=== PATIENT | female | born 1980 | race Caucasian/White ===

== ENCOUNTER 2018-01-12 05:18 | Emergency (ER) | payer MEDICARE, MEDICAID, SELFPAY ==
[2018-01-12 05:20] VITALS: BP 118/83; PULSE 81; RESP 20; TEMP 36.7; O2SAT 98; BMI 35.4
[2018-01-12] MEDS: Ondansetron 4 MG/2 ML Vial IV (05:55)
[2018-01-12] MEDS: 0.9% Normal Saline 1,000 ML 999 ML IV (05:55)
[2018-01-12] MEDS: Morphine 4 MG/ML Syringe IV (05:56)
[2018-01-12 06:09] LABS: Bacteria 0 SEEN /hpf (None Seen); Mucous, Urine 0 SEEN /hpf (<or=2+); Red Blood Cells-Urine 0 SEEN /hpf (0-5)
[2018-01-12 06:11] LABS: Absolute Lymphocyte Count 1.68 X10^3/ul (0.83-4.51); Basophil# 0.03 X10^3/uL; Basophil% 0.6 % (0-1); Eosinophils% 1.9 % (0-5); Hematocrit 38.2 % (37-47); Hemoglobin 12.7 g/dl (12.0-15.0); Lymphocyte # 1.68 X10^3/ul (4.0); Lymphocyte % 32.7 % (19-41); Mean Corp Hgb Conc 33.2 g/gl (32-36); Mean Corpuscular Hgb 29.9 pg (27.0-32.0); Mean Corpuscular Volume 89.9 fL (81-99); Mean Platelet Vol. 9.6 fl (6.2-12.0); Monocyte# 0.32 X10^3/uL; Monocyte% 6.2 % (0-10); Neutrophil # 2.98 X10^3/uL (2.7-7.7); Neutrophil % 58.2 % (47-70); Platelet Count 263 K/mm3 (150-450); RBC Distribution Width CV 13.3 % (11.6-14.6); RBC Distribution Width SD 43.2 fl (35.1-43.9); Red Blood Count 4.25 M/mm3 (4.2-5.4); White Blood Count 5.1 K/mm3 (4.4-11.0)
[2018-01-12 06:14] LABS: POSITIVE COUNT NO; POSITIVE DIFFERENTIAL NO; POSITIVE MORPHOLOGY NO
[2018-01-12 06:18] LABS: Anion Gap 6 (5-15); BUN 13 mg/dL (7-18); BUN/Creat Ratio 22.1 RATIO (10-20); Calcium,Total 7.6 mg/dL (8.5-10.1); Chloride 107 mmol/L (98-107); Creatinine, Serum 0.59 mg/dL (0.55-1.02); EST Glomerular Filtration Rate 122 mL/min (>60); Est Glom Filt Rate - Afr Amer 147 mL/min (>60); Estimated Creatinine Clearance 111.64 ml/min; Glucose 291 mg/dL (74-106); Potassium 3.7 mmol/L (3.5-5.1); Sodium Level 138 mmol/L (136-145)
[2018-01-12 06:20] LABS: Color, Urine Yellow (Yellow); Glucose, Dipstick 1000 mg/dl (Normal); Ketone-Dipstick Negative (Negative); Leukocyte Esterase-Dipstick 500 /ul (Negative); Nitrite-Dipstick Positive (Negative); Occult Blood-Urine 25 /ul (Negative); Protein-Dipstick 15 mg/dl (Negative); Urine Bilirubin Dipstick Negative (Negative); Urine Clarity Sl. Cloudy (Clear); Urine Urobilinogen Normal (Normal)
[2018-01-12 06:23] LABS: Internal QC Validated? YES +Cl - CLEAR BKGD; Pregnancy, Urine Negative Negative
--- NOTE | 2018-01-12 06:33 | ED.VISSUMM ---
- ER Visit Summary Date of Service: 01/12/18 Chief Complaint: Left flank pain History of Present Illness: The patient is a 37 F presenting with left flank pain. This started 2 days ago. She has tried ibuprofen at home with no relief. She went to [facility] yesterday. She had blood work and CT which were unremarkable per the patient. She was told that she did not have a kidney stone. She states this feels like her previous kidney infections. She denies fever or other complaints. Physical Examination: Vitals are stable. Patient is afebrile. Alert no acute distress. HEENT exam is unremarkable. Neck is supple. Lungs are clear and equal bilaterally. Heart is regular rate and rhythm. Abdomen is soft nontender nondistended. No guarding or rebound Back: left CVA tenderness Extremities are unremarkable. Skin is warm and dry. Remainder of exam is unremarkable. Emergency Department Course and Treatment: Patient is given morphine, Zofran IV. CBC unremarkable. Chemistries show glucose 291. HCG negative. UA is contaminated, also shows 25-50 white blood cells, positive leukocyte, positive nitrite. She states this feels very similar to previous kidney infections. Patient is given Bactrim. She is advised to follow-up with Dr. Russo diet consultant for no doc. Advised return to ED if worsening complaints. Disposition: Discharge home Impression: Pyelonephritis This note was generated with [employer] dictation software. It may contain incorrect words, spelling, and punctuation that were not noted in review of the chart prior to signing ED Disposition - Plan for ED Patient: Chief Complaint: Flank Pain Instructions: ED Kidney Infec Female Prescriptions: Smz/Tmp Ds [Bactrim Ds] 1 tablet PO BID #14 tablet Referrals: Pedro Russo MD [STAFF PHYSICIAN] - Care Physician,No Primary [Primary Care Provider] -
[2018-01-12 06:34] LABS: Squamous Epithelial Cells - UA 25-50 SEEN /hpf (5-10); White Blood Cells 25-50 SEEN /hpf (0-5)
--- NOTE | 2018-01-12 06:39 | ED.DEP ---
ED Disposition - Plan for ED Patient: Chief Complaint: Flank Pain Instructions: ED Kidney Infec Female Prescriptions: Smz/Tmp Ds [Bactrim Ds] 1 tablet PO BID #14 tablet Referrals: Care Physician,No Primary [Primary Care Provider] - Pedro Russo MD [STAFF PHYSICIAN] -
[2018-01-12] MEDS: Smz/Tmp Ds Tablet 1 TABLET PO (07:01)
[2018-01-12 07:03] VITALS: BP 123/58; PULSE 69; O2SAT 96
== END 2018-01-12 07:04 | disposition home or self-care (01) ==
LOC: ED 05:49
PROVIDERS: Emergency Provider Emergency Medicine
DX: N12 Tubulo-interstitial nephritis, not specified as acute or chronic (principal); Z72.0 Tobacco use; Z85.41 Personal history of malignant neoplasm of cervix uteri
CPT/HCPCS: 80048; 81001; 81025; 85025; 96361; 96374; 96375; 99283; J7030; A4216; J2405

== ENCOUNTER 2018-05-28 08:07 | Emergency (ER) | payer SELFPAY ==
[2018-05-28 08:09] VITALS: BP 132/77; PULSE 85; RESP 16; TEMP 36; O2SAT 99; BMI 31.6
--- NOTE | 2018-05-28 08:39 | ED.VISSUMM ---
- ER Visit Summary Date of Service: 05/28/18 Chief Complaint: Abdominal pain History of Present Illness: The patient is a 37 F with no primary care physician. She reports that she has a history of cervical cancer that required radiation. This was complicated by a bowel rupture which resulted in a colostomy which was converted to an ileostomy and then reversed in 2013 2014. She was left with hernias from this. She reports that she has had abdominal pain for approximately a month. The pain is intermittent and it began again this morning. Is a cramping pain is 5 out of 10 severity currently an 8 out of 10 severity at worst. Is worsened by laying on her left side. Is relieved by a hot bath. She had nausea without vomiting. She reports that she had 3 episodes of diarrhea today and 2 yesterday. No blood in her stools or black tarry stools. She is passing flatus. She has frequent urination with large volumes. She denies any dysuria. On review of systems patient reports she has a sore throat is 3 out of 10 severity and a mild cough. She denies any fever or chills. No chest pain or shortness of breath. Physical Examination: Vitals: Stable. Afebrile. General: Well-nourished and well-developed. Head: Normocephalic atraumatic. HEENT: Pharyngeal erythema. No tonsillar exudate or enlargement. No cervical lymphadenopathy. Neck: Supple, no lymphadenopathy. No JVD. Nontender. Cardiovascular: Regular rate and rhythm. No murmurs. Respiratory: No respiratory distress. Clear to auscultation bilaterally. Abdominal: Soft, large ventral hernia in the epigastric region that is easily reducible. Moderate sized ventral hernia in the left lower quadrant that is also easily reducible. Both of these areas are mildly tender to palpation. Nondistended, normal bowel sounds. No guarding, rebound, or peritoneal signs. Back: Nontender. Extremities: Nontender, no edema. Skin: Normal color, no rash. Neurologic: Alert and oriented ?3. Cranial nerves II through XII are intact. Normal strength and sensation. Psych: Normal affect. Emergency Department Course and Treatment: I had a prolonged discussion with the patient about the etiology of hernias and when they need to be addressed. She readily admits that she is just so paranoid about the possibility of bowel rupture from her prior colostomy that she was concerned about this. We also discussed her frequent urination. She does report that she has a history of type 2 diabetes mellitus and does not have insurance. She has not been taking any medications for approximately 6 months. She was on metformin and glimepiride. I offered to do screening labs and hemoglobin A1c on the patient. However, she has financial concerns that she is not insured. An Accu-Chek was obtained and her blood sugar is 314. Treatment Plan: I had a prolonged discussion with the patient about the need to treat her diabetes mellitus. She reports that she was supposed to have her ventral hernias repaired, but that they could not because her sugar had been out of control. She will be discharged on metformin 500 mg twice daily which she is on [employer] $4 list. She is also instructed to follow-up the [facility] within 1 week to get her sugar checked again. I discussed with the fact that they would have resources available to help with blood sugar monitoring equipment and once her sugar is better controlled she can then have her hernia repaired. We discussed the symptoms of a strangulated or incarcerated hernia and she is instructed to return for the emergency department for these things. Return to the emergency department for any worsening symptoms. Disposition: To home in improved and stable condition. Impression: 1. Ventral hernias. 2. Type 2 diabetes mellitus. This note was generated with [employer] dictation software. It may contain incorrect words, spelling, and punctuation that were not noted in review of the chart prior to signing ED Disposition - Plan for ED Patient: Instructions: What Is Type 2 Diabetes?, What Is a Hernia? Prescriptions: Metformin HCl 500 mg PO BID #60 tablet Referrals: [facility] [NON-STAFF] - 1 Week
[2018-05-28 08:45] LABS: Bedside Glucose 314 mg/dL (70-110)
--- NOTE | 2018-05-28 08:49 | ED.DCSUM_ITS ---
- ER Visit Summary Date of Service: 05/28/18 Chief Complaint: Abdominal pain History of Present Illness: The patient is a 37 F with no primary care physician. She reports that she has a history of cervical cancer that required radiation. This was complicated by a bowel rupture which resulted in a colostom y which was converted to an ileostomy and then reversed in 2013 2014. She was left with hernias from this. She reports that she has had abdominal pain for approximately a month. The pain is intermittent and it began again this morning. Is a cramping pain is 5 out of 10 severity currently an 8 out of 10 severity at worst. Is worsened by laying on her left side. Is relieved by a hot bath. She had nausea without vomiting. She reports that she had 3 episodes of diarrhea today and 2 yesterday. No blood in her stools or black tarry stools. She is passing flatus. She has frequent urination with large volumes. She denies any dysuria. On review of systems patient reports she has a sore throat is 3 out of 10 severity and a mild cough. She denies any fever or chills. No chest pain or s hortness of breath. Physical Examination: Vitals: Stable. Afebrile. General: Well-nourished and well-developed. Head: Normocephalic atraumatic. HEENT: Pharyngeal erythema. No tonsillar exudate or enlargement. No cervical lymphadenopathy. Neck: Supple, no lymphadenopathy. No JVD. Nontender. Cardiovascular: Regular rate and rhythm. No murmurs. Respiratory: No respiratory distress. Clear to auscultation bilaterally. Abdominal: Soft, large ventral hernia in the epigastric region that is easily reducible. Moderate sized ventral hernia in the left lower quadrant that is also easily reducible. Both of these areas are mildly tender to palpation. Nondistended, normal bowel sounds. No guarding, rebound, or peritoneal signs. Back: Nontender. Extremities: Nontender, no edema. Skin: Normal color, no rash. Neurologic: Alert and oriented ?3. Cranial nerves II through XII are intact. Normal strength and sensation. Psych: Normal affect. Emergency Department Course and Treatment: I had a prolonged discussion with the patient about the etiology of hernias and when they need to be addressed. She readily admits that she is just so paranoid about the possibility of bowel rupture from her prior colostomy that she was concerned about this. We also discussed her frequent urination. She does report that she has a history of type 2 diabetes mellitus and does not have insurance. She has not been taking any medications for approximately 6 months. She was on metformin and glimepiride. I offered to do screening labs and hemoglobin A1c on the patient. However, she has financial concerns that she is not insured. An Accu-Chek was obtained and her blood sugar is 314. Treatment Plan: I had a prolonged discussion with the patient about the need to treat her diabetes mellitus. She reports that she was supposed to have her ventral hernias repaired, but that they could not because her sugar had been out of control. She will be discharged on metformin 500 mg twice daily which she is on [employer] $4 list. She is also instructed to follow-up the [facility] within 1 week to get her sugar checked again. I discussed with the fact that they would have resources available to help with blood sugar monitoring equipment and once her sugar is better controlled she can then have her hernia repaired. We discussed the symptoms of a strangulated or incarcerated hernia and she is instructed to return for the emergency department for these things. Return to the emergency department for any worsening symptoms. Disposition: To home in improved and stable condition. Impression: 1. Ventral hernias. 2. Type 2 diabetes mellitus. This note was generated with [employer] dictation software. It may contain incorrect words, spelling, and punctuation that were not noted in review of the chart prior to signing ED Disposition - Plan for ED Patient: Instructions: What Is Type 2 Diabetes?, What Is a Hernia? Prescriptions: Metformin HCl 500 mg PO BID #60 tablet Referrals: [facility] [NON-STAFF] - 1 Week
[2018-05-28 09:16] VITALS: PULSE 88; RESP 16; O2SAT 99
== END 2018-05-28 09:19 | disposition home or self-care (01) ==
PROVIDERS: Emergency Provider Emergency Medicine
DX: K43.9 Ventral hernia without obstruction or gangrene (principal); E11.9 Type 2 diabetes mellitus without complications; F17.210 Nicotine dependence, cigarettes, uncomplicated; J02.9 Acute pharyngitis, unspecified; Z93.2 Ileostomy status; Z85.41 Personal history of malignant neoplasm of cervix uteri
CPT/HCPCS: 82962; 99282

== ENCOUNTER 2018-07-27 13:51 | Emergency (ER) | payer SELFPAY ==
[2018-07-27 13:52] VITALS: BP 130/77; PULSE 89; RESP 16; TEMP 36.6; O2SAT 100; BMI 28.3
--- NOTE | 2018-07-27 14:28 | CT_ITS ---
STUDY: CT ABDOMEN AND PELVIS WITHOUT CONTRAST REASON FOR EXAM: Female, 37 years old. Abdominal pain and nausea beginning today. History of multiple hernias, ileostomy and colostomy. History of cervical cancer with radiation. RADIATION DOSAGE (If Supplied By Facility): CTDIvol = ( 11.62 ) mGy, DLP = ( 587.37 ) mGycm TECHNIQUE: Transaxial images were obtained from the dome of the diaphragm to the symphysis pubis without oral contrast, and without intravenous contrast. Sagittal and coronal images were reconstructed. Individualized dose optimization techniques were used for this CT. COMPARISON: None. FINDINGS: The visualized lung bases are unremarkable. The visualized portions of the heart are within normal limits. The liver is mildly enlarged but uniform in density without obvious mass. Normal gallbladder and extrahepatic biliary system. Borderline splenomegaly. Normal pancreas. Normal bilateral adrenal glands. Normal right kidney. Normal left kidney. Normal visualized stomach. There are surgical changes in the small bowel in the left lower quadrant. Small bowel appears otherwise unremarkable. Findings suggestive of partial left colectomy surgical clips along the descending and sigmoid colon. The cecum lies bladder dome. There is non-visualization of the appendix. Normal abdominal aorta. There is an IVC filter in place. Normal retroperitoneum. Normal urinary bladder. The uterus is of normal size. There is no adnexal mass. No pelvic lymphadenopathy. There is a large phlebolith in the right pelvis. There is no free fluid in both supra vesical spaces extending upward along the paracolic gutters most marked on the left. There is no evidence of free air. There is a supraumbilical hernia containing a portion of the transverse colon without obstruction. Slightly lower to the left is a hernia through the mid rectus muscle containing multiple nonobstructed small bowel loops as well as minimal ascites. There are surgical clips in the overlying skin. This is thought to be a site of a prior ileostomy or colostomy. There is a cyst midline surgical scar. Normal osseous structures. CT/Abdomen/Pelvis without Cont IMPRESSION: 1. Multiple abdominal hernias containing both colon and small bowel. There is no obvious obstruction. 2. Mild ascites most marked in the left paracolic gutter. 3. Mild hepatosplenomegaly. 4. IVC filter. 5. A surgical changes of the small bowel as well as what appears to be a partial left colectomy. Electronically Signed: Tea Lee DO at 16:30 EDT Tel [phone], Service support ,
--- NOTE | 2018-07-27 14:30 | ED.VISSUMM ---
- ER Visit Summary Date of Service: 07/27/18 Chief Complaint: [] Left lower abdominal pain directly over prior ileostomy site History of Present Illness: The patient is a 37 F [] indicates that she has had extensive abdominal surgery related to the fact that she had cervical cancer in 2011 after radiation therapy she indicates her bowel rupture, and she had colostomy was then ileostomies on the same area of the left lower abdomen, all those conditions improved and her ileostomies were reversed she reports for many many months she has been having intermittent pain to left lower abdomen ileostomy site region she knows she has a hernia to this area, she indicates she is waiting for her insurance to kick in the last few weeks the pain seems to intensify and intensified while she was at work for unspecified reasons and she came to the emergency department, She is been able to eat and drink without difficulty bowel bladder habits have been unremarkable, she denies as she reports her ovaries removed away from the radiation site, she denies any other past history Physical Examination: [] Vital signs are within normal range General, no distress resting comfortably HEENT is generally unremarkable The neck is supple no adenopathy Cardiovascular, regular rate and rhythm Lungs, clear bilateral Abdomen, soft nontender, she does have an area to the left lower abdomen that basically is demarcated by her prior either ileostomy or colostomy she states they were both in the same spot there is a slight defect in the skin and subcu tissue here about 1 or 2 cm this area however is soft there is no rebound guarding organomegaly or signs of obvious hernia or incarceration at this time but this is the area that is been troubling her for many months, there is no warmth redness or signs of infection or mass Extremities, no clubbing cyanosis or edema Neurologic, awake alert answering questions appropriately moving all 4 extremities Test Results: [] Emergency Department Course and Treatment: [] This is a long-standing issue for many months given all the above screening labs and CT are obtained Treatment Plan: [] The patient's screening labs are unremarkable except there are signs of UTI versus contamination on the UA urine culture sent she was started on Cipro, the abdominal CT shows again multiple abdominal hernias there are some loops of bowel and some of them there is no signs of obstruction Dilation the patient is resting company in the bed the abdomen remains soft and nontender her only complaint is left lower quadrant prior ileostomy site and there is an obvious hernia here there is no signs of obstruction had a long conversation with her she is comfortable discharge home she will be treated with Cipro for the UTI she will be referred to the starts been clinic as primary care management I also suggested she follow-up with her [facility] surgeons for further evaluation of all these abdominal wall hernias, we did discuss the concept of incarceration obstruction etc. she understands and again she is been having the symptoms long-standing she will follow-up and return for change in symptoms, she also knows that the urine culture was sent and her follow-up physician should review that Disposition: [] Home with stable Impression: [] Acute recurrent abdominal pain, history of abdominal wall hernias repaired related to multiple abdominal surgeries, UTI This note was generated with [employer] dictation software. It may contain incorrect words, spelling, and punctuation that were not noted in review of the chart prior to signing ED Disposition - Plan for ED Patient: Referrals: Care Physician,No Primary [Primary Care Provider] -
[2018-07-27] MEDS: 0.9% Normal Saline 1,000 ML 1000 ML IV (15:08)
[2018-07-27] MEDS: Morphine 4 MG/ML Syringe IV (15:09)
[2018-07-27] MEDS: Ondansetron 4 MG/2 ML Vial IV (15:10)
[2018-07-27 15:12] VITALS: BP 130/77; PULSE 89; RESP 16; TEMP 36.6; O2SAT 100
[2018-07-27 15:28] LABS: Absolute Lymphocyte Count 1.32 X10^3/ul (0.83-4.51); Absolute Neutrophil Count 3.8 X10^3/uL (2.0-7.7); Basophil# 0.01 X10^3/uL; Basophil% 0.2 % (0-1); Eosinophil# 0.03 X10^3/uL; Eosinophils% 0.5 % (0-5); Hematocrit 39.6 % (37-47); Lymphocyte # 1.32 X10^3/ul (4.0); Mean Corp Hgb Conc 32.8 g/gl (32-36); Mean Corpuscular Volume 88.4 fL (81-99); Mean Platelet Vol. 9.2 fl (6.2-12.0); Monocyte% 5.4 % (0-10); Neutrophil # 3.83 X10^3/uL (2.7-7.7); Neutrophil % 69.5 % (47-70); Platelet Count 263 K/mm3 (150-450); RBC Distribution Width CV 12.9 % (11.6-14.6); Red Blood Count 4.48 M/mm3 (4.2-5.4); White Blood Count 5.5 K/mm3 (4.4-11.0)
[2018-07-27 15:29] LABS: Color, Urine Yellow (Yellow); Glucose, Dipstick 50 mg/dl (Normal); Ketone-Dipstick 5 mg/dl (Negative); Leukocyte Esterase-Dipstick 100 /ul (Negative); Nitrite-Dipstick Negative (Negative); Occult Blood-Urine 250 /ul (Negative); Protein-Dipstick 100 mg/dl (Negative); Specific Gravity, Urine 1.025 (1.002-1.030); Urine Bilirubin Dipstick Negative (Negative); Urine Clarity Cloudy (Clear); Urine Urobilinogen Normal (Normal)
[2018-07-27 15:36] LABS: POSITIVE COUNT NO; POSITIVE DIFFERENTIAL NO; POSITIVE MORPHOLOGY NO
[2018-07-27 15:41] LABS: Bacteria 2+ /hpf (None Seen); Mucous, Urine 4+ /hpf (<or=2+); Red Blood Cells-Urine 50-100 SEEN /hpf (0-5); Squamous Epithelial Cells - UA 0-5 SEEN /hpf (5-10); White Blood Cells 10-25 SEEN /hpf (0-5)
[2018-07-27 15:48] LABS: AST(SGOT) 7 U/L (15-37); Alanine Aminotransfer ALT/SGPT 12 U/L (13-56); Albumin, Serum 3.3 g/dL (3.2-5.0); Alkaline Phosphatase 53 U/L (45-117); Anion Gap 6 (5-15); BUN 9 mg/dL (7-18); BUN/Creat Ratio 14.4 RATIO (10-20); Bilirubin, Direct 0.11 mg/dL (0.00-0.30); Calcium,Total 8.7 mg/dL (8.5-10.1); Chloride 102 mmol/L (98-107); Creatinine, Serum 0.62 mg/dL (0.55-1.02); EST Glomerular Filtration Rate 113 mL/min (>60); Est Glom Filt Rate - Afr Amer 137 mL/min (>60); Estimated Creatinine Clearance 101.77 ml/min; Globulin 3.9 g/dL (2.2-4.2); Glucose 167 mg/dL (74-106); Lipase 62 U/L (73-393); Potassium 3.5 mmol/L (3.5-5.1); Protein, Total 7.2 g/dL (6.4-8.2); Sodium Level 138 mmol/L (136-145)
[2018-07-27 15:54] LABS: Internal QC Validated? YES +Cl - CLEAR BKGD; Pregnancy, Serum, hCG Quali. NEGATIVE Negative
--- NOTE | 2018-07-27 16:47 | ED.DEP ---
ED Disposition - Plan for ED Patient: Instructions: ED Abdominal Pain Unkn Cause, ED UTI Cystitis Female Prescriptions: Ciprofloxacin [Cipro] 500 mg PO BID #14 tab Referrals: Care Physician,No Primary [Primary Care Provider] - [facility] [NON-STAFF] - Additional Instructions: Please follow-up with your surgeons at [facility] for the abdominal wall hernias return for change in symptoms, have your outpatient providers check the results of your urine culture
--- NOTE | 2018-07-27 16:50 | DCINST.ED_ITS ---
ED Disposition - Plan for ED Patient: Instructions: ED Abdominal Pain Unkn Cause, ED UTI Cystitis Female Prescriptions: Ciprofloxacin [Cipro] 500 mg PO BID #14 tab Referrals: Care Physician,No Primary [Primary Care Provider] - [facility] [NON-STAFF] - Additional Instructions: Please follow-up with your surgeons at [facility] for the abdominal wall hernias return for change in symptoms, have your outpatient providers check the results of your urine culture
--- NOTE | 2018-07-27 16:51 | DCINST.ED_ITS ---
ED Disposition - Plan for ED Patient: Instructions: ED Abdominal Pain Unkn Cause, ED UTI Cystitis Female Prescriptions: Ciprofloxacin [Cipro] 500 mg PO BID #14 tab Referrals: [facility] [NON-STAFF] - Care Physician,No Primary [Primary Care Provider] - Additional Instructions: Please follow-up with your surgeons at [facility] for the abdominal wall hernias return for change in symptoms, have your outpatient providers check the results of your urine culture
[2018-07-27 17:05] VITALS: BP 97/65; RESP 18
== END 2018-07-27 17:07 | disposition home or self-care (01) ==
LOC: ED 14:43
PROVIDERS: Emergency Provider Emergency Medicine
DX: K46.9 Unspecified abdominal hernia without obstruction or gangrene (principal); N39.0 Urinary tract infection, site not specified; Z93.2 Ileostomy status; Z85.41 Personal history of malignant neoplasm of cervix uteri; Z93.3 Colostomy status
CPT/HCPCS: 74176; 80048; 80076; 81001; 83690; 84703; 85025; 87086; 87088; 87186; 96361; 96374; 96375; 99285; J7030; J2405

== ENCOUNTER 2018-09-21 14:40 | Emergency (ER) | payer SELFPAY ==
[2018-09-21 14:41] VITALS: BP 134/68; PULSE 89; RESP 18; TEMP 36.3; O2SAT 98; BMI 30.6
[2018-09-21 14:55] LABS: Bedside Glucose 231 mg/dL (70-110)
[2018-09-21] MEDS: 0.9% Normal Saline 1,000 ML 1000 ML IV (15:22)
--- NOTE | 2018-09-21 15:23 | ED.DCSUM_ITS ---
- ER Visit Summary Date of Service: 09/21/18 Chief Complaint: [Concern for hyperglycemia] History of Present Illness: The patient is a 37 F [to the emergency department concerned that she might have elevated blood sugars. Patient states that she has been without her oral diabetic medications for about 2 months when she ran out because she does not have insurance. While at work today patient states that she started feeling very fatigued and started having numbness and tingling in her right hand mostly the fingertips as well as the right foot/toes. Patient states the symptoms started about 3 hours ago. Patient has had similar episodes multiple times in the last year when her blood sugars been elevated. Patient states that she does not have a working glucometer. She denies any weakness in extremities. She denies any headache. Patient felt well prior to arriving to work. Patient has history of diabetes that she was diagnosed with about 5 years ago after she was treated for cervical cancer. Patient also with some history of anxiety. She currently only has some mild residual numbness and tingling in the fingertips of the right hand however the foot has resolved.] Physical Examination: HEENT-PERRLA, EOMI. Cranial nerves II through XII grossly intact. TMs clear. Mucous membranes moist. No adenopathy. Cardiovascular-regular rate and rhythm without murmur or ectopy Lungs-clear to auscultation, chest wall stable without crepitus or subcu emphysema Abdomen-normoactive bowel sounds, soft, nontender, no rebound or rigidity, no peritoneal signs. Neuro tjog-klpija-[id number]-nose and heel harris testing within normal limits, negative Romberg, negative , Fundi benign. NIH stroke scale was a 1 given for some paresthesias to the fingertips. Extremities-intact ?4, normal range of motion, normal pulses, atraumatic [] Test Results: CBC with differential 15 was normal. Chemistries unremarkable. BUN was centigram 0.77. Glucose was 220. [] Emergency Department Course and Treatment: [Same fluid bolus. Case was discussed with Dr. De La Rosa who is on-call for no doc. I was asked to start patient on metformin 500 mg ER once a day as well as Amaryl 4 mg daily. It would be happy to follow her up in the office.] Treatment Plan: [Follow-up with primary care physician in 3 to 5 days.] Disposition: [Discharged home in stable condition] Impression: Paresthesias Hyperglycemia] This note was generated with [employer] dictation software. It may contain incorrect words, spelling, and punctuation that were not noted in review of the chart prior to signing ED Disposition - Plan for ED Patient: Referrals: Care Physician,No Primary [Primary Care Provider] -
[2018-09-21 15:36] LABS: Anion Gap 5 (5-15); BUN 10 mg/dL (7-18); BUN/Creat Ratio 13.1 RATIO (10-20); Calcium,Total 8.6 mg/dL (8.5-10.1); Chloride 105 mmol/L (98-107); Creatinine, Serum 0.77 mg/dL (0.55-1.02); EST Glomerular Filtration Rate 89 mL/min (>60); Est Glom Filt Rate - Afr Amer 108 mL/min (>60); Estimated Creatinine Clearance 85.54 ml/min; Glucose 220 mg/dL (74-106); Potassium 3.4 mmol/L (3.5-5.1); Sodium Level 139 mmol/L (136-145)
[2018-09-21 15:37] LABS: Absolute Lymphocyte Count 1.38 X10^3/ul (0.83-4.51); Absolute Neutrophil Count 3.4 X10^3/uL (2.0-7.7); Eosinophil# 0.06 X10^3/uL; Eosinophils% 1.2 % (0-5); Hematocrit 36.8 % (37-47); Hemoglobin 12.2 g/dl (12.0-15.0); Lymphocyte # 1.38 X10^3/ul (4.0); Mean Corp Hgb Conc 33.2 g/gl (32-36); Mean Corpuscular Hgb 29.6 pg (27.0-32.0); Mean Corpuscular Volume 89.3 fL (81-99); Mean Platelet Vol. 9.5 fl (6.2-12.0); Monocyte# 0.31 X10^3/uL; Monocyte% 6.1 % (0-10); Neutrophil # 3.36 X10^3/uL (2.7-7.7); Neutrophil % 65.5 % (47-70); Platelet Count 254 K/mm3 (150-450); RBC Distribution Width CV 13.3 % (11.6-14.6); RBC Distribution Width SD 42.4 fl (35.1-43.9); Red Blood Count 4.12 M/mm3 (4.2-5.4); White Blood Count 5.1 K/mm3 (4.4-11.0)
[2018-09-21 15:38] LABS: POSITIVE COUNT NO; POSITIVE DIFFERENTIAL NO; POSITIVE MORPHOLOGY NO
[2018-09-21 16:30] LABS: Bedside Glucose 165 mg/dL (70-110)
--- NOTE | 2018-09-21 16:44 | ED.DEP ---
ED Disposition - Plan for ED Patient: Instructions: Diabetic Hyperglycemia, Paraesthesias Prescriptions: Glimepiride [Amaryl] 4 mg PO DAILY #30 tab Prescription Printed Metformin HCl [Metformin HCl ER] 500 mg PO DAILY #30 tab.er.24h Prescription Printed Referrals: Care Physician,No Primary [Primary Care Provider] - Leatha De La Rosa MD [STAFF PHYSICIAN] - 3-5 Days
[2018-09-21 16:55] VITALS: RESP 18; O2SAT 94
== END 2018-09-21 16:56 | disposition home or self-care (01) ==
PROVIDERS: Emergency Provider Emergency Medicine
DX: R20.2 Paresthesia of skin (principal); E11.65 Type 2 diabetes mellitus with hyperglycemia; F17.210 Nicotine dependence, cigarettes, uncomplicated; Z85.41 Personal history of malignant neoplasm of cervix uteri; F41.9 Anxiety disorder, unspecified
CPT/HCPCS: 80048; 82962; 85025; 99283; J7030; A4216

== ENCOUNTER 2018-11-09 16:20 | Emergency (ER) | payer SELFPAY ==
[2018-11-09 16:21] VITALS: BP 120/75; PULSE 84; RESP 16; TEMP 36.1; O2SAT 99; BMI 32.1
[2018-11-09 16:52] VITALS: BP 117/72; PULSE 84; RESP 14; O2SAT 100
[2018-11-09 17:02] VITALS: O2SAT 99
--- NOTE | 2018-11-09 17:02 | RAD_ITS ---
STUDY: X-RAY CHEST REASON FOR EXAM: Female, 38 years old. Chest pain TECHNIQUE: Single AP portable view of the chest. COMPARISON: CT scan from 07/27/2018 FINDINGS: Stable blunting of the left lateral costophrenic angle due to chronic pleural-parenchymal change. The rest of bilateral lungs are clear and expanded. There is no demonstrated pleural abnormality on the right. Normal size heart. Normal mediastinum and luis enrique. Normal visualized pulmonary arteries. Normal visualized aortic arch and descending thoracic aorta. Unremarkable visualized thoracic spine. Normal visualized ribs, clavicles, and shoulders. There is no demonstrated abnormality of the visualized soft tissue structures of the upper abdomen. 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 No evidence of acute intrathoracic process, pneumonia, or CHF. Electronically Signed: Calin Gil MD at 17:25 EDT Tel [phone], Service support ,
--- NOTE | 2018-11-09 17:02 | EKG12_ITS ---
Test Reason : CP Blood Pressure : / mmHG Vent. Rate : 077 BPM Atrial Rate : 077 BPM P-R Int : 142 ms QRS Dur : 076 ms QT Int : 382 ms P-R-T Axes : 041 013 019 degrees QTc Int : 432 ms Normal sinus rhythm Normal ECG Confirmed by AZAM ARIZA, GARCIA ([id number]), medical transcription editor AKUA ANDRES ([id number]) on 11/12/2018 1:03:08 PM Referred By: PC Confirmed By:GARCIA NASCIMENTO MD
[2018-11-09] MEDS: Aspirin 81 MG TAB.CHEW 324 MG PO (17:09)
[2018-11-09 17:13] LABS: Absolute Lymphocyte Count 1.57 X10^3/uL (0.83-4.51); Absolute Neutrophil Count 4.5 X10^3/uL (2.0-7.7); Basophil# 0.01 X10^3/uL; Basophil% 0.2 % (0-1); Eosinophil# 0.03 X10^3/uL; Eosinophils% 0.5 % (0-5); Hematocrit 40.3 % (37-47); Hemoglobin 13.5 g/dL (12.0-15.0); Lymphocyte # 1.57 X10^3/ul (4.0); Lymphocyte % 24.2 % (19-41); Mean Corp Hgb Conc 33.5 g/dL (32-36); Mean Corpuscular Hgb 30.8 pg (27.0-32.0); Mean Corpuscular Volume 91.8 fL (81-99); Mean Platelet Vol. 8.9 fl (6.2-12.0); Monocyte# 0.38 X10^3/uL; Monocyte% 5.8 % (0-10); NRBC Flagged by Analyzer 0 % (0-5); Neutrophil # 4.49 X10^3/uL (2.7-7.7); Platelet Count 261 K/mm3 (150-450); RBC Distribution Width CV 12.7 % (11.6-14.6); RBC Distribution Width SD 42.5 fl (35.1-43.9); Red Blood Count 4.39 M/mm3 (4.2-5.4); White Blood Count 6.5 K/mm3 (4.4-11.0)
--- NOTE | 2018-11-09 17:27 | ED.RN ---
NO OLD EKG
[2018-11-09 17:29] LABS: Anion Gap 3 (5-15); BUN 14 mg/dL (7-18); BUN/Creat Ratio 19.2 RATIO (10-20); Chloride 104 mmol/L (98-107); Creatinine, Serum 0.73 mg/dL (0.55-1.02); EST Glomerular Filtration Rate 95 mL/min (>60); Est Glom Filt Rate - Afr Amer 114 mL/min (>60); Estimated Creatinine Clearance 85.59 ml/min; Glucose 132 mg/dL (74-106); Potassium 3.9 mmol/L (3.5-5.1); Sodium Level 139 mmol/L (136-145)
[2018-11-09 17:46] LABS: D-Dimer Quantitative (DVT/PE) < 0.27 FEU/ug/m (0.27-0.49)
--- NOTE | 2018-11-09 18:15 | ED.VIS.GEN ---
History of Present Illness Chief Complaint: Chest Pain Informant: Patient Onset: Today Timing: Continuous Current Severity: Moderate Maximum Severity: Moderate Narrative: Patient presents with chest pain that started while at work. She has had it for about 4 hours it is significantly improving. She felt flushed, a little hot, she tells me she has sharp chest pain without any cough congestion fever or chills. She has no shortness of breath. She has no back pain or tearing sensation. She has no pleuritic component, however she does tell me she has an IVC filter from prior DVT due to cervical cancers. She tells me that cervical cancer is in remission. Past Medical History - Allergies and Home Meds Allergies/Adverse Reactions: Allergies Penicillins Adverse Reaction (Verified 07/27/18 13:53) Nausea/Vom/Diarrhea Primary Care Physician: Care Physician,No Primary [Primary Care Provider] - Past Medical History: - - Cervical cancer, prior DVT Surgical History: - - Colostomy and ileostomy cancer removal Smoking Status: Current every day smoker Review of Systems All systems negative except as indicated General: Denies: Chills, Fever Eyes: Denies: Visual changes - left Cardiovascular: Denies: Chest pain, Palpitations Respiratory: Denies: Dyspnea, Cough Gastrointestinal: Denies: Abdominal pain Musculoskeletal: Denies: Back pain Skin: Denies: Rash Neurological: Denies: Headache Hematologic: Denies: Easy bruising Allergy: Denies: Uticaria, Swelling of the mouth Physical Exam Vital Signs/Narrative: Vital Signs Temp Pulse Resp BP Pulse Ox 11/09/18 17:02 99 11/09/18 16:52 84 14 117/72 100 11/09/18 16:21 97 F L 84 16 120/75 99 General: Well nourished, Well developed Eyes: Perrl, EOMI ENT: Moist mucous membranes Cardiovascular: Regular rate, Regular rhythm, No murmurs Respiratory: No distress, CTA bilaterally Abdomen: Soft, Nontender Back: Nontender, Normal Inspection Extremities: Nontender, No edema, Tenderness Skin: Normal color Neurological: Alert, Oriented x3, Normal Sensation Diagnostic/Tx/Re-eval Chest X-Ray - ED: 1 View, Normal, Heart, Lungs - Rhythm Strip Rhythm Strip: Sinus Rhythm Rate: 77 Ectopy: None - EKG Initial EKG Interpretation: Sinus Rhythm, No Acute Injury Pattern, - - Normal DE, normal QTC. Normal ST segments without any signs of ischemia. Interpreted by emergency doctor - Medical Decision Making Patient has a normal cardiac work-up. She has normal x-ray EKG and a negative d-dimer. Her heart score is a 2. I feel confident discharging. She is to follow-up. I did tell her that if anything changes she needs to return. Position discharge stable condition ED Disposition - Plan for ED Patient: Disposition: Home or Assisted Living Diagnosis: Chest pain Instructions: CHEST PAIN, Uncertain Cause Referrals: Rusty Craft MD [STAFF PHYSICIAN] - 3-5 Days
[2018-11-09 18:39] VITALS: BP 91/66; PULSE 74; RESP 16; O2SAT 99
== END 2018-11-09 18:39 | disposition home or self-care (01) ==
PROVIDERS: Emergency Provider Emergency Medicine
DX: R07.9 Chest pain, unspecified (principal); Z88.0 Allergy status to penicillin; Z86.718 Personal history of other venous thrombosis and embolism; Z85.41 Personal history of malignant neoplasm of cervix uteri
CPT/HCPCS: 71045; 80048; 84484; 85025; 85379; 93005; 99285

== ENCOUNTER 2019-03-04 10:29 | Emergency (ER) | payer SELFPAY ==
[2019-03-04 10:30] VITALS: BP 133/85; PULSE 83; RESP 18; TEMP 36.6; O2SAT 99; BMI 34.5
--- NOTE | 2019-03-04 10:54 | EKG12_ITS ---
Test Reason : VOMITING Blood Pressure : / mmHG Vent. Rate : 060 BPM Atrial Rate : 060 BPM P-R Int : 132 ms QRS Dur : 084 ms QT Int : 410 ms P-R-T Axes : 032 020 019 degrees QTc Int : 410 ms Normal sinus rhythm with sinus arrhythmia Normal ECG Confirmed by AZAM ARIZA, GARCIA ([id number]), primer expeditor and drier CARLITO JOE ([id number]) on 03/08/2019 11:34:42 AM Referred By: CARLY Confirmed By:GARCIA NASCIMENTO MD
--- NOTE | 2019-03-04 10:57 | ED.VIS.GEN ---
History of Present Illness Chief Complaint: Nausea/Vomiting/Diarrhea Informant: Patient Onset: Days Context: Gradual Onset Narrative: Patient is a 38-year-old female with history of diabetes mellitus as well as cervical cancer s/p surgical resection with complication involving bowel perforation and subsequent colostomy and ileostomy (both of those have been reversed since) presenting with concern of flulike symptoms. Patient states everyone at work has had similar symptoms. Started on Friday, 3 days ago she developed body aches and diarrhea. On Friday and Friday she continued to have chills and then cough productive of thick green sputum. Patient been taking Mucinex for her symptoms. Last night into today she has had 2 episodes of vomiting. She states her vomit has been green. She is not had further diarrhea but is continued to pass gas. She has abdominal pain only when coughing. Today she also developed an area of pain in her right chest wall whenever she coughs. She states the pain resolves when she is not coughing. She is a hard time describing the pain. She denies any associated fever. She does have some increased urinary frequency but that has been ongoing for the past few weeks. Patient recently had a CT scan of her abdomen and pelvis at [facility] about 2 weeks ago which showed fluid in her abdomen. She is currently under evaluation for return of her cancer. She denies any history of small bowel obstruction. She denies any other complaints at this time. Past Medical History - Allergies and Home Meds Allergies/Adverse Reactions: Allergies Penicillins Adverse Reaction (Verified 03/04/19 10:32) Nausea/Vom/Diarrhea Primary Care Physician: Care Physician,No Primary [Primary Care Provider] - Past Medical History: - - Diabetes mellitus, history of cervical cancer, history of postoperative PE, history of bowel rupture Surgical History: - - Colostomy and ileostomy, cancer removal, hysterectomy and oophorectomy, Jackson filter placement Smoking Status: Current every day smoker Review of Systems General: Reports: Chills, Malaise. Denies: Fever, Sweats Eyes: Denies: Visual changes - bilaterally, Diplopia ENT: Reports: Bilateral ear pain. Denies: Rhinorrhea, Sore throat Cardiovascular: Reports: Chest pain. Denies: Palpitations Respiratory: Reports: Cough, Sputum. Denies: Dyspnea, Dyspnea on exertion Gastrointestinal: Reports: Abdominal pain - Diffuse, with coughing, Nausea, Vomiting, Diarrhea. Denies: Melena, Hematochezia Genitourinary: Reports: Frequency. Denies: Dysuria, Hematuria Musculoskeletal: Denies: Back pain, Extremity Pain Skin: Denies: Rash, Wounds Neurological: Denies: Headache, Weakness, Numbness Physical Exam Vital Signs/Narrative: Vital Signs Temp Pulse Resp BP Pulse Ox 03/04/19 10:30 97.9 F 83 18 133/85 H 99 Inital Vital Signs reviewed: Yes General: Well nourished, Well developed, No Acute Distress Head: Normocephalic, Atraumatic Eyes: Perrl, EOMI ENT: Moist mucous membranes, No rhinorrhea, TM's clear - Increased pressure, more pronounced in the right TM, Nasal congestion, - - Normal oropharynx Neck: Supple, Nontender Cardiovascular: Regular rate, Regular rhythm, No murmurs Respiratory: No distress, CTA bilaterally, Chest nontender Abdomen: Soft, Nontender, Nondistended, Normal bowel sounds. Negative for: Guarding, Rebound tenderness Back: Nontender, Normal Inspection Extremities: Nontender, No edema Skin: Normal color, No rash Neurological: Alert, Oriented x3, Cranial nerves II-XII grossly intact, Normal Strength, Normal Sensation Psychological: Normal affect, Normal Mood Diagnostic/Tx/Re-eval Chest X-Ray - ED: 2 View, Read by ED Physician, Read by Radiologist, Left Infiltrate Clinical Impression(s) from Imaging Studies Chest X-Ray 03/04/19 12:07 IMPRESSION: Left costophrenic angle density most likely represents atelectasis and effusion. Underlying pneumonia should be excluded clinically. Electronically Signed: Sergey Zimmerman, at 13:19 EST Tel , Service support , Laboratory Data 03/04/19 03/04/19 03/04/19 11:35 11:35 12:20 WBC 5.0 RBC 4.38 Hgb 13.2 Hct 39.8 MCV 90.9 MCH 30.1 MCHC 33.2 RDW Std Deviation 40.4 RDW Coeff of Jennifer 12.1 Plt Count 259 MPV 9.0 Immature Gran % (Auto) 0.400 Neut % (Auto) 62.9 Lymph % (Auto) 28.9 [place] % (Auto) 6.4 Eos % (Auto) 1.0 Baso % (Auto) 0.4 Absolute Neuts (auto) 3.1 Absolute Lymphs (auto) 1.44 Nucleated RBC % 0 Sodium 142 Potassium 3.8 Chloride 107 Carbon Dioxide 30.0 Anion Gap 5 BUN 11 Creatinine 0.68 Estim Creat Clear Calc 91.88 Est GFR (MDRD) Af Amer 124 Est GFR (MDRD) Non-Af 102 BUN/Creatinine Ratio 16.2 Glucose 129 H Calcium 8.7 Total Bilirubin 0.20 AST 8 L ALT 15 Alkaline Phosphatase 56 Troponin I < 0.015 Total Protein 7.2 Albumin 3.5 Globulin 3.7 Albumin/Globulin Ratio 0.9 Lipase 74 Urine Color Yellow Urine Clarity Clear Urine pH 6.0 Ur Specific [place] 1.020 Urine Protein Negative Urine Glucose (UA) Normal Urine Ketones Negative Urine Occult Blood Negative Urine Nitrite Positive H Urine Bilirubin Negative Urine Urobilinogen Normal Ur Leukocyte Esterase 100 H Urine RBC 0 SEEN Urine WBC 5-10 SEEN Ur Squamous Epith Cells 0 SEEN Urine Bacteria 2+ Urine Mucus 0 SEEN - Rhythm Strip Rhythm Strip: Sinus Rhythm Rate: 60 Ectopy: None - EKG Initial EKG Interpretation: Sinus Rhythm, - - Sinus rhythm at a rate of [address] segments Normal axis No change from the prior EKG on 11/09/2017 - Medical Decision Making Patient was evaluated for cough, fever and nausea and vomiting. She is hemodynamically stable. She was treated with IV fluids and Zofran. On reevaluation she is improved. CBC and CMP lipase are unremarkable. Chest x-ray shows a possible left lower lobe infiltrate. This clinically matches patient's presentation so should be treated with azithromycin for her symptoms. Patient is not have any urinary symptoms but she did have nitrates in her urine. Urine culture sent but she is not treated for the UTI at this time. Patient's abdomen is soft. She is been passing gas and I do not suspect a small bowel obstruction. I do not think repeat imaging of her abdomen is indicated at this time. She had a CT of her abdomen and pelvis 2 weeks ago at [facility] per the patient. Patient is counseled on signs and symptoms requiring return to the emergency room. Patient verbalizes agreement and understand this plan. Patient discharged home in stable and improved condition. ED Disposition - Plan for ED Patient: Disposition: Home or Assisted Living Diagnosis: Pneumonia, Nausea and vomiting Instructions: DIET, Vomiting or Diarrhea [6yr-Adult], PNEUMONIA (Adult) Prescriptions: Azithromycin [Zithromax Z-Kevin] 250 mg PO UD #1 box Prescription Printed Ondansetron [Zofran Odt] 4 mg PO Q8H PRN PRN #10 tab PRN Reason: Nausea Prescription Printed Referrals: Care Physician,No Primary [Primary Care Provider] - Additional Instructions: Take antibiotics as prescribed. You have been given a coupon for discounted rate at [facility]. Return the emergency room with any worsening symptoms. Drink plenty of fluids to prevent dehydration. Make sure you follow-up with your primary care doctor.
[2019-03-04 11:44] LABS: Absolute Lymphocyte Count 1.44 X10^3/uL (0.83-4.51); Absolute Neutrophil Count 3.1 X10^3/uL (2.0-7.7); Basophil# 0.02 X10^3/uL; Basophil% 0.4 % (0-1); Eosinophil# 0.05 X10^3/uL; Hematocrit 39.8 % (37-47); Hemoglobin 13.2 g/dL (12.0-15.0); Lymphocyte # 1.44 X10^3/ul (4.0); Lymphocyte % 28.9 % (19-41); Mean Corp Hgb Conc 33.2 g/dL (32-36); Mean Corpuscular Hgb 30.1 pg (27.0-32.0); Mean Corpuscular Volume 90.9 fL (81-99); Monocyte# 0.32 X10^3/uL; Monocyte% 6.4 % (0-10); NRBC Flagged by Analyzer 0 % (0-5); Neutrophil # 3.13 X10^3/uL (2.7-7.7); Neutrophil % 62.9 % (47-70); Platelet Count 259 K/mm3 (150-450); RBC Distribution Width CV 12.1 % (11.6-14.6); RBC Distribution Width SD 40.4 fl (35.1-43.9); Red Blood Count 4.38 M/mm3 (4.2-5.4)
[2019-03-04] MEDS: 0.9% Normal Saline 1,000 ML 1000 ML IV (11:49)
[2019-03-04] MEDS: Ondansetron 4 MG/2 ML Vial IV (11:49)
--- NOTE | 2019-03-04 12:07 | RAD_ITS ---
STUDY: X-RAY CHEST REASON FOR EXAM: Female, 38 years old. Cough TECHNIQUE: Cough COMPARISON: None. FINDINGS: Cardiac silhouette unremarkable. Pulmonary vascularity unremarkable. Aorta unremarkable. No focal airspace opacities. Left costophrenic angle density most likely represents atelectasis and effusion. Upper abdomen unremarkable. Osseous structures intact. No pneumothorax. RAD/Chest PA and Lateral IMPRESSION: Left costophrenic angle density most likely represents atelectasis and effusion. Underlying pneumonia should be excluded clinically. Electronically Signed: Sergey Zimmerman, at 13:19 EST Tel , Service support ,
[2019-03-04 12:14] LABS: ALB/GLOB Ratio 0.9 RATIO (0.9-2.4); AST(SGOT) 8 U/L (15-37); Alanine Aminotransfer ALT/SGPT 15 U/L (13-56); Albumin, Serum 3.5 g/dL (3.2-5.0); Alkaline Phosphatase 56 U/L (45-117); Anion Gap 5 (5-15); BUN 11 mg/dL (7-18); BUN/Creat Ratio 16.2 RATIO (10-20); Calcium,Total 8.7 mg/dL (8.5-10.1); Chloride 107 mmol/L (98-107); Creatinine, Serum 0.68 mg/dL (0.55-1.02); EST Glomerular Filtration Rate 102 mL/min (>60); Est Glom Filt Rate - Afr Amer 124 mL/min (>60); Estimated Creatinine Clearance 91.88 ml/min; Globulin 3.7 g/dL (2.2-4.2); Glucose 129 mg/dL (74-106); Lipase 74 U/L (73-393); Potassium 3.8 mmol/L (3.5-5.1); Protein, Total 7.2 g/dL (6.4-8.2); Sodium Level 142 mmol/L (136-145)
[2019-03-04 12:26] LABS: Mucous, Urine 0 SEEN /hpf (<or=2+); Red Blood Cells-Urine 0 SEEN /hpf (0-5); Squamous Epithelial Cells - UA 0 SEEN /hpf (5-10)
[2019-03-04 12:29] VITALS: BP 98/52; PULSE 51; RESP 16; TEMP 36.6; O2SAT 100
[2019-03-04 12:43] LABS: Color, Urine Yellow (Yellow); Glucose, Dipstick Normal (Normal); Ketone-Dipstick Negative (Negative); Leukocyte Esterase-Dipstick 100 /ul (Negative); Nitrite-Dipstick Positive (Negative); Occult Blood-Urine Negative /ul (Negative); Protein-Dipstick Negative (Negative); Urine Bilirubin Dipstick Negative (Negative); Urine Clarity Clear (Clear); Urine Urobilinogen Normal (Normal)
[2019-03-04 12:51] LABS: Bacteria 2+ /hpf (None Seen); White Blood Cells 5-10 SEEN /hpf (0-5)
[2019-03-04 13:57] VITALS: BP 101/74; PULSE 57; RESP 16; O2SAT 99
== END 2019-03-04 13:58 | disposition home or self-care (01) ==
PROVIDERS: Emergency Provider Emergency Medicine
DX: J18.9 Pneumonia, unspecified organism (principal); R11.2 Nausea with vomiting, unspecified; E11.9 Type 2 diabetes mellitus without complications; F17.200 Nicotine dependence, unspecified, uncomplicated; Z88.0 Allergy status to penicillin; Z90.710 Acquired absence of both cervix and uterus; Z93.3 Colostomy status
CPT/HCPCS: 71046; 80053; 81001; 83690; 84484; 85025; 87086; 87088; 87186; 93005; 96361; 96374; 99285; J7030; A4216; J2405

== ENCOUNTER 2019-04-23 20:05 | Emergency (ER) | payer SELFPAY ==
[2019-04-23 20:07] VITALS: BP 145/92; PULSE 78; RESP 16; TEMP 36.9; O2SAT 98; BMI 36.3
--- NOTE | 2019-04-23 20:12 | ED.DCSUM_ITS ---
History of Present Illness Chief Complaint: Dental Informant: Patient Onset: Weeks Context: Sudden Onset Timing: Continuous Quality: Lower right teeth Location: Right lower bicuspid then molar Current Severity: Mild Maximum Severity: Severe Worsened by: Cold, air Relieved by: NSAIDs - Initially relief with ibuprofen, Topicals - Initially relief with Orajel Associated Symptoms: Hot, Cold Narrative: Patient is a 38-year-old woman who presents with dental pain that started 2 weeks ago. The pain has been continuous. She initially reported relief with ibuprofen and Orajel. She states now the pain is not even diminished. She reports intolerance to cold and air. She denies inability to open or close her mouth completely. She denies change in voice or drooling. She denies a traumatic fever, murmur, SBE or IV drug use. She denies facial swelling or redness. She denies auditory symptoms. Prior similar symptoms: No Recent Illness/Hospitalization: No - Past Medical History (1) No significant past medical history Status: Acute Past Medical History - Allergies and Home Meds Allergies/Adverse Reactions: Allergies Penicillins Adverse Reaction (Verified 04/23/19 20:06) Nausea/Vom/Diarrhea Primary Care Physician: NOT,DEFINED [NON-STAFF] - Prior records reviewed: Yes Past Medical History: None Surgical History: noncontributory, - - Colostomy and ileostomy, cancer removal, hysterectomy and oophorectomy, Jackson filter placement Lives: Alone Smoking Status: Current every day smoker Alcohol: None Drugs: None Review of Systems General: Denies: Chills, Fever, Malaise, Subjective, Sweats, Weight loss Eyes: Denies: Visual changes - bilaterally, Blurred Vision - bilaterally ENT: Reports: - - No trismus. No change in voice.. Denies: Bilateral ear pain, Rhinorrhea, Sore throat Cardiovascular: Denies: Chest pain, Palpitations Respiratory: Denies: Dyspnea, Cough, Sputum, Dyspnea on exertion Skin: Denies: Rash Hematologic: Denies: Easy bruising, Easy bleeding Physical Exam Vital Signs/Narrative: Vital Signs Temp Pulse Resp BP Pulse Ox 04/23/19 20:07 98.4 F 78 16 145/92 H 98 Inital Vital Signs reviewed: Yes General: Well nourished, Well developed, Obese Head: Normocephalic, Atraumatic. Negative for: Trauma, Tenderness ENT: Moist mucous membranes, No nasal trauma, No rhinorrhea, TM's clear. Negative for: Nasal congestion, Sinus tenderness Mouth/Throat: Normal inspection lips/gums, Normal oral mucosa, Normal posterior oropharynx, No sublingual edema, Normal Stensen's duct, Dental abscess, Tenderness on tooth percussion, Widespread dental decay. Negative for: Apthous ulcer, Dental trauma, Trismus Neck: Supple, No lymphadenopathy, Nontender, No JVD. Negative for: Anterior submandibular lymphadenopathy, Posterior submandibular lymphadenopathy, Anterior submental lymphadenopathy, Posterior submental lymphadenopathy, Soft tissue swelling, Submandibular soft tissue swelling, Submental soft tissue swelling, Parotid tenderness Cardiovascular: Regular rate, Regular rhythm, No murmurs, Normal S1, Normal S2 Respiratory: No distress, CTA bilaterally, Chest nontender Abdomen: Soft, Nontender, Nondistended, Normal bowel sounds Back: Nontender, Normal Inspection Extremities: Nontender, No edema Skin: Normal color, No rash. Negative for: Cyanosis, Diaphoresis Neurological: Alert, Oriented x3, Cranial nerves II-XII grossly intact, Normal Strength, Normal Sensation Psychological: Normal affect Diagnostic/Tx/Re-eval - Medical Decision Making Dental caries with exposure of pulp numerous teeth. There is evidence of. Periapical abscess. She has significant reaction to penicillin. She was treated with clindamycin and opiate analgesia. ED Disposition - Plan for ED Patient: Disposition: Home or Assisted Living Diagnosis: Periapical abscess, Dental caries extending into pulp Instructions: Dental Abscess Prescriptions: Clindamycin HCl [Cleocin] 300 mg PO Q6H #28 cap Transmission Status: Pending to [facility] Hydrocodone Bitart/Apap 5-325 [Amelia 5MG-325MG] 1 tablet PO Q6H PRN PRN 3 Days #10 tablet PRN Reason: Pain Transmission Status: Sent to [facility] Referrals: NOT,DEFINED [NON-STAFF] - Dentist,Your [STAFF PHYSICIAN] - 5-7 Days
[2019-04-23] MEDS: Clindamycin HCl 150 MG Capsule 300 MG PO (20:22)
[2019-04-23] MEDS: HYDROcodone Bitartrate/Apap 5/325 Tablet PO (20:22)
[2019-04-23] MEDS: Naproxen 250 MG Tablet 500 MG PO (20:23)
[2019-04-23 20:24] VITALS: PULSE 88; RESP 16; O2SAT 100
== END 2019-04-23 20:26 | disposition home or self-care (01) ==
PROVIDERS: Emergency Provider Emergency Medicine
DX: K04.7 Periapical abscess without sinus (principal); K02.9 Dental caries, unspecified; F17.200 Nicotine dependence, unspecified, uncomplicated; Z88.0 Allergy status to penicillin; Z90.710 Acquired absence of both cervix and uterus
CPT/HCPCS: 99283

== ENCOUNTER 2019-07-22 16:23 | Emergency (ER) | payer SELFPAY ==
[2019-07-22 16:23] VITALS: BP 129/74; PULSE 76; RESP 15; TEMP 36.6; O2SAT 99; BMI 36.3
--- NOTE | 2019-07-22 16:46 | ED.VISSUMM ---
- ER Visit Summary Date of Service: 07/22/19 Chief Complaint: Dental pain History of Present Illness: The patient is a 38 F who has an appointment at the [facility] in 5 days. She reports that she has pain in her right mandibular first premolar that began yesterday. Is a sharp pain is 10 on 10 severity. Is worsened by eating. It is relieved by a hot washcloth. She does complain of hot and cold sensitivity. She denies any other complaints. Physical Examination: Vitals: Stable. Afebrile. Mouth: No trismus. No edema of the floor of the mouth. Pain with percussion of right mandibular first premolar. There are obvious caries here. There is no focal abscess. General: A&O x 3. NAD. Cardiovascular exam: Regular rate and rhythm, no murmur, rub or gallop. Respiratory exam: Clear to auscultation bilaterally. No wheezes or stridor. Abdominal exam: Soft, nontender, nondistended, normal bowel sounds. No peritoneal signs. Extremity: No clubbing, cyanosis, or edema. Emergency Department Course and Treatment: An [facility] report was obtained which shows she only had one prescription for opiates in the past year. She is given a dose of clindamycin, naproxen, [place] here. Treatment Plan: Patient will be discharged with clindamycin and [place]. Instructed to follow-up with her dentist as previously scheduled. Return to the emergency department for any worsening symptoms. Disposition: To home in improved and stable condition. Impression: 1. Dental pain. This note was generated with S[employer] dictation software. It may contain incorrect words, spelling, and punctuation that were not noted in review of the chart prior to signing ED Disposition - Plan for ED Patient: Disposition: Home or Assisted Living Instructions: ED Tooth Pain Prescriptions: Clindamycin HCl [Cleocin] 300 mg PO Q6H #40 cap Hydrocodone Bitart/Apap 5-325 [[place] 5MG-325MG] 1 tab PO Q4H PRN PRN 2 Days #10 tab PRN Reason: Pain Prescription Printed Referrals: Layla Gramajo [NON-STAFF] - Keep Abdirashid appointment
[2019-07-22] MEDS: Clindamycin HCl 150 MG Capsule 300 MG PO (16:52)
[2019-07-22] MEDS: HYDROcodone Bitartrate/Apap 5/325 Tablet PO (16:52)
[2019-07-22] MEDS: Naproxen 250 MG Tablet 500 MG PO (16:52)
== END 2019-07-22 17:10 | disposition home or self-care (01) ==
LOC: ED 17:02
PROVIDERS: Emergency Provider Emergency Medicine
DX: K08.89 Other specified disorders of teeth and supporting structures (principal)
CPT/HCPCS: 99283

== ENCOUNTER 2019-11-03 18:55 | Emergency (ER) | payer SELFPAY ==
[2019-11-03 18:57] VITALS: BP 140/80; PULSE 103; RESP 17; TEMP 36.7; O2SAT 97; BMI 36.6
--- NOTE | 2019-11-03 19:38 | RAD_ITS ---
STUDY: X-RAY CHEST REASON FOR EXAM: Female, 39 years old. BODY ACHES, NAUSEA, DIARRHEA, SORE THROAT, LOSS OF SMELL, COUGH TECHNIQUE: 1 view COMPARISON: Prior chest radiograph of 03/04/2019 FINDINGS: Stable scarring at the left lung base in the costophrenic angle and stable pleural pericardial scarring on the left unchanged from prior exam. Otherwise, the lung lance are expanded and clear with no new infiltrates. Normal size heart. Normal mediastinum and luis enrique. Normal visualized pulmonary arteries. Normal visualized aortic arch and descending thoracic aorta. Normal visualized thoracic spine. Normal visualized ribs, clavicles, and shoulders. There is no demonstrated abnormality of the visualized soft tissue structures of the upper abdomen. RAD/Chest 1 View (Portable) IMPRESSION: Stable scarring at the left lung base and along the left heart border with no acute cardiopulmonary findings or changes. Negative for new consolidation, focal atelectasis, cardiomegaly or pleural effusion. Electronically Signed: Francisca Mauricio MD at 19:53 EDT , Service support ,
--- NOTE | 2019-11-03 19:50 | ED.DCSUM_ITS ---
- ER Visit Summary Date of Service: 11/03/19 Chief Complaint: Cough, body aches History of Present Illness: The patient is a 39 F who presents with cough and body aches that began yesterday. Patient states these have gradually gotten worse today. Patient states she feels aching from her head down to her toes. Patient states this is worse at night. Patient states she is coughing up some green sputum. Patient admits to some intermittent chest pain. Patient denies any fevers or chills. Patient also admits to some nausea, vomiting, and diarrhea. Patient also admits to an occipital headache. Patient also states she lost her sense of smell. Patient denies any loss of taste. Physical Examination: Vital signs are stable. Patient is afebrile. Patient is in no acute distress. Tympanic membranes are clear bilaterally. Oral mucosa is pink and moist. Oropharynx is clear. Neck is supple. Trachea is midline. There is some mild anterior cervical adenopathy on the left. There is no JVD noted. Heart was regular rate and rhythm. Lungs are clear and equal bilaterally. Abdomen is soft. Bowel sounds are normal. There is no tenderness. There is no rebound or guarding noted. Skin is warm dry. Cranial nerves II through XII are intact. There are no focal motor or sensory deficits noted. Extremities are intact. There is no calf tenderness or edema. Test Results: CBC and basic metabolic profile were obtained and were essentially within normal limits. Glucose was elevated at 297. COVID swab was ordered and is pending. Rapid strep was negative. Portable chest x-ray was obtained and showed chronic changes. There is no acute cardiopulmonary process. This was interpreted by the radiologist and reviewed by myself. Emergency Department Course and Treatment: Patient was feeling better on re evaluation. Patient states that someone who tested positive for COVID recently came to where she works and several of her coworkers have developed some illness. Patient is unsure if they were formally diagnosed with COVID or not. Patient was instructed to quarantine herself until her COVID swab comes back. Patient was instructed to take Tylenol or ibuprofen as needed for any pain or fevers. Patient was instructed to follow-up with the primary care physician in 5 to 7 days. Patient understood and was agreeable with the plan. All questions were answered. Disposition: Discharge home Impression: Viral upper respiratory infection This note was generated with [employer] dictation software. It may contain incorrect words, spelling, and punctuation that were not noted in review of the chart prior to signing ED Disposition - Plan for ED Patient: Disposition: Home or Assisted Living Diagnosis: Viral upper respiratory infection Instructions: ED URI Viral Referrals: Davis Banuelos DO [NON CLINICAL AFFILIATE] - 3-5 Days
[2019-11-03 19:55] VITALS: RESP 18
[2019-11-03 20:08] LABS: Absolute Neutrophil Count 3.8 X10^3/uL (2.0-7.7); Basophil# 0.03 X10^3/uL; Basophil% 0.5 % (0-1); Eosinophil# 0.09 X10^3/uL; Eosinophils% 1.6 % (0-5); Hematocrit 39.5 % (37-47); Hemoglobin 13.2 g/dL (12.0-15.0); Lymphocyte % 24.5 % (19-41); Mean Corp Hgb Conc 33.4 g/dL (32-36); Mean Corpuscular Hgb 30.1 pg (27.0-32.0); Mean Platelet Vol. 9.5 fl (6.2-12.0); Monocyte# 0.37 X10^3/uL; Monocyte% 6.5 % (0-10); NRBC Flagged by Analyzer 0 % (0-5); Neutrophil % 66.5 % (47-70); Platelet Count 252 K/mm3 (150-450); RBC Distribution Width CV 12.2 % (11.6-14.6); RBC Distribution Width SD 39.9 fl (35.1-43.9); Red Blood Count 4.39 M/mm3 (4.2-5.4); White Blood Count 5.7 K/mm3 (4.4-11.0)
[2019-11-03 20:24] LABS: ALB/GLOB Ratio 0.9 RATIO (0.9-2.4); AST(SGOT) 12 U/L (15-37); Alanine Aminotransfer ALT/SGPT 20 U/L (13-56); Albumin, Serum 3.2 g/dL (3.2-5.0); Alkaline Phosphatase 63 U/L (45-117); Anion Gap 5 (5-15); BUN 8 mg/dL (7-18); BUN/Creat Ratio 10.5 RATIO (10-20); Calcium,Total 8.5 mg/dL (8.5-10.1); Chloride 104 mmol/L (98-107); Creatinine, Serum 0.76 mg/dL (0.55-1.02); EST Glomerular Filtration Rate 89 mL/min (>60); Est Glom Filt Rate - Afr Amer 108 mL/min (>60); Globulin 3.7 g/dL (2.2-4.2); Glucose 297 mg/dL (74-106); Potassium 3.8 mmol/L (3.5-5.1); Protein, Total 6.9 g/dL (6.4-8.2); Sodium Level 139 mmol/L (136-145)
[2019-11-03 21:06] VITALS: RESP 18
[2019-11-03 22:48] VITALS: BP 106/69; PULSE 133; RESP 20; O2SAT 95
== END 2019-11-03 22:49 | disposition home or self-care (01) ==
PROVIDERS: Emergency Provider Emergency Medicine
DX: J06.9 Acute upper respiratory infection, unspecified (principal)
CPT/HCPCS: 71045; 80053; 85025; 87077; 87635; 87880; 94799; 99283; A4216; U0003

== ENCOUNTER 2020-03-25 09:45 | Emergency (ER) | payer OTHER, SELFPAY ==
[2020-03-25 09:46] VITALS: BP 133/78; PULSE 89; RESP 17; TEMP 36.6; O2SAT 100; BMI 35.6
[2020-03-25 10:06] LABS: Bedside Glucose 352 mg/dL (70-110)
--- NOTE | 2020-03-25 10:15 | ED.DCSUM_ITS ---
History of Present Illness Chief Complaint: Numb/Ting Informant: Patient Onset: Yesterday Current Severity: Mild Maximum Severity: Mild Narrative: Patient complains of numbness and tingling sensation in her right hand that she noted during the night last night. She states she will get similar symptoms with high blood sugars. She is a diabetic but states she stopped taking her Metformin because it made her urinate too much. She has noted increased thirst and urination recently. She does not check her blood sugars. - Past Medical History (1) DVT (deep venous thrombosis) Status: Chronic (2) Diabetes Status: Chronic (3) Cervical cancer Status: Chronic Past Medical History - Allergies and Home Meds Allergies/Adverse Reactions: Allergies Penicillins Adverse Reaction (Verified 03/25/20 09:46) Nausea/Vom/Diarrhea Primary Care Physician: Care Physician,No Primary [Primary Care Provider] - Surgical History: noncontributory, - - Colostomy and ileostomy, cancer removal, hysterectomy and oophorectomy, Jackson filter placement Smoking Status: Current every day smoker Review of Systems General: Denies: Chills, Fever Eyes: Denies: Visual changes - bilaterally ENT: Denies: Bilateral ear pain Cardiovascular: Denies: Chest pain Respiratory: Denies: Dyspnea, Cough Gastrointestinal: Denies: Abdominal pain, Vomiting, Diarrhea Musculoskeletal: Reports: Extremity Pain - Dry, cracked feet. Sore. Skin: Reports: Wounds Neurological: Denies: Headache Endocrine: Reports: Polyuria, Polydipsia Physical Exam Vital Signs/Narrative: Vital Signs Temp Pulse Resp BP Pulse Ox 03/25/20 09:46 97.9 F 89 17 133/78 H 100 Inital Vital Signs reviewed: Yes General: Well nourished, Well developed Head: Normocephalic ENT: Moist mucous membranes Neck: Supple Cardiovascular: Regular rate, Regular rhythm Respiratory: No distress, CTA bilaterally Abdomen: Soft, Nontender Extremities: Nontender, - - Heels bilaterally have dry cracked skin. No sign of secondary infection. Skin: Normal color Neurological: Alert, Oriented x3, Normal Strength, - - Patient reports decrease sensation to light touch in the fingers of the right hand. Normal strength. Normal cap refill. Patient does get increased tingling with hyperextension of her right wrist. Psychological: Normal affect Diagnostic/Tx/Re-eval Laboratory Results 03/25/20 03/25/20 03/25/20 09:58 10:38 10:38 WBC 5.6 RBC 4.87 Hgb 14.6 Hct 44.3 MCV 91.0 MCH 30.0 MCHC 33.0 RDW Std Deviation 41.8 RDW Coeff of Jennifer 12.7 Plt Count 255 MPV 9.1 Immature Gran % (Auto) 0.700 Neut % (Auto) 70.1 H Lymph % (Auto) 21.0 Walker % (Auto) 6.2 Eos % (Auto) 1.6 Baso % (Auto) 0.4 Absolute Neuts (auto) 4.0 Absolute Lymphs (auto) 1.18 Nucleated RBC % 0 Sodium 136 Potassium 3.5 Chloride 102 Carbon Dioxide 30.0 Anion Gap 4 L BUN 8 Creatinine 0.68 Estim Creat Clear Calc 90.97 Est GFR (MDRD) Af Amer 122 Est GFR (MDRD) Non-Af 101 BUN/Creatinine Ratio 11.7 Glucose 304 H Calcium 8.2 L Urine Color Urine Clarity Urine pH Ur Specific [place] Urine Protein Urine Glucose (UA) Urine Ketones Urine Occult Blood Urine Nitrite Urine Bilirubin Urine Urobilinogen Ur Leukocyte Esterase Urine RBC Urine WBC Ur Squamous Epith Cells Urine Bacteria Urine Mucus Acetone Level POC Glucose 352 H 03/25/20 03/25/20 10:38 10:38 WBC RBC Hgb Hct MCV MCH MCHC RDW Std Deviation RDW Coeff of Jennifer Plt Count MPV Immature Gran % (Auto) Neut % (Auto) Lymph % (Auto) Walker % (Auto) Eos % (Auto) Baso % (Auto) Absolute Neuts (auto) Absolute Lymphs (auto) Nucleated RBC % Sodium Potassium Chloride Carbon Dioxide Anion Gap BUN Creatinine Estim Creat Clear Calc Est GFR (MDRD) Af Amer Est GFR (MDRD) Non-Af BUN/Creatinine Ratio Glucose Calcium Urine Color Yellow Urine Clarity Clear Urine pH 6.0 Ur Specific [place] 1.020 Urine Protein 15 H Urine Glucose (UA) 1000 H Urine Ketones Negative Urine Occult Blood 10 H Urine Nitrite Negative Urine Bilirubin Negative Urine Urobilinogen Normal Ur Leukocyte Esterase 100 H Urine RBC 0 SEEN Urine WBC 25-50 SEEN Ur Squamous Epith Cells 0-5 SEEN Urine Bacteria 1+ Urine Mucus 0 SEEN Acetone Level NEGATIVE POC Glucose - Medical Decision Making Patient was given a liter IV fluid. Blood sugar is in the low 300 range. She states that when her blood sugar is at this level she will tend to get paresthesias in her right hand as she does currently. I do have concern that she may have some degree of carpal tunnel as well as she has been doing some repetitive cleaning motion. She will be given a Velcro wrist splint. Patient's blood work and urine are reviewed. She does have evidence of UTI will be treated with 3 days of Bactrim. She will be referred to local PCP to establish care as well as to orthopedics if her hand continues to give her difficulties. She agrees with the plan. ED Disposition - Plan for ED Patient: Disposition: Home or Assisted Living Diagnosis: UTI (urinary tract infection), Hyperglycemia, Paresthesias in right hand Instructions: ED Neuropathy, Peripheral, ED Paraesthesias, ED Carpal Tunnel Syndrome, ED Diabetic Hyperglycemia Prescriptions: Smz/Tmp Ds [Bactrim Ds] 1 tab PO BID #6 tab Transmission Status: Pending to [id number] Referrals: Yosi Altman MD [NON-STAFF] - Lam Frazier MD [STAFF PHYSICIAN] -
[2020-03-25 10:48] LABS: Mucous, Urine 0 SEEN /hpf (<or=2+); Red Blood Cells-Urine 0 SEEN /hpf (0-5)
[2020-03-25 10:52] LABS: Color, Urine Yellow (Yellow); Glucose, Dipstick 1000 mg/dl (Normal); Ketone-Dipstick Negative (Negative); Leukocyte Esterase-Dipstick 100 /ul (Negative); Nitrite-Dipstick Negative (Negative); Occult Blood-Urine 10 /ul (Negative); Protein-Dipstick 15 mg/dl (Negative); Urine Bilirubin Dipstick Negative (Negative); Urine Clarity Clear (Clear); Urine Urobilinogen Normal (Normal)
[2020-03-25 10:54] LABS: Absolute Lymphocyte Count 1.18 X10^3/uL (0.83-4.51); Basophil# 0.02 X10^3/uL; Basophil% 0.4 % (0-1); Eosinophil# 0.09 X10^3/uL; Eosinophils% 1.6 % (0-5); Hematocrit 44.3 % (37-47); Hemoglobin 14.6 g/dL (12.0-15.0); Lymphocyte # 1.18 X10^3/ul (4.0); Mean Platelet Vol. 9.1 fl (6.2-12.0); Monocyte# 0.35 X10^3/uL; Monocyte% 6.2 % (0-10); NRBC Flagged by Analyzer 0 % (0-5); Neutrophil # 3.95 X10^3/uL (2.7-7.7); Neutrophil % 70.1 % (47-70); Platelet Count 255 K/mm3 (150-450); RBC Distribution Width CV 12.7 % (11.6-14.6); RBC Distribution Width SD 41.8 fl (35.1-43.9); Red Blood Count 4.87 M/mm3 (4.2-5.4); White Blood Count 5.6 K/mm3 (4.4-11.0)
[2020-03-25 11:03] LABS: Anion Gap 4 (5-15); BUN 8 mg/dL (7-18); BUN/Creat Ratio 11.7 RATIO (10-20); Calcium,Total 8.2 mg/dL (8.5-10.1); Chloride 102 mmol/L (98-107); Creatinine, Serum 0.68 mg/dL (0.55-1.02); EST Glomerular Filtration Rate 101 mL/min (>60); Est Glom Filt Rate - Afr Amer 122 mL/min (>60); Estimated Creatinine Clearance 90.97 ml/min; Glucose 304 mg/dL (74-106); Potassium 3.5 mmol/L (3.5-5.1); Sodium Level 136 mmol/L (136-145)
[2020-03-25 11:08] LABS: Bacteria 1+ /hpf (None Seen); Squamous Epithelial Cells - UA 0-5 SEEN /hpf (5-10); White Blood Cells 25-50 SEEN /hpf (0-5)
[2020-03-25] MEDS: 0.9% Normal Saline 1,000 ML 1000 ML IV (11:12)
[2020-03-25] MEDS: Smz/Tmp Ds Tablet 1 TABLET PO (11:33)
[2020-03-25 12:13] VITALS: BP 124/80; PULSE 64; RESP 14; O2SAT 99
== END 2020-03-25 12:24 | disposition home or self-care (01) ==
PROVIDERS: Emergency Provider Emergency Medicine
DX: N39.0 Urinary tract infection, site not specified (principal); E11.65 Type 2 diabetes mellitus with hyperglycemia; R20.2 Paresthesia of skin; F17.200 Nicotine dependence, unspecified, uncomplicated; Z93.3 Colostomy status; Z88.0 Allergy status to penicillin; Z85.41 Personal history of malignant neoplasm of cervix uteri; Z86.718 Personal history of other venous thrombosis and embolism; Z90.710 Acquired absence of both cervix and uterus; Z90.721 Acquired absence of ovaries, unilateral
CPT/HCPCS: 80048; 81001; 82009; 82962; 85025; 96360; 99284; J7030; A4216

== ENCOUNTER 2020-06-26 16:17 | Emergency (ER) | payer OTHER, SELFPAY ==
[2020-06-26 16:18] VITALS: BP 117/80; PULSE 98; RESP 16; TEMP 36.7; O2SAT 95; BMI 34.2
--- NOTE | 2020-06-26 16:32 | EKG12_ITS ---
Test Reason : ABDOMINAL PAIN Blood Pressure : / mmHG Vent. Rate : 082 BPM Atrial Rate : 082 BPM P-R Int : 140 ms QRS Dur : 074 ms QT Int : 374 ms P-R-T Axes : 056 024 027 degrees QTc Int : 436 ms Normal sinus rhythm Normal ECG Confirmed by AZAM ARIZA, GARCIA ([id number]), scientific publications editor CARLITO JOE ([id number]) on 06/30/2020 2:28:45 PM Referred By: Confirmed By:GARCIA NASCIMENTO MD
--- NOTE | 2020-06-26 16:33 | ED.DCSUM_ITS ---
History of Present Illness Chief Complaint: Abd Pain Informant: Patient Narrative: 39-year-old female presenting for evaluation. She states that last evening at about 9 PM she developed chills and body aches. She states that she typically does not have a fever when she gets sick. She denies fever last night. She denies change in taste or smell. Overnight she developed some crampy abdominal pain and nausea, vomiting, diarrhea. She states she has been vomiting all day and having diarrhea all day. She states that after vomiting early this morning she had a little bit of tightness in her throat and upper chest but denies shortness of breath, cough, diaphoresis. She has no cardiac history. She states she does have diabetes. Patient does have a history of DVT but is not on anticoagulation now. Patient states she works at [employer] and is tested every 2 weeks for COVID-19. - Past Medical History (1) DVT (deep venous thrombosis) Status: Chronic (2) Diabetes Status: Chronic Past Medical History - Allergies and Home Meds Allergies/Adverse Reactions: Allergies Penicillins Adverse Reaction (Verified 06/26/20 16:22) Nausea/Vom/Diarrhea Primary Care Physician: Care Physician,No Primary [Primary Care Provider] - Prior records reviewed: Yes Surgical History: noncontributory, - - Colostomy and ileostomy, cancer removal, hysterectomy and oophorectomy, [place] filter placement Lives: Spouse/ Significant Other Smoking Status: Current every day smoker Alcohol: None Drugs: None Review of Systems General: Reports: Chills, Malaise. Denies: Fever Eyes: Denies: Visual changes - bilaterally, Diplopia ENT: Denies: Rhinorrhea, Sore throat Cardiovascular: Reports: Chest pain Respiratory: Denies: Dyspnea, Cough, Sputum Gastrointestinal: Reports: Abdominal pain, Nausea, Vomiting, Diarrhea Musculoskeletal: Denies: Myalgias, Arthralgias, Neck pain Skin: Denies: Rash, Abscess Neurological: Denies: Headache, Weakness Psych: Denies: Depression, Anxiety Physical Exam Vital Signs/Narrative: Vital Signs Temp Pulse Resp BP Pulse Ox 06/26/20 16:18 98.1 F 98 16 117/80 95 Inital Vital Signs reviewed: Yes General: Well nourished, No Acute Distress Head: Normocephalic, Atraumatic Eyes: Perrl, EOMI ENT: Moist mucous membranes, No rhinorrhea Cardiovascular: Regular rate, Regular rhythm Respiratory: No distress, CTA bilaterally, Chest nontender Abdomen: Soft, Nondistended, - - Generalized mild tenderness. Abdomen nonperitoneal. Negative Boston sign. Negative McBurney point tenderness. Extremities: Nontender, No edema Skin: Normal color, No rash. Negative for: Cyanosis, Diaphoresis Neurological: Alert, Oriented x3, Cranial nerves II-XII grossly intact Psychological: Normal affect, Normal Mood Diagnostic/Tx/Re-eval Chest X-Ray - ED: Left Infiltrate Clinical Impression(s) from Imaging Studies Chest X-Ray 06/26/20 16:48 IMPRESSION: No acute radiographic abnormalities. Electronically Signed: Lew Piedra MD at 17:07 EDT Tel , Service support , Laboratory Data 06/26/20 06/26/20 06/26/20 16:35 16:35 16:35 WBC 5.0 RBC 4.95 Hgb 14.8 Hct 45.5 MCV 91.9 MCH 29.9 MCHC 32.5 RDW Std Deviation 44.2 H RDW Coeff of Jennifer 13.2 Plt Count 238 MPV 8.8 Immature Gran % (Auto) 0.400 Neut % (Auto) 80.6 H Lymph % (Auto) 13.0 L [place] % (Auto) 4.8 Eos % (Auto) 1.0 Baso % (Auto) 0.2 Absolute Neuts (auto) 4.0 Absolute Lymphs (auto) 0.65 L Nucleated RBC % 0 D-Dimer Quant (PE/DVT) 0.38 Sodium 136 Potassium 3.6 Chloride 103 Carbon Dioxide 28.0 Anion Gap 5 BUN 14 Creatinine 0.68 Estim Creat Clear Calc 90.97 Est GFR (MDRD) Af Amer 123 Est GFR (MDRD) Non-Af 102 BUN/Creatinine Ratio 20.7 H Glucose 200 H Calcium 8.6 Total Bilirubin 0.80 AST 5 L ALT 18 Alkaline Phosphatase 73 Troponin I < 0.015 Total Protein 7.5 Albumin 3.3 Globulin 4.2 Albumin/Globulin Ratio 0.8 L Lipase 55 L Procalcitonin 06/26/20 16:35 WBC RBC Hgb Hct MCV MCH MCHC RDW Std Deviation RDW Coeff of Jennifer Plt Count MPV Immature Gran % (Auto) Neut % (Auto) Lymph % (Auto) [place] % (Auto) Eos % (Auto) Baso % (Auto) Absolute Neuts (auto) Absolute Lymphs (auto) Nucleated RBC % D-Dimer Quant (PE/DVT) Sodium Potassium Chloride Carbon Dioxide Anion Gap BUN Creatinine Estim Creat Clear Calc Est GFR (MDRD) Af Amer Est GFR (MDRD) Non-Af BUN/Creatinine Ratio Glucose Calcium Total Bilirubin AST ALT Alkaline Phosphatase Troponin I Total Protein Albumin Globulin Albumin/Globulin Ratio Lipase Procalcitonin 0.10 H - Medical Decision Making 39-year-old female presenting with nausea, vomiting, diarrhea, chills, myalgias. She tested negative with rapid antigen for COVID-19. Chest x-ray is interpreted by myself shows no acute cardiopulmonary process. The patient had some upper chest/throat pain after vomiting I did perform an EKG which was sinus rhythm at 82 bpm. She has not had a return of that pain since last night. It does not sound cardiac in nature and I do not believe she needs a delta EKG or delta troponin. D-dimer is negative. Lab work is more consistent with viral syndrome. Patient was given Zofran in the ED and feels improved. She will be discharged home with a prescription for Zofran. Patient will be given a rapid PCR and will quarantine at home until she gets the results of this. Patient counseled best testing time is the fourth and fifth day. She states she will call her doctor if she still has symptoms. She is given return precautions. Patient stable discharge at this time. ED Disposition - Plan for ED Patient: Disposition: Home or Assisted Living Instructions: ED Viral Syndrome (Adult) Referrals: Care Physician,No Primary [Primary Care Provider] -
[2020-06-26] MEDS: Ondansetron 4 MG/2 ML Vial IV (16:37)
--- NOTE | 2020-06-26 16:48 | RAD_ITS ---
INDICATION: cough EXAMINATION/TECHNIQUE: X-RAY - XR Chest 1 View COMPARISON: 11/03/2019. FINDINGS: Persistent left basilar scarring. The lungs are otherwise clear. The cardiomediastinal silhouette is unremarkable. No pleural effusion or pneumothorax. No acute osseous abnormalities. RAD/Chest 1 View (Portable) IMPRESSION: No acute radiographic abnormalities. Electronically Signed: Lew Piedra MD at 17:07 EDT Tel , Service support ,
[2020-06-26 16:57] LABS: Absolute Lymphocyte Count 0.65 X10^3/uL (0.83-4.51); Basophil# 0.01 X10^3/uL; Basophil% 0.2 % (0-1); Eosinophil# 0.05 X10^3/uL; Hematocrit 45.5 % (37-47); Hemoglobin 14.8 g/dL (12.0-15.0); Lymphocyte # 0.65 X10^3/ul (4.0); Mean Corp Hgb Conc 32.5 g/dL (32-36); Mean Corpuscular Hgb 29.9 pg (27.0-32.0); Mean Corpuscular Volume 91.9 fL (81-99); Mean Platelet Vol. 8.8 fl (6.2-12.0); Monocyte# 0.24 X10^3/uL; Monocyte% 4.8 % (0-10); NRBC Flagged by Analyzer 0 % (0-5); Neutrophil # 4.03 X10^3/uL (2.7-7.7); Neutrophil % 80.6 % (47-70); Platelet Count 238 K/mm3 (150-450); RBC Distribution Width CV 13.2 % (11.6-14.6); RBC Distribution Width SD 44.2 fl (35.1-43.9); Red Blood Count 4.95 M/mm3 (4.2-5.4)
--- NOTE | 2020-06-26 17:06 | ED.RN ---
states ok with 1 blood culture at this time.
[2020-06-26 17:14] LABS: ALB/GLOB Ratio 0.8 RATIO (0.9-2.4); AST(SGOT) 5 U/L (15-37); Alanine Aminotransfer ALT/SGPT 18 U/L (13-56); Albumin, Serum 3.3 g/dL (3.2-5.0); Alkaline Phosphatase 73 U/L (45-117); Anion Gap 5 (5-15); BUN 14 mg/dL (7-18); BUN/Creat Ratio 20.7 RATIO (10-20); Calcium,Total 8.6 mg/dL (8.5-10.1); Chloride 103 mmol/L (98-107); Creatinine, Serum 0.68 mg/dL (0.55-1.02); EST Glomerular Filtration Rate 102 mL/min (>60); Est Glom Filt Rate - Afr Amer 123 mL/min (>60); Estimated Creatinine Clearance 90.97 ml/min; Globulin 4.2 g/dL (2.2-4.2); Glucose 200 mg/dL (74-106); Lipase 55 U/L (73-393); Potassium 3.6 mmol/L (3.5-5.1); Protein, Total 7.5 g/dL (6.4-8.2); Sodium Level 136 mmol/L (136-145)
[2020-06-26 17:17] LABS: D-Dimer Quantitative (DVT/PE) 0.38 FEU/ug/m (0.27-0.49)
[2020-06-26 18:08] VITALS: PULSE 81; RESP 18; O2SAT 94
== END 2020-06-26 18:17 | disposition home or self-care (01) ==
PROVIDERS: Emergency Provider Student in an Organized Health Care Education/Training Program
DX: B34.9 Viral infection, unspecified (principal); R11.2 Nausea with vomiting, unspecified; R19.7 Diarrhea, unspecified; M79.10 Myalgia, unspecified site; R68.83 Chills (without fever); E11.9 Type 2 diabetes mellitus without complications; F17.200 Nicotine dependence, unspecified, uncomplicated; Z86.718 Personal history of other venous thrombosis and embolism; Z88.0 Allergy status to penicillin; Z90.710 Acquired absence of both cervix and uterus; Z90.721 Acquired absence of ovaries, unilateral
CPT/HCPCS: 71045; 80053; 83690; 84145; 84484; 85025; 85379; 87040; 87426; 93005; 96374; 99284; A4216; J2405

== ENCOUNTER 2020-07-18 01:25 | Emergency (ER) | payer OTHER, SELFPAY ==
--- NOTE | 2020-07-18 03:00 | CT_ITS ---
STUDY: CT ABDOMEN AND PELVIS WITH CONTRAST REASON FOR EXAM: Female, 39 years old. Mid abdominal pain with emesis. RADIATION DOSAGE (If Supplied By Facility): CTDIvol = ( 15.27 ) mGy, DLP = ( 1081.71 ) mGycm TECHNIQUE: Transaxial images were obtained from the dome of the diaphragm to the symphysis pubis without oral contrast. IV 100mL Isovue-370 was administered. Sagittal and coronal images were reconstructed. Individualized dose optimization techniques were used for this CT. COMPARISON: July 27, 2018. FINDINGS: The visualized lung bases are unremarkable. The visualized portions of the heart are within normal limits. Normal liver. Surgical clips distal to the inferior margin of the liver. Normal gallbladder and extrahepatic biliary system. Normal spleen. Normal pancreas. Normal bilateral adrenal glands. Normal right kidney. Normal left kidney. Normal visualized stomach. Normal small intestine. Normal colon. There is non-visualization of the appendix. Suture line right mid abdomen. Midline upper abdominal ventral hernia containing portions of the transverse colon without evidence of strangulation. Suture line rectosigmoid junction. In the pelvis ventral hernia slightly left parasagittal containing fluid-filled dilated loop of small bowel measuring 3.3 cm in transverse dimension. Fluid-filled mildly dilated loops of small bowel proximal and distal to the hernia coronal images 18-52, axial images 64 through 97 and sagittal images 111. Normal abdominal aorta. There is an IVC filter in place. Normal retroperitoneum. No intra-abdominal free air. Normal urinary bladder. The uterus is grossly normal. No adnexal mass is seen. Small amount of ascites right posterior pelvis. Normal abdominal wall. Normal osseous structures. CT/Abdomen/Pelvis WITH Contrast IMPRESSION: Ventral hernia in the pelvis left parasagittal containing a fluid-filled dilated loop of small bowel. Developing distal small bowel obstruction. Consider surgical consult. Small amount of ascites right posterior pelvis. No intra-abdominal free air. Upper abdominal ventral hernia containing colon without evidence of strangulation. Electronically Signed: Joel Gerber MD at 5:38 EDT , Service support ,
--- NOTE | 2020-07-18 06:15 | RAD_ITS ---
STUDY: X-RAY - ABDOMEN/PELVIS REASON FOR EXAM: Female, 39 years old. Nasogastric tube placement. TECHNIQUE: AP portable upright abdomen. COMPARISON: [facility] view CT abdomen and pelvis July 13, 2020. FINDINGS: Normal visualized lung bases. Nasogastric tube tip slightly to the right of midline in the lower abdomen, in the region of the gastric antrum. Mildly dilated loops of small bowel in the mid abdomen and left lower quadrant noted previously. There is no demonstrated free abdominal air. Caval filter. The visualized liver, spleen and kidneys are grossly normal in size and morphology. Normal soft tissue structures. Normal visualized osseous structures. RAD/Abdomen Single View (Portable) IMPRESSION: Nasogastric tube tip in its expected location. Mildly dilated loops of proximal and mid small bowel. Electronically Signed: Joel Gerber MD at 6:44 EDT , Service support ,
[2020-07-18 08:33] LABS: ALB/GLOB Ratio 0.9 RATIO (0.9-2.4); AST(SGOT) 7 U/L (15-37); Alanine Aminotransfer ALT/SGPT 17 U/L (13-56); Albumin, Serum 3.5 g/dL (3.2-5.0); Alkaline Phosphatase 62 U/L (45-117); BUN 11 mg/dL (7-18); BUN/Creat Ratio 14.1 RATIO (10-20); Calcium,Total 9.1 mg/dL (8.5-10.1); Creatinine, Serum 0.78 mg/dL (0.55-1.02); EST Glomerular Filtration Rate 87 mL/min (>60); Est Glom Filt Rate - Afr Amer 105 mL/min (>60); Globulin 3.8 g/dL (2.2-4.2); Glucose 266 mg/dL (74-106); Lipase 60 U/L (73-393); Protein, Total 7.3 g/dL (6.4-8.2); Sodium Level 137 mmol/L (136-145)
[2020-07-18 08:34] LABS: Anion Gap 7 (5-15); Chloride 101 mmol/L (98-107); Potassium 4.1 mmol/L (3.5-5.1)
[2020-07-18 10:21] LABS: Hematocrit 42.1 % (37-47); Hemoglobin 13.9 g/dL (12.0-15.0); Mean Corpuscular Volume 90.9 fL (81-99); Platelet Count 318 K/mm3 (150-450); RBC Distribution Width CV 12.4 % (11.6-14.6); RBC Distribution Width SD 41.1 fl (35.1-43.9); Red Blood Count 4.63 M/mm3 (4.2-5.4)
[2020-07-18 10:22] LABS: Absolute Lymphocyte Count 1.74 X10^3/uL (0.83-4.51); Absolute Neutrophil Count 6.6 X10^3/uL (2.0-7.7); Eosinophils% 0.2 % (0-5); Lymphocyte # 1.74 X10^3/ul (0.83-4.51); Lymphocyte % 19.3 % (19-41); Mean Platelet Vol. 9.4 fl (6.2-12.0); Monocyte% 5.9 % (0-10); Neutrophil # 6.63 X10^3/uL (2.7-7.7); Neutrophil % 73.4 % (47-70)
--- NOTE | 2020-07-18 22:47 | EDS_ITS ---
PFSH PFSH Home Medications NK 07/24/20 [History Last Taken Unknown] Allergy/AdvReac Type Severity Reaction Status Date / Time Penicillins AdvReac Nausea/Vom/ Verified 07/24/20 15:44 Diarrhea Social History Smoking Status: Current every day smoker [facility] Treatment and Re-Evaluation Comments:: This dictation was created on August 02. The patient was seen on July 18 during computer downtime and installation of the new software. Please refer to the template that was created at that time. Patient presents for abdominal pain. This started earlier today and was sudden. It was located in the epigastric region and sharp. Worse after eating fernandez. Associated with nausea and vomiting. History of cervical cancer and subsequent ileostomy and colostomy after her bowel wall broke. Treated by surgeon in [place]. Vital signs reviewed. Patient alert and oriented. Appears uncomfortable, tearful. Abdomen is tender with no guarding or rebound. Heart regular. Lungs clear. Small bowel obstruction and ventral hernia Patient was treated with fluids, pain medicine, nausea medicine. Lab work was all fairly unremarkable. CT showed a ventral hernia with a dilated small bowel loop. Patient was discussed with her surgeon Dr. Palencia and will be transferred [place] [facility] [place] care at the patient's request. NG tube was placed by nursing. Patient transferred in stable condition Discharge Plan Triage ED Provider: Rafat Edgar/Rx/DC Orders Prescriptions: No Action NK RF: 0 Primary Care Provider: Care Physician,No Primary Disposition Disposition: Transfer to another type HCF Discharge Date/Time: 07/18/20 07:50
[2020-07-19 13:41] LABS: Internal QC Validated? YES +Cl - CLEAR BKGD; Pregnancy, Urine Negative Negative; Record Kit Lot#,Urine Preg 42100
[2020-07-19 14:48] LABS: Bacteria 0 SEEN /hpf (None Seen); Mucous, Urine 0 SEEN /hpf (<or=2+); Red Blood Cells-Urine 0 SEEN /hpf (0-5); Squamous Epithelial Cells - UA 0 SEEN /hpf (5-10)
[2020-07-19 14:50] LABS: Color, Urine Yellow (Yellow); Glucose, Dipstick 1000 mg/dl (Normal); Ketone-Dipstick 5 mg/dl (Negative); Leukocyte Esterase-Dipstick 25 /ul (Negative); Nitrite-Dipstick Negative (Negative); Occult Blood-Urine Negative /ul (Negative); Protein-Dipstick 15 mg/dl (Negative); Urine Bilirubin Dipstick Negative (Negative); Urine Clarity Cloudy (Clear); Urine Urobilinogen Normal (Normal)
[2020-07-19 14:55] LABS: Amorphous Sediment 3+; White Blood Cells 0-5 SEEN /hpf (0-5)
== END 2020-07-18 07:50 | disposition other institution (70) ==
LOC: ED 06:54
PROVIDERS: Emergency Provider Emergency Medicine
DX: K56.609 Unspecified intestinal obstruction, unspecified as to partial versus complete obstruction (principal); K43.9 Ventral hernia without obstruction or gangrene; E11.9 Type 2 diabetes mellitus without complications; Z85.41 Personal history of malignant neoplasm of cervix uteri; F17.200 Nicotine dependence, unspecified, uncomplicated
CPT/HCPCS: 74018; 74177; 80053; 81001; 81025; 83690; 85025; 87426; 96361; 96374; 96375; 99284; J7030; Q9967; A4216; J2405

== ENCOUNTER 2020-07-24 15:39 | Emergency (ER) | payer OTHER, SELFPAY ==
[2020-07-24 15:40] VITALS: BP 149/80; PULSE 95; RESP 17; TEMP 36.4; O2SAT 95; BMI 34.7
--- NOTE | 2020-07-24 17:27 | ED.RN ---
Tis RN called for pt multiple times in waiting room ad outside. Pt not in department
== END 2020-07-24 18:13 ==
LOC: ED 18:13
DX: R10.9 Unspecified abdominal pain (principal)

== ENCOUNTER 2020-10-13 15:13 | Emergency (ER) | payer OTHER, SELFPAY ==
[2020-10-13 15:14] VITALS: BP 136/93; PULSE 113; RESP 16; TEMP 36.7; O2SAT 97; BMI 33.9
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
[2020-10-13] MEDS: Clindamycin HCl 150 MG Capsule 300 MG PO (16:37)
[2020-10-13 16:39] VITALS: PULSE 90; RESP 16
== END 2020-10-13 16:39 | disposition home or self-care (01) ==
LOC: ED 15:56
PROVIDERS: Emergency Provider Emergency Medicine
DX: S01.512A Laceration without foreign body of oral cavity, initial encounter (principal); Y04.2XXA Assault by strike against or bumped into by another person, initial encounter; Y92.9 Unspecified place or not applicable; Y99.9 Unspecified external cause status; E11.9 Type 2 diabetes mellitus without complications; F17.210 Nicotine dependence, cigarettes, uncomplicated; Z79.84 Long term (current) use of oral hypoglycemic drugs; Z85.038 Personal history of other malignant neoplasm of large intestine
CPT/HCPCS: 99283

== ENCOUNTER 2020-12-26 09:48 | Emergency (ER) | payer MEDICARE, SELFPAY ==
[2020-12-26 09:52] VITALS: BP 126/87; PULSE 96; RESP 14; TEMP 36.8; O2SAT 98; BMI 32.8
--- NOTE | 2020-12-26 09:57 | EKG12_ITS ---
Test Reason : CP Blood Pressure : / mmHG Vent. Rate : 088 BPM Atrial Rate : 088 BPM P-R Int : 134 ms QRS Dur : 070 ms QT Int : 362 ms P-R-T Axes : 054 034 035 degrees QTc Int : 438 ms Normal sinus rhythm Normal ECG Confirmed by TRIXIE ARIZA, CATRACHITO ([id number]), social media editor AKUA ANDRES ([id number]) on 01/01/2021 9:29:30 A M Referred By: BETH Confirmed By:NEVAEH MARCUM MD
[2020-12-26 10:19] LABS: Absolute Lymphocyte Count 0.51 X10^3/uL (0.83-4.51); Basophil# 0.02 X10^3/uL; Basophil% 0.5 % (0-1); Eosinophil# 0.04 X10^3/uL; Hematocrit 41.8 % (37-47); Hemoglobin 13.8 g/dL (12.0-15.0); Lymphocyte # 0.51 X10^3/ul (0.83-4.51); Lymphocyte % 13.3 % (19-41); Mean Corpuscular Volume 90.9 fL (81-99); Mean Platelet Vol. 9.4 fl (6.2-12.0); Monocyte# 0.29 X10^3/uL; Monocyte% 7.6 % (0-10); NRBC Flagged by Analyzer 0 % (0-5); Neutrophil # 2.95 X10^3/uL (2.7-7.7); Neutrophil % 77.1 % (47-70); POSITIVE DIFFERENTIAL YES; Platelet Count 226 K/mm3 (150-450); RBC Distribution Width CV 12.4 % (11.6-14.6); White Blood Count 3.8 K/mm3 (4.4-11.0)
[2020-12-26 10:20] LABS: Differential Indicated SCAN CRITERIA MET
--- NOTE | 2020-12-26 10:24 | RAD_ITS ---
STUDY: X-RAY CHEST REASON FOR EXAM: Female, 40 years old. Chest pain TECHNIQUE: Single AP portable view of the chest. COMPARISON: 06/26/2020 FINDINGS: The lungs are clear and expanded. Stable blunting of the left costophrenic angle, this may represent pleural scarring and/or small left pleural effusion. The right costophrenic angle is clear. Normal size heart. Normal mediastinum and luis enrique. Normal visualized pulmonary arteries. Normal visualized aortic arch and descending thoracic aorta. Normal visualized thoracic spine. Normal visualized ribs, clavicles, and shoulders. There is no demonstrated abnormality of the visualized soft tissue structures of the upper abdomen. RAD/Chest 1 View (Portable) IMPRESSION: The lungs are clear and expanded. Stable blunting of the left costophrenic angle, this may represent pleural scarring and/or small left pleural effusion. Electronically Signed: Stephanie Pinto MD at 11:00 EDT Tel , Service support ,
--- NOTE | 2020-12-26 10:27 | CT_ITS ---
STUDY: CTA CHEST REASON FOR EXAM: Female, 40 years old. Chest pain RADIATION DOSAGE (If Supplied By Facility): CTDIvol = ( 10.30 ) mGy, DLP = ( 373.80 ) mGycm TECHNIQUE: The examination was performed with the intravenous administration of IV 100mL Isovue-370. Post-processing of the angiographic images was performed, with multiplanar reformation and 3D reconstruction. Individualized dose optimization techniques were used for this CT. COMPARISON: None. FINDINGS: Normal enhancement of the main pulmonary artery and right and left pulmonary arteries. Normal enhancement of the bilateral peripheral pulmonary arteries. There is no demonstrated pulmonary embolism. Normal pleura. Mild atelectasis at the left costophrenic angle. Normal thoracic aorta and visualized great vessels. There is no demonstrated aortic dissection. Normal heart and pericardium. No mediastinal, axillary or bulky hilar adenopathy. Normal visualized trachea and bronchi. Normal chest wall structures. Normal osseous structures. Normal visualized upper abdomen. CT/CTA Chest W/WO Contrast IMPRESSION: No pulmonary embolism or arterial dissection. The lungs are clear. Electronically Signed: Stephanie Pinto MD at 12:37 EDT Tel , Service support ,
--- NOTE | 2020-12-26 10:28 | EDS_ITS ---
HPI History of Present Illness Chief Complaint: Chest Pain Narrative Narrative: 40-year-old female presenting with cough, chills. She is also complaining of retrosternal chest pain which is sharp. Patient states that her boyfriend currently has COVID-19 and she thinks she has developed this. Patient states that she had 1 dose of the Pfizer shot a couple of months ago but never followed up for the second dose. 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 She states she is unclear what provoked this although she does have a history of cervical cancer. She states that she beat this. [facility] Medical History Diabetes Hx of cervical cancer Home Medications NK 12/26/20 [History Last Taken Unknown] Allergy/AdvReac Type Severity Reaction Status Date / Time Penicillins AdvReac Nausea/Vom/ Verified 12/26/20 09:52 Diarrhea Surgical History Hx of colostomy Hx of ileostomy Social History Smoking Status: Current every day smoker tobacco type: cigarettes ROS ROS ED Constitutional Constitutional ED: Reports chills; Denies fever(s) Eyes Eyes: Denies blurry vision or change in vision ENT ENT ED: Reports sore throat; Denies rhinorrhea Cardiovascular Cardiovascular: Reports chest pain Respiratory/Chest Respiratory/Chest: Reports cough and dyspnea Gastrointestinal Gastrointestinal: Reports nausea and vomiting; Denies abdominal pain Genitourinary Genitourinary ED: Denies dysuria or hematuria Musculoskeletal Musculoskeletal: Reports myalgias; Denies arthralgias or neck pain Integumentary Denies Abrasions or rash Neurologic Neurologic: Reports headache(s); Denies paresthesias EXAM Physical Exam Const Vital Signs: 12/26/20 09:51 12/26/20 09:52 12/26/20 10:36 Temperature 98.3 F 98.3 F Temperature Source Temporal Temporal Pulse Rate 96 82 Respiratory Rate 14 11 L Respiratory Effort Normal Non-Labored Blood Pressure 126/87 H 106/70 Blood Pressure Mean 100 82 Pulse Ox 98 Oxygen Delivery Method Room Air 12/26/20 13:30 Temperature Temperature Source Pulse Rate 86 Respiratory Rate 20 H Respiratory Effort Blood Pressure 110/72 Blood Pressure Mean 84 Pulse Ox Oxygen Delivery Method Positive well nourished General Appearance ED: NAD; Negative for pallor HEENT Reports moist mucous membranes normocephalic and atraumatic Eyes PERRL and EOMs intact bilaterally Resp normal respiratory effort Effort and Inspection: respiratory distress Cardio regular rate and regular rhythm Neuro oriented x3 Sensorium / Orientation: awake and alert Psych mental status grossly normal Skin no rashes or lesions noted General Skin Exam: Negative for jaundice or pallor Heart Score History: Slightly/Non-Suspicious ECG: Normal Age: </= 45 years Risk Factors: No Risk Factors Troponin: </= Normal Limit Score: 0 MDM MDM MDM Narrative Medical decision making narrative: Patient presenting with Covid symptoms and her boyfriend currently has COVID-19. Her symptoms are fairly mild although she is having some chest discomfort. She describes as sharp. She does have history of DVT and PE which may be due to her history of cervical cancer. She is unc lear. She did test positive for COVID-19 today. Her lab work shows that she is leukopenic and lymphopenic. Her renal function electrolytes are normal. Initial troponin is 4 and second 1 is 5. Therefore from a cardiac standpoint I feel she is cleared. Her chest x-ray shows no acute cardiopulmonary process on my interpretation. The radiologist states that there may be some left pleural scarring. Due to her history of DVT and PE I did obtain a CTA which is ultimately negative for pneumonia, PE, dissection. Patient's vital signs are stable and she is afebrile. She is not requiring home oxygen. Return precautions were discussed at length with her. She will monitor her pulse ox at home. Does not believe she needs steroids currently. Patient discharged home in stable condition. Impression: 1. Chest pain noncardiac 2. COVID-19 pneumonitis Lab Data Labs: Laboratory Results - last 24 hr 12/26/20 12/26/20 12/26/20 10:10 10:10 12:15 WBC 3.8 L RBC 4.60 Hgb 13.8 Hct 41.8 MCV 90.9 MCH 30.0 MCHC 33.0 RDW Std Deviation 41.0 RDW Coeff of Jennifer 12.4 Plt Count 226 MPV 9.4 Immature Gran % (Auto) 0.500 Neut % (Auto) 77.1 H Lymph % (Auto) 13.3 L [place] % (Auto) 7.6 Eos % (Auto) 1.0 Baso % (Auto) 0.5 Absolute Neuts (auto) 3.0 Absolute Lymphs (auto) 0.51 L Nucleated RBC % 0 Diff Path Review May foll Sodium 134 L Potassium 3.9 Chloride 100 Carbon Dioxide 26.0 Anion Gap 8 BUN 6 L Creatinine 0.90 Estim Creat Clear Calc 68.05 Est GFR (MDRD) Af Amer 88 Est GFR (MDRD) Non-Af 73 BUN/Creatinine Ratio 6.7 L Glucose 442 H Calcium 8.8 Troponin I High Sens 4 5 Radiography Diagnostic Testing: Radiology Impression Chest X-Ray 12/26/20 10:24 IMPRESSION: The lungs are clear and expanded. Stable blunting of the left costophrenic angle, this may represent pleural scarring and/or small left pleural effusion. Electronically Signed: Stephanie Pinto MD at 11:00 EDT Tel , Service support , Chest CTA 12/26/20 10:27 IMPRESSION: No pulmonary embolism or arterial dissection. The lungs are clear. Electronically Signed: Stephanie Pinto MD at 12:37 EDT Tel , Service support , Discharge Plan Triage Chief Complaint: Chest Pain ED Provider: Sergio Mckeon Dx/Rx/DC Orders Instructions: Coronavirus Disease 2019 (COVID-19): Caring for Yourself or Others, ED Chest Pain, Noncardiac Prescriptions: No Action NK RF: 0 Primary Care Provider: Care Physician,No Primary Referrals: Care Physician,No Primary [Primary Care Provider] - Disposition Disposition: Home, Self Care Discharge Date/Time: 12/26/20 13:33
[2020-12-26 10:36] VITALS: BP 106/70; PULSE 82; RESP 11; TEMP 36.8
[2020-12-26 10:37] LABS: Anion Gap 8 (5-15); BUN 6 mg/dL (7-18); BUN/Creat Ratio 6.7 RATIO (10-20); Calcium,Total 8.8 mg/dL (8.5-10.1); Chloride 100 mmol/L (98-107); EST Glomerular Filtration Rate 73 mL/min (>60); Est Glom Filt Rate - Afr Amer 88 mL/min (>60); Estimated Creatinine Clearance 68.05 ml/min; Glucose 442 mg/dL (74-106); Potassium 3.9 mmol/L (3.5-5.1); Sodium Level 134 mmol/L (136-145); Troponin-I HS 4 pg/mL (3.0-54.0)
[2020-12-26 12:54] LABS: Troponin-I HS 5 pg/mL (3.0-54.0)
[2020-12-26 13:30] VITALS: BP 110/72; PULSE 86; PULSE 91; RESP 18; RESP 20
[2020-12-27 12:30] LABS: Pathologist Review Reviewed
== END 2020-12-26 13:33 | disposition home or self-care (01) ==
PROVIDERS: Emergency Provider Student in an Organized Health Care Education/Training Program
DX: U07.1 COVID-19 (principal); J12.82 Pneumonia due to coronavirus disease 2019; E11.9 Type 2 diabetes mellitus without complications; F17.210 Nicotine dependence, cigarettes, uncomplicated; Z85.41 Personal history of malignant neoplasm of cervix uteri; Z86.718 Personal history of other venous thrombosis and embolism; Z93.2 Ileostomy status; Z93.3 Colostomy status
CPT/HCPCS: 71045; 71275; 80048; 84484; 85025; 87426; 93005; 99285; Q9967; A4216

== ENCOUNTER 2021-03-17 23:50 | Emergency (ER) | payer SELFPAY ==
[2021-03-17 23:51] VITALS: BP 117/80; PULSE 65; RESP 16; TEMP 36; O2SAT 97; BMI 33.3
[2021-03-17 23:53] VITALS: BP 117/80; PULSE 65; RESP 16; TEMP 36; O2SAT 97
--- NOTE | 2021-03-18 00:06 | EX.ED.UPPERE ---
HPI History of Present Illness HPI Narrative: Patient presents with a laceration to her left index finger near the MP joint that occurred tonight. Patient states she was using a knife to cut open a package when it slipped and cut her finger. Patient states she cleaned the wound and closed it with a Band-Aid. Patient states that while she was driving she flexed her left index finger and the wound opened again. Patient admits to some increased swelling. Patient is unsure of her last tetanus. Patient denies any paresthesias or weakness. Chief Complaint: Laceration Informant: patient Occured/Mechanism Comment: Cut with a knife Onset/Context/Timing Onset: Today and Hours (2-3) Context: Sudden Onset Timing: Continuous Quality of Pain: Aching Location: Left index finger Worsened by: Movement Relieved by: Rest Associated Symptoms Associated Symptoms: Negative for Parasthesia, Weakness and Loss of Funtion Narrative Tetanus Immunization: Unknown [facility] Medical History Diabetes Hx of cervical cancer Home Medications NK 12/26/20 [History Last Taken Unknown] Allergy/AdvReac Type Severity Reaction Status Date / Time Penicillins AdvReac Nausea/Vom/ Verified 12/26/20 09:52 Diarrhea Surgical History Hx of colostomy Hx of ileostomy Social History Smoking Status: Current every day smoker tobacco type: cigarettes ROS ROS ED Constitutional Constitutional ED: Denies chills or fever(s) Eyes Eyes: Denies blurry vision or change in vision ENT ENT ED: Denies rhinorrhea or sore throat Cardiovascular Cardiovascular: Denies chest pain or palpitations Respiratory/Chest Respiratory/Chest: Denies cough or dyspnea Gastrointestinal Gastrointestinal: Denies nausea or vomiting Genitourinary Genitourinary ED: Denies dysuria or hematuria Musculoskeletal Musculoskeletal: Denies back pain or neck pain Integumentary Denies abscess or rash Neurologic Neurologic: Denies headache(s) or weakness Allergic/Immunologic Allergic/Immunologic ED: Denies mouth swelling or urticaria EXAM Physical Exam Const Vital Signs: 03/17/21 23:51 03/17/21 23:53 Temperature 96.8 F L 96.8 F L Temperature Source Temporal Temporal Pulse Rate 65 65 Respiratory Rate 16 16 Blood Pressure 117/80 117/80 Blood Pressure Mean 92 92 Pulse Ox 97 97 Oxygen Delivery Method Room Air Room Air Positive well nourished and well developed General Appearance ED: well developed HEENT Reports moist mucous membranes Neck full ROM and supple Extremity Extremity Narrative: There is a 1 cm full-thickness linear laceration over the dorsal aspect of the left index finger at the base of the proximal phalanx near the MP joint. There is moderate gapping of the wound margins. There is a superficial laceration of the extensor tendon. It is not full-thickness. There are no foreign bodies noted. Strength is 5/5 in flexion and extension of the MP, PIP, and DIP joints of the left index finger. Sensation was intact to light touch in all digits. Capillary refill was less than 2 seconds in all digits. Neuro oriented x3, CN's II-XII intact bilaterally, moves all extremities, no focal motor deficits and no sensory deficits noted Sensorium / Orientation: alert Psych mental status grossly normal MDM MDM MDM Narrative Medical decision making narrative: The wound was cleaned and irrigated with copious amounts of normal saline. The wound was anesthetized with 1% plain lidocaine locally. The wound was closed with 2 simple interrupted #4-0 nylon sutures under sterile technique. Patient tolerated the procedure well. Bacitracin dressing was applied. Patient was placed on AlumaFoam splint. Patient was instructed to keep the wound clean and dry. Patient was instructed to follow-up with her primary care physician in 5 to 7 days. Patient was also given a referral for orthopedics for follow-up care in 5 to 7 days if needed. Patient understands and is agreeable with the plan. All questions were answered. Procedures Lacerations Left index finger: Length: 1 cm Depth: Sub Q Shape: Linear Prep: Sterile Conditions and Chlorhexadine Laceration repair: Irrigated, Lidocaine, Local, Skin sutures and Wound explored Irrigated (ml): 100 Number of Sutures/Maria C: 2 Suture Information: Ethilon, Simple and 4-0 Discharge Plan Triage Chief Complaint: Laceration ED Provider: Jay Jaquez Dx/Rx/DC Orders Clinical Impression: Laceration of left index finger Instructions: ED Laceration, Hand: All Closures Prescriptions: No Action NK RF: 0 Primary Care Provider: Care Physician,No Primary Referrals: Erasmo Andino MD [STAFF PHYSICIAN] - 5 Days for suture removal Ronaldo Guthrie DO [STAFF PHYSICIAN] - 10-14 Days if not better Care Physician,No Primary [Primary Care Provider] - Disposition Disposition: Home, Self Care
[2021-03-18] MEDS: Diphth,Pertuss(Acell),Tet Vac 0.5 ML Vial IM (00:16)
[2021-03-18] MEDS: Lidocaine 1% (20 ml mdv) 20 ML Vial INFILT (00:18)
[2021-03-18 01:33] VITALS: BP 117/80; PULSE 65; TEMP -8.3; TEMP 17; O2SAT 97
== END 2021-03-18 01:33 | disposition home or self-care (01) ==
PROVIDERS: Emergency Provider Emergency Medicine
DX: S61.211A Laceration without foreign body of left index finger without damage to nail, initial encounter (principal); W26.0XXA Contact with knife, initial encounter; F17.210 Nicotine dependence, cigarettes, uncomplicated; Z93.2 Ileostomy status; Z85.41 Personal history of malignant neoplasm of cervix uteri; E11.9 Type 2 diabetes mellitus without complications; Z23 Encounter for immunization
CPT/HCPCS: 12001; 90471; 90715; 99284

== ENCOUNTER 2021-05-20 18:57 | Emergency (ER) | payer BC, SELFPAY ==
[2021-05-20 19:04] VITALS: BP 121/87; PULSE 86; RESP 23; TEMP 36.4; O2SAT 98; BMI 32.5
--- NOTE | 2021-05-20 19:24 | EKG12_ITS ---
Test Reason : CP Blood Pressure : / mmHG Vent. Rate : 083 BPM Atrial Rate : 083 BPM P-R Int : 158 ms QRS Dur : 074 ms QT Int : 384 ms P-R-T Axes : 054 032 032 degrees QTc Int : 451 ms Normal sinus rhythm Normal ECG Confirmed by TYLER OWENS MD ([id number]), slot editor AKUA ANDRES ([id number]) on 05/22/2021 11:07:54 AM Referred By: CORBIN Confirmed By:TYLER OWENS MD
--- NOTE | 2021-05-20 19:33 | EDS_ITS ---
HPI History of Present Illness Chief Complaint: Chest Pain Informant: patient Onset/Context/Timing Onset: Days Activity at onset: gradual Location: Right Chest and Left Chest Current Severity: Mild Maximum Severity: Mild Worsened By: Nothing Relieved By: Nothing Associated Symptoms: Negative for Nausea, Vomiting, Diaphoresis, Dyspnea, Cough, Fever, Lightheadedness, Acid Reflux and Palpitations Narrative Narrative: 40-year-old female. History of diabetes currently on no medications. Prior cervical cancer for which she had radiation and needed colostomy that had a reverse. After one of her surgical procedures she developed a PE. States that she has not felt well last several days with some nausea vomiting diarrhea thought she had a virus. On Friday developed some chest discomfort across her chest. Nothing particular makes it better or worse. Is been constant. Is not associated with exertion. She denies any pleuritic pain. No hemoptysis. No leg pain or swelling. She does smoke about half a pack of cigarettes a day. There is family history of cardiac disease. Prior Similar Symptoms: No Recent Illness/Hospitalization: No CVD Risk Factors: Positive for Hypertension, Diabetes and Smoking; Negative for Hypercholesterolemia and Family History 1' </=55 PE Risk Factors: Positive for Prior DVT or PE; Negative for Recent Travel/Surgery, Recent Immobilization, Cancer and OCP + Smoking + >/=35 TAD Risk Factors: Negative for Marfan's Syndrome PFSH [facility] Medical History Diabetes Hx of cervical cancer Home Medications metformin 500 mg PO BID #60 tab 05/20/21 [Rx Last Taken Unknown] Allergy/AdvReac Type Severity Reaction Status Date / Time Penicillins AdvReac Nausea/Vom/ Verified 05/20/21 19:06 Diarrhea Surgical History Hx of colostomy Hx of ileostomy Social History Smoking Status: Current every day smoker tobacco type: cigarettes ROS ROS ED ROS Narrative Chest discomfort. Nausea, vomiting and diarrhea resolved. Review of Systems ROS Unobtainable: Denies due to encephalopathy Constitutional Constitutional ED: Denies fever(s) Eyes Eyes: Denies none ENT ENT ED: Denies ear pain Cardiovascular Cardiovascular: Reports as per HPI and chest pain; Denies palpitations or racing heartbeat Respiratory/Chest Respiratory/Chest: Denies cough, dyspnea or sputum Gastrointestinal Gastrointestinal: Reports diarrhea, nausea and vomiting; Denies abdominal pain, constipation or melena Genitourinary Genitourinary ED: Denies dysuria Musculoskeletal Musculoskeletal: Denies myalgias Integumentary Denies rash Neurologic Neurologic: Denies headache(s) Psychiatric Psychiatric: Denies depression Endocrine Endocrinology: Denies polyuria Hematologic/Lymphatic Hematologic/Lymphatic: Denies easy bruising Allergic/Immunologic Allergic/Immunologic ED: Denies urticaria EXAM Physical Exam Narrative Exam Narrative: Right femur no acute distress. Vital signs stable afebrile. Current blood pressure 121/87. Pulse ox 90% on room air no signs hypoxia. HEENT exam unremarkable. Moist with memories. Neck nontender no JVD. Lungs clear to auscultation. Heart regular rate and rhythm no murmur rate about 80. Chest were nontender. Abdomen soft nontender. Moving all 4 extremities. Calves are nontender without edema or cords. Neurologically she is awake alert with no focal motor deficits. Const Vital Signs: 05/20/21 19:04 05/20/21 19:48 Temperature 97.6 F L Temperature Source Oral Pulse Rate 86 Respiratory Rate 23 H Blood Pressure 121/87 H Blood Pressure Mean 98 Pulse Ox 98 98 Oxygen Delivery Method Room Air Room Air Positive well nourished and well developed; Negative for cachectic, contractures or unkempt General Appearance ED: well developed; Negative for unkempt, cachectic, contractures, NAD or pallor Nutritional Appearance: Negative for cachectic HEENT Reports moist mucous membranes normocephalic and atraumatic; Negative for trauma or tenderness Eyes PERRL and EOMs intact bilaterally Neck no lymphadenopathy, supple and no JVD General: Negative for tenderness Chest Wall inspection of chest normal and palpation of chest normal Chest: Negative for tenderness Resp normal respiratory effort and clear to auscultation bilaterally Effort and Inspection: respiratory distress Auscultation: Negative for rales, rhonchi or wheezes Cardio regular rate, regular rhythm, S1 normal heart sound, S2 normal heart sound and no murmurs Rate: Negative for tachycardic GI normal to inspection, nondistended, normoactive bowel sounds, soft to palpation, non-tender, non-distended and no masses; Negative for hepatosplenomegaly Auscultation: Negative for hyperactive bowel sounds Palpation: Negative for splenomegaly Back/Spine no CVA tenderness and no thoracic nor lumbar tenderness General Back: Negative for CVA tenderness Cervical Spine: Negative for cervical spine tenderness Extremity normal to inspection General Extremety ED: Negative for edema, pulses abnormal or tenderness General Extremity: Negative for edema or pulses abnormal Neuro oriented x3 and CN's II-XII intact bilaterally Sensorium / Orientation: awake, alert, oriented to person, oriented to place and oriented to time Motor Exam: strength 5/5 throughout Psych mental status grossly normal Appearance: Negative for unkempt Attitude: No agitated Mood & Affect: Negative for depressed, anxious or tearful Skin no rashes or lesions noted and no wounds General Skin Exam: Negative for jaundice or pallor Heart Score History: Slightly/Non-Suspicious ECG: Normal Age: </= 45 years Risk Factors: 1 or 2 Risk Factors Troponin: </= Normal Limit Score: 1 MDM MDM MDM Narrative Medical decision making narrative: 40-year-old female atypical nonreproducible chest pain. Exam benign. Cardiac work-up. Repeat exam patient is doing well at 8:57 PM. She will be discharged home. We went over her test results. She will be restarted on Metformin which she has been on before in the past. Instructed get a local primary care physician. She knows return if worse. The chest pain has been constant for multiple days at home. I do not think she needs a second troponin. Lab Data Attestation: I reviewed the patient's lab results. Lab results narrative: CBC shows a white count of 5. H&H of 13 and 39. Electrolytes show sodium 134. Gap of 4. Normal creatinine. Glucose elevated at 404 she is diabetic. Troponin normal at 4. Chest x-ray unremarkable. Labs: Laboratory Results - last 24 hr 05/20/21 05/20/21 19:45 19:45 WBC 5.1 RBC 4.46 Hgb 13.7 Hct 39.4 MCV 88.3 MCH 30.7 MCHC 34.8 RDW Std Deviation 39.9 RDW Coeff of Jennifer 12.4 Plt Count 245 MPV 9.0 Immature Gran % (Auto) 0.400 Neut % (Auto) 61.8 Lymph % (Auto) 30.0 [place] % (Auto) 6.0 Eos % (Auto) 1.4 Baso % (Auto) 0.4 Absolute Neuts (auto) 3.2 Absolute Lymphs (auto) 1.54 Nucleated RBC % 0 Sodium 134 L Potassium 4.9 Chloride 103 Carbon Dioxide 27.0 Anion Gap 4 L BUN 12 Creatinine 0.75 Estim Creat Clear Calc 81.66 Est GFR (MDRD) Af Amer 109 Est GFR (MDRD) Non-Af 90 BUN/Creatinine Ratio 15.9 Glucose 404 H Calcium 8.7 Troponin I High Sens 4 Radiography Chest X-Ray - ED: 1 View, Read by ED Physician, Heart, Lungs, Mediastinum, Bony Structures, No Acute Disease and Chronic Changes Diagnostic Testing: Unremarkable single view portable chest x-ray interpreted by myself. Rhythm Strip Rhythm Strip: Sinus Rhythm Rate: 83 Ectopy: None EKG Initial EKG: Attestation: I personally reviewed and interpreted this EKG as follows: Interpretation: Sinus Rhythm and No Acute Injury Pattern Comments: Normal sinus rhythm rate 83 no acute signs of ND nor ischemia. Prior EKG tracings: not available for review Discharge Plan Triage Chief Complaint: Chest Pain ED Provider: Jarvis Gilbert Dx/Rx/DC Orders Clinical Impression: Chest pain, Diabetes, Acute hyperglycemia Instructions: ED Chest Pain, Uncertain Cause, Type 2 Diabetes Prescriptions: New metformin 500 mg tablet 500 mg PO BID Qty: 60 RF: 0 Primary Care Provider: Care Physician,No Primary Referrals: Erasmo Andino MD [STAFF PHYSICIAN] - As soon as possible Layla Gramajo [NON-STAFF] - As soon as possible Jonathan Pereira MD [NON-STAFF] - As soon as possible Care Physician,No Primary [Primary Care Provider] - Activity Restrictions/Additional Instructions: Follow-up with a local primary care physician. Your labs today were normal except for your elevated blood sugar of 404. Start the Metformin he will take it twice a day. Watch your blood sugars closely. You should be taking them at least twice a day. Call the local primary care physicians I referred you to see who is taking new patients. Disposition Disposition: Home, Self Care
[2021-05-20 19:48] VITALS: O2SAT 98
[2021-05-20 19:51] LABS: Absolute Lymphocyte Count 1.54 X10^3/uL (0.83-4.51); Absolute Neutrophil Count 3.2 X10^3/uL (2.0-7.7); Basophil# 0.02 X10^3/uL; Basophil% 0.4 % (0-1); Eosinophil# 0.07 X10^3/uL; Eosinophils% 1.4 % (0-5); Hematocrit 39.4 % (37-47); Hemoglobin 13.7 g/dL (12.0-15.0); Lymphocyte # 1.54 X10^3/ul (0.83-4.51); Mean Corp Hgb Conc 34.8 g/dL (32-36); Mean Corpuscular Hgb 30.7 pg (27.0-32.0); Mean Corpuscular Volume 88.3 fL (81-99); Monocyte# 0.31 X10^3/uL; NRBC Flagged by Analyzer 0 % (0-5); Neutrophil # 3.18 X10^3/uL (2.7-7.7); Neutrophil % 61.8 % (47-70); Platelet Count 245 K/mm3 (150-450); RBC Distribution Width CV 12.4 % (11.6-14.6); RBC Distribution Width SD 39.9 fl (35.1-43.9); Red Blood Count 4.46 M/mm3 (4.2-5.4); White Blood Count 5.1 K/mm3 (4.4-11.0)
--- NOTE | 2021-05-20 20:10 | RAD_ITS ---
INDICATION: chest pain EXAMINATION/TECHNIQUE: X-RAY - XR Chest 1 View COMPARISON: 12/26/2020 chest x-ray FINDINGS: LINES/DEVICES: None. LUNGS: Symmetric normal lung volumes. No airspace opacity or abnormal interstitial pattern. No nodule or mass. No pleural effusion or pneumothorax. MEDIASTINUM AND CARDIOVASCULAR STRUCTURES: Normal size and contour of the cardiomediastinal silhouette. No evidence of pulmonary vascular congestion. BONES AND SOFT TISSUES: No abnormality within limits of the exam. RAD/Chest 1 View (Portable) IMPRESSION: 1. No radiographic evidence of acute cardiopulmonary disease. Electronically Signed: John Hansen DO at 21:09 EST ,
[2021-05-20 20:18] LABS: Anion Gap 4 (5-15); BUN 12 mg/dL (7-18); BUN/Creat Ratio 15.9 RATIO (10-20); Calcium,Total 8.7 mg/dL (8.5-10.1); Chloride 103 mmol/L (98-107); Creatinine, Serum 0.75 mg/dL (0.55-1.02); EST Glomerular Filtration Rate 90 mL/min (>60); Est Glom Filt Rate - Afr Amer 109 mL/min (>60); Estimated Creatinine Clearance 81.66 ml/min; Glucose 404 mg/dL (74-106); Potassium 4.9 mmol/L (3.5-5.1); Sodium Level 134 mmol/L (136-145); Troponin-I HS 4 pg/mL (3.0-54.0)
[2021-05-20 21:24] VITALS: BP 117/74; PULSE 71
[2021-05-20] MEDS: metFORMIN (XR) 500 MG Tablet PO (21:27)
== END 2021-05-20 21:30 | disposition home or self-care (01) ==
PROVIDERS: Emergency Provider Emergency Medicine; Visit Provider Emergency Medicine
DX: R07.9 Chest pain, unspecified (principal); E11.65 Type 2 diabetes mellitus with hyperglycemia; F17.210 Nicotine dependence, cigarettes, uncomplicated; Z79.84 Long term (current) use of oral hypoglycemic drugs
CPT/HCPCS: 71045; 80048; 84484; 85025; 93005; 99285; A4216

== ENCOUNTER 2021-08-13 22:02 | Emergency (ER) | payer BC, SELFPAY ==
[2021-08-13 22:03] VITALS: BP 143/95; PULSE 88; RESP 15; TEMP 36.8; O2SAT 97; BMI 31.3
[2021-08-13 22:04] VITALS: BP 143/95; PULSE 88; RESP 15; TEMP 36.8; O2SAT 97
--- NOTE | 2021-08-13 22:39 | CT_ITS ---
STUDY: CT ABDOMEN AND PELVIS WITH CONTRAST REASON FOR EXAM: Female, 40 years old. Suprapubic abdominal pain for 2 hours. History of cervical cancer with radiation. History of previous colostomy and ileostomy. RADIATION DOSAGE (If Supplied By Facility): CTDIvol = ( 14.07 ) mGy, DLP = ( 794.16 ) mGycm TECHNIQUE: Transaxial images were obtained from the dome of the diaphragm to the symphysis pubis without oral contrast. IV 100mL Isovue-300 was administered. Sagittal and coronal images were reconstructed. Individualized dose optimization techniques were used for this CT. COMPARISON: 07/27/2018. FINDINGS: The visualized lung bases are unremarkable. The visualized portions of the heart are within normal limits. The liver appears prominent but uniform in density without obvious mass. Normal gallbladder and extrahepatic biliary system. Normal spleen. Normal pancreas. Normal bilateral adrenal glands. Normal right kidney. Normal left kidney. Normal visualized stomach. Normal small intestine. There is herniation of small bowel loops through a defect in the abdominal wall left lower quadrant which most likely represented a former ostomy site. There is no obstruction of the small bowel loops. There is surgical anastomosis in the proximal sigmoid colon. The colon appears otherwise unremarkable. There is non-visualization of the appendix. Normal abdominal aorta. There is an IVC filter in place. Normal retroperitoneum. Normal urinary bladder. Uterus is normal in size. There is prominence of the cervical lower uterine canal which appears filled with fluid and extends into the vaginal vault. There is no adnexal mass or pelvic lymphadenopathy. No free air is seen within the peritoneal cavity. Free fluid is seen in the right pelvis and along the right paracolic gutter. As stated there is herniation of small bowel in the left lower quadrant. It is also diastases of the rectus muscles in the upper abdomen with slight protrusion of the transverse colon. Again no obstruction is seen. Normal osseous structures. CT/Abdomen/Pelvis W IV Cont ONLY IMPRESSION: 1. Fluid in the lower uterine and cervical canal region. 2. Free fluid in the right pelvis and right paracolic gutter. 3. Surgical changes of the colon. 4. Stable hernia of small bowel in the left lower quadrant. 5. Prominent liver without acute abnormality. Electronically Signed: Tae Lee DO at 23:50 EDT Reading Location ID and State: [address] [place] [address] Tel [phone], Service support ,
--- NOTE | 2021-08-13 22:40 | ED.VIS.GI ---
HPI HPI - GI History of Present Illness Chief Complaint: Abd Pain Informant: patient Abdominal Pain/Flank Pain Onset: Today and Hours Context: Gradual Onset Timing: Continuous Location: - (Suprapubic abdominal pain only.) Current Severity: Mild Maximum Severity: Moderate Worsened by: Nothing Relieved by: Nothing Nausea/Vomiting/Emesis GI Symptom: Positive for Nausea; Negative for Vomiting Onset: Today Quality: Negative for Nonbilious Severity: Mild Diarrhea/Melena/Hematochezia GI Symptom: Negative for Diarrhea, Melena and Hematochezia Associated Symptoms Associated Symptoms: Positive for Hematuria; Negative for Dysuria, Frequency and Urgency Narrative Narrative: 40-year-old female history of diabetes, cervical cancer, ileostomy and colostomy with reversal's. States about 3 hours ago she developed suprapubic abdominal pain with nausea. Denies any vomiting. Intermittently in the past she has had constipation and diarrhea but not currently. Denies any dysuria but has had some mild hematuria. States she has had multiple urinary tract infections in the past but they usually do not cause this type of pain. She denies any fever or chills. No melena. Prior similar symptoms: No Recent Illness/Hospitalization: No PFSH PFSH Medical History Diabetes FHx: chemotherapy [place] filter in place Hernia Hx of cervical cancer Pulmonary embolism Smoker Home Medications metformin 500 mg PO BID #60 tab 05/20/21 [Rx Last Taken Unknown] ondansetron 4 mg PO Q6H PRN #7 tab 08/14/21 [Rx Last Taken Unknown] Allergy/AdvReac Type Severity Reaction Status Date / Time Penicillins AdvReac Nausea/Vom/ Verified 08/13/21 22:04 Diarrhea Surgical History History of embolic filter insertion Hx of colostomy Hx of ileostomy Social History Smoking Status: Current every day smoker tobacco type: cigarettes ROS ROS ED ROS Narrative Suprapubic abdominal pain. Nausea. Review of Systems ROS Unobtainable: Denies due to encephalopathy Constitutional Constitutional ED: Denies fever(s) ENT ENT ED: Denies ear pain Cardiovascular Cardiovascular: Denies chest pain Respiratory/Chest Respiratory/Chest: Denies dyspnea Gastrointestinal Gastrointestinal: Reports abdominal pain and nausea; Denies constipation, diarrhea or vomiting Genitourinary Genitourinary ED: Denies dysuria Musculoskeletal Musculoskeletal: Denies myalgias Integumentary Denies rash Neurologic Neurologic: Denies headache(s) Psychiatric Psychiatric: Denies depression Endocrine Endocrinology: Denies polyuria Hematologic/Lymphatic Hematologic/Lymphatic: Denies easy bruising Allergic/Immunologic Allergic/Immunologic ED: Denies urticaria EXAM Physical Exam Narrative Exam Narrative: 40-year-old female no acute distress. Vital signs stable and afebrile. H EENT exam unremarkable. Neck nontender. No lymphadenopathy. Lungs clear to auscultation. Heart regular rhythm no murmur. Abdomen soft, nontender, nondistended normal bowel sounds. No obvious hernia or mass. She points to suprapubic abdominal pain below her umbilicus but is not reproducible. I do not feel any hernia. No mass. No signs of trauma. Otherwise her abdominal exam is completely benign. Const Vital Signs: 08/13/21 22:03 08/13/21 22:04 Temperature 98.2 F 98.2 F Temperature Source Temporal Temporal Pulse Rate 88 88 Respiratory Rate 15 15 Blood Pressure 143/95 H 143/95 H Blood Pressure Mean 111 111 Pulse Ox 97 97 Oxygen Delivery Method Room Air Room Air Positive well nourished, well developed and obese; Negative for cachectic, contractures or unkempt General Appearance ED: well developed and NAD; Negative for unkempt, cachectic, contractures or pallor Nutritional Appearance: obese; Negative for cachectic HEENT Reports moist mucous membranes normocephalic and atraumatic Eyes PERRL and EOMs intact bilaterally Neck no lymphadenopathy, supple and no JVD General: Negative for tenderness Resp normal respiratory effort and clear to auscultation bilaterally Auscultation: Negative for rales, rhonchi or wheezes Cardio regular rate, regular rhythm, S1 normal heart sound, S2 normal heart sound and no murmurs GI non-tender, non-distended and no masses Auscultation: normoactive bowel sounds Palpation: soft; Negative for tender, guarding or rigid Back/Spine no CVA tenderness General Back: Negative for CVA tenderness Extremity full ROM General Extremety ED: Negative for edema or tenderness General Extremity: Negative for edema Neuro moves all extremities Sensorium / Orientation: alert, oriented to person, oriented to place and oriented to time; Negative for orientation impaired, confused, lethargic or stuporous Motor Exam: strength 5/5 throughout Psych mental status grossly normal and thought process normal Appearance: Negative for unkempt Skin no wounds General Skin Exam: Negative for jaundice or pallor Lesions: no lesions Rashes: no rashes MDM MDM MDM Narrative Medical decision making narrative: 40-year-old female prior cervical CA years ago when she had radiation therapy. Due to complications of radiation needed a colostomy with reversal and ileostomy with reversal. Has known abdominal hernias. Tonight complaining of suprapubic pain. Abdomen is benign. CAT scan labs are pending. IV Zofran for nausea. She did not want anything for pain. Repeat exam at 11:59 PM. Patient doing well. She was treated with IV Toradol and Zofran for pain and nausea earlier. Currently her abdomen and pelvis are benign. We discussed her test results primarily the CT findings. She will follow-up with her [facility] at the [facility]. Lab Data Attestation: I reviewed the patient's lab results. Lab results narrative: CBC is unremarkable with a normal white count of 9. H&H is 13 and 40. Electrolytes unremarkable gap is 6. Normal BUN and creatinine. Glucose of 304 patient is a known diabetic. Serum test negative. Urinalysis shows blood on the macroscopic sample. However there is no white or red cells on the microscopic sample. No nitrites. Only rare bacteria. CAT scan is read by the radiologist shows uterine fluid and fluid in the paracolic gutter. Also a stable hernia. Labs: Laboratory Results - last 24 hr 08/13/21 08/13/21 08/13/21 22:20 22:20 22:20 WBC 9.3 RBC 4.49 Hgb 13.5 Hct 40.5 MCV 90.2 MCH 30.1 MCHC 33.3 RDW Std Deviation 40.7 RDW Coeff of Jennifer 12.3 Plt Count 280 MPV 9.3 Immature Gran % (Auto) 0.500 Neut % (Auto) 77.0 H Lymph % (Auto) 15.9 L [place] % (Auto) 5.3 Eos % (Auto) 1.0 Baso % (Auto) 0.3 Absolute Neuts (auto) 7.1 Absolute Lymphs (auto) 1.47 Nucleated RBC % 0 Sodium 137 Potassium 4.0 Chloride 104 Carbon Dioxide 27.0 Anion Gap 6 BUN 15 Creatinine 0.66 Estim Creat Clear Calc 92.79 Est GFR (MDRD) Af Amer 127 Est GFR (MDRD) Non-Af 105 BUN/Creatinine Ratio 22.9 H Glucose 304 H Calcium 8.9 Serum , Qual NEGATIVE Urine Color Urine Clarity Urine pH Ur Specific [place] Urine Protein Urine Glucose (UA) Urine Ketones Urine Occult Blood Urine Nitrite Urine Bilirubin Urine Urobilinogen Ur Leukocyte Esterase Urine RBC Urine WBC Ur Squamous Epith Cells Urine Bacteria Urine Mucus 08/13/21 22:20 WBC RBC Hgb Hct MCV MCH MCHC RDW Std Deviation RDW Coeff of Jennifer Plt Count MPV Immature Gran % (Auto) Neut % (Auto) Lymph % (Auto) [place] % (Auto) Eos % (Auto) Baso % (Auto) Absolute Neuts (auto) Absolute Lymphs (auto) Nucleated RBC % Sodium Potassium Chloride Carbon Dioxide Anion Gap BUN Creatinine Estim Creat Clear Calc Est GFR (MDRD) Af Amer Est GFR (MDRD) Non-Af BUN/Creatinine Ratio Glucose Calcium Serum , Qual Urine Color Yellow Urine Clarity Clear Urine pH 6.0 Ur Specific [place] 1.020 Urine Protein Negative Urine Glucose (UA) 1000 H Urine Ketones Negative Urine Occult Blood 250 H Urine Nitrite Negative Urine Bilirubin Negative Urine Urobilinogen Normal Ur Leukocyte Esterase 25 H Urine RBC 0-5 SEEN Urine WBC 0 SEEN Ur Squamous Epith Cells 0-5 SEEN Urine Bacteria RARE Urine Mucus 0 SEEN Radiography Diagnostic Testing: Clinical Impression(s) from Imaging Studies Abdomen/Pelvis CT 08/13/21 22:39 IMPRESSION: 1. Fluid in the lower uterine and cervical canal region. 2. Free fluid in the right pelvis and right paracolic gutter. 3. Surgical changes of the colon. 4. Stable hernia of small bowel in the left lower quadrant. 5. Prominent liver without acute abnormality. Electronically Signed: Tae Lee DO at 23:50 EDT Reading Location ID and State: [facility] / [place] Tel [phone], Service support , Discharge Plan Triage Chief Complaint: Abd Pain ED Provider: Jarvis Gilbert Dx/Rx/DC Orders Clinical Impression: Pelvic pain, Hx of cervical cancer Instructions: ED Pelvic Pain, Unknown Cause Prescriptions: New ondansetron 4 mg tablet,disintegrating 4 mg PO Q6H PRN (Reason: nausea and vomiting) Qty: 7 RF: 0 No Action metformin 500 mg tablet 500 mg PO BID Qty: 60 RF: 0 Primary Care Provider: Care Physician,No Primary Referrals: Care Physician,No Primary [Primary Care Provider] - Activity Restrictions/Additional Instructions: Motrin and Tylenol for pain. Zofran as needed for nausea. Follow-up with your [facility] for further evaluation. The pain may be from a ruptured ovarian cyst that may be why you had fluid in your pelvis. There is also fluid noted in your uterus and cervix. Which may be chronic from your prior history. Disposition Disposition: Home, Self Care
[2021-08-13] MEDS: Ondansetron 4 MG/2 ML Vial IV (22:48)
[2021-08-13 22:54] LABS: Mucous, Urine 0 SEEN /hpf (<or=2+); White Blood Cells 0 SEEN /hpf (0-5)
[2021-08-13 23:00] LABS: Absolute Lymphocyte Count 1.47 X10^3/uL (0.83-4.51); Absolute Neutrophil Count 7.1 X10^3/uL (2.0-7.7); Basophil# 0.03 X10^3/uL; Basophil% 0.3 % (0-1); Eosinophil# 0.09 X10^3/uL; Hematocrit 40.5 % (37-47); Hemoglobin 13.5 g/dL (12.0-15.0); Lymphocyte # 1.47 X10^3/ul (0.83-4.51); Lymphocyte % 15.9 % (19-41); Mean Corp Hgb Conc 33.3 g/dL (32-36); Mean Corpuscular Hgb 30.1 pg (27.0-32.0); Mean Corpuscular Volume 90.2 fL (81-99); Mean Platelet Vol. 9.3 fl (6.2-12.0); Monocyte# 0.49 X10^3/uL; Monocyte% 5.3 % (0-10); NRBC Flagged by Analyzer 0 % (0-5); Neutrophil # 7.12 X10^3/uL (2.7-7.7); Platelet Count 280 K/mm3 (150-450); RBC Distribution Width CV 12.3 % (11.6-14.6); RBC Distribution Width SD 40.7 fl (35.1-43.9); Red Blood Count 4.49 M/mm3 (4.2-5.4); White Blood Count 9.3 K/mm3 (4.4-11.0)
[2021-08-13 23:04] LABS: Internal QC Validated? YES +Cl - CLEAR BKGD; Pregnancy, Serum, hCG Quali. NEGATIVE Negative
[2021-08-13 23:10] LABS: Anion Gap 6 (5-15); BUN 15 mg/dL (7-18); BUN/Creat Ratio 22.9 RATIO (10-20); Calcium,Total 8.9 mg/dL (8.5-10.1); Chloride 104 mmol/L (98-107); Creatinine, Serum 0.66 mg/dL (0.55-1.02); EST Glomerular Filtration Rate 105 mL/min (>60); Est Glom Filt Rate - Afr Amer 127 mL/min (>60); Estimated Creatinine Clearance 92.79 ml/min; Glucose 304 mg/dL (74-106); Sodium Level 137 mmol/L (136-145)
[2021-08-13 23:14] LABS: Color, Urine Yellow (Yellow); Glucose, Dipstick 1000 mg/dl (Normal); Ketone-Dipstick Negative (Negative); Leukocyte Esterase-Dipstick 25 /ul (Negative); Nitrite-Dipstick Negative (Negative); Occult Blood-Urine 250 /ul (Negative); Protein-Dipstick Negative (Negative); Urine Bilirubin Dipstick Negative (Negative); Urine Clarity Clear (Clear); Urine Urobilinogen Normal (Normal)
[2021-08-13 23:28] LABS: Bacteria RARE /hpf (None Seen); Red Blood Cells-Urine 0-5 SEEN /hpf (0-5); Squamous Epithelial Cells - UA 0-5 SEEN /hpf (5-10)
[2021-08-13] MEDS: Ketorolac 30 MG/ML Syringe IV (23:30)
[2021-08-14 00:15] VITALS: BP 132/75; PULSE 80; RESP 16; O2SAT 97
== END 2021-08-14 00:16 | disposition home or self-care (01) ==
PROVIDERS: Emergency Provider Emergency Medicine; Visit Provider Emergency Medicine
DX: R11.2 Nausea with vomiting, unspecified (principal); E11.9 Type 2 diabetes mellitus without complications; R10.2 Pelvic and perineal pain; F17.210 Nicotine dependence, cigarettes, uncomplicated; R31.9 Hematuria, unspecified; R19.7 Diarrhea, unspecified; K92.1 Melena; Z85.41 Personal history of malignant neoplasm of cervix uteri
CPT/HCPCS: 74177; 80048; 81001; 84703; 85025; 96374; 96375; 99282; Q9967; A4216; J2405

== ENCOUNTER 2021-10-31 21:09 | Emergency (ER) | payer BC, SELFPAY ==
[2021-10-31 21:10] VITALS: BP 119/91; PULSE 117; RESP 16; TEMP 36.4; O2SAT 98; BMI 28.5
[2021-10-31 21:12] VITALS: BP 119/91; PULSE 117; RESP 16; TEMP 36.4; O2SAT 98
--- NOTE | 2021-10-31 21:31 | EX.ED.DYSGE1 ---
HPI History of Present Illness Chief Complaint: Wound Informant: patient Narrative Narrative: Patient had abdominal surgery on October 19 at the [facility]. She had 2 hernias repaired and some scar tissue removed. She has a large midline incision with [address] Patient states that she has been having trouble standing up straight since her surgery feel like the wound is pulling. Today she had serosanguineous drainage from the wound. She denies fever or chills. She goes back to see her surgeon on the . PFSH PFSH Medical History Diabetes FHx: chemotherapy [place] filter in place Hernia Hx of cervical cancer Pulmonary embolism Smoker Home Medications metformin 500 mg tablet 500 mg PO BID #60 tabs 05/20/21 [Rx Last Taken Unknown] ondansetron 4 mg disintegrating tablet 4 mg PO Q6H PRN nausea and vomiting #7 tabs 08/14/21 [Rx Last Taken Unknown] Allergy/AdvReac Type Severity Reaction Status Date / Time Penicillins AdvReac Nausea/Vom/ Verified 10/31/21 21:12 Diarrhea Surgical History History of embolic filter insertion Hx of colostomy Hx of ileostomy Social History Smoking Status: Current some day smoker tobacco type: cigarettes ROS ROS ED Constitutional Constitutional ED: Denies chills or fever(s) Eyes Eyes: Denies change in vision or discharge from eye(s) ENT ENT ED: Denies discharge from eye(s), rhinorrhea or sore throat Cardiovascular Cardiovascular: Denies chest pain or palpitations Respiratory/Chest Respiratory/Chest: Denies cough or dyspnea Gastrointestinal Gastrointestinal: Reports abdominal pain; Denies diarrhea, nausea or vomiting Genitourinary Genitourinary ED: Denies difficulty urinating or dysuria Musculoskeletal Musculoskeletal: Denies back pain or extremity pain Integumentary Denies Abrasions or rash Neurologic Neurologic: Denies headache(s) or weakness Psychiatric Psychiatric: Denies anxiety or depression Allergic/Immunologic Allergic/Immunologic ED: Denies lip swelling or urticaria EXAM Physical Exam Const Vital Signs: 10/31/21 21:10 10/31/21 21:12 Temperature 97.6 F L 97.6 F L Temperature Source Oral Oral Pulse Rate 117 H 117 H Respiratory Rate 16 16 Blood Pressure 119/91 H 119/91 H Blood Pressure Mean 100 100 Pulse Ox 98 98 Oxygen Delivery Method Room Air Room Air Positive well nourished and well developed General Appearance ED: well developed HEENT Reports normocephalic and head/scalp atraumatic Eyes PERRL and EOMs intact bilaterally Neck supple Chest Wall inspection of chest normal and palpation of chest normal Resp normal respiratory effort and clear to auscultation bilaterally Cardio regular rate and regular rhythm GI GI Narrative: Large vertical midline surgical incision. No obvious wound dehiscence. No palpable abscess or fluid collection at this time. Drains are noted both on the right and left side of the wound. No sign of surrounding wound infection. Palpation: soft Extremity normal to inspection Neuro oriented x3 and no sensory deficits noted Sensorium / Orientation: alert Motor Exam: strength 5/5 throughout Psych mental status grossly normal MDM MDM MDM Narrative Medical decision making narrative: Lab work obtained along with CT scan of the abdomen and pelvis. Wounds are cleansed and redressed. Lab Data Attestation: I reviewed the patient's lab results. Labs: Laboratory Results - last 24 hr 10/31/21 10/31/21 21:45 21:45 WBC 6.0 RBC 3.81 L Hgb 11.5 L Hct 33.6 L MCV 88.2 MCH 30.2 MCHC 34.2 RDW Std Deviation 39.7 RDW Coeff of Jennifer 12.3 Plt Count 469 H MPV 8.7 Immature Gran % (Auto) 0.700 Neut % (Auto) 65.6 Lymph % (Auto) 23.5 [place] % (Auto) 6.5 Eos % (Auto) 3.2 Baso % (Auto) 0.5 Absolute Neuts (auto) 3.9 Absolute Lymphs (auto) 1.40 Nucleated RBC % 0 Sodium 135 L Potassium 3.9 Chloride 102 Carbon Dioxide 29.0 Anion Gap 4 L BUN 14 Creatinine 0.71 Estim Creat Clear Calc 85.39 Est GFR (MDRD) Af Amer 116 Est GFR (MDRD) Non-Af 96 BUN/Creatinine Ratio 19.6 Glucose 317 H Calcium 9.0 Radiography Diagnostic Testing: Clinical Impression(s) from Imaging Studies Abdomen/Pelvis CT 10/31/21 22:22 IMPRESSION: Multiple anastomotic sutures involving colon, multiple areas of mildly distended small bowel with intervening loops of collapsed bowel and hazy fat planes around the small bowel and slight stranding density in the right and left pericolic gutters. These findings may be due to recent surgery or possibly associated with radiation therapy. No definite obstruction. Extensive postsurgical changes anterior abdominal wall with no focal, drainable fluid collection or evidence of hematoma. Obscuration of subcutaneous fat adjacent to the anterior abdominal wall likely normal postsurgical changes. Mild hepatosplenomegaly. No varices. Electronically Signed: John Wilderamilcar, DO at 23:15 EDT , Treatment and Re-Evaluation Narrative: Lab work is unremarkable other than a glucose of 317. CT scan reveals postsurgical changes but no evidence of acute bowel obstruction or fluid collection. Clinically I believe the patient had a serosanguineous fluid collection that drained through her midline incision. There is no sign of wound infection. She will be discharged home to follow-up with her surgeon as scheduled. Discharge Plan Triage Chief Complaint: Wound ED Provider: Ana Luisa Ruelas Dx/Rx/DC Orders Clinical Impression: Encounter for post surgical wound check Instructions: ED Post Op Wound Check, General Prescriptions: No Action metformin 500 mg tablet 500 mg PO BID Qty: 60 0RF ondansetron 4 mg tablet,disintegrating 4 mg PO Q6H PRN (Reason: nausea and vomiting) Qty: 7 0RF Primary Care Provider: Care Physician,No Primary Referrals: Care Physician,No Primary [Primary Care Provider] - Activity Restrictions/Additional Instructions: Follow-up with your surgeon as scheduled. Disposition Disposition: Home, Self Care
[2021-10-31 22:00] LABS: Absolute Neutrophil Count 3.9 X10^3/uL (2.0-7.7); Basophil# 0.03 X10^3/uL; Basophil% 0.5 % (0-1); Eosinophil# 0.19 X10^3/uL; Eosinophils% 3.2 % (0-5); Hematocrit 33.6 % (37-47); Hemoglobin 11.5 g/dL (12.0-15.0); Lymphocyte % 23.5 % (19-41); Mean Corp Hgb Conc 34.2 g/dL (32-36); Mean Corpuscular Hgb 30.2 pg (27.0-32.0); Mean Corpuscular Volume 88.2 fL (81-99); Mean Platelet Vol. 8.7 fl (6.2-12.0); Monocyte# 0.39 X10^3/uL; Monocyte% 6.5 % (0-10); NRBC Flagged by Analyzer 0 % (0-5); Neutrophil # 3.91 X10^3/uL (2.7-7.7); Neutrophil % 65.6 % (47-70); Platelet Count 469 K/mm3 (150-450); RBC Distribution Width CV 12.3 % (11.6-14.6); RBC Distribution Width SD 39.7 fl (35.1-43.9); Red Blood Count 3.81 M/mm3 (4.2-5.4)
[2021-10-31 22:13] LABS: Anion Gap 4 (5-15); BUN 14 mg/dL (7-18); BUN/Creat Ratio 19.6 RATIO (10-20); Chloride 102 mmol/L (98-107); Creatinine, Serum 0.71 mg/dL (0.55-1.02); EST Glomerular Filtration Rate 96 mL/min (>60); Est Glom Filt Rate - Afr Amer 116 mL/min (>60); Estimated Creatinine Clearance 85.39 ml/min; Glucose 317 mg/dL (74-106); Potassium 3.9 mmol/L (3.5-5.1); Sodium Level 135 mmol/L (136-145)
--- NOTE | 2021-10-31 22:22 | CT_ITS ---
INDICATION: post op wound drainage EXAMINATION: CT ABDOMEN AND PELVIS WITH CONTRAST - CT Abdomen And Pelvis W/ Contrast Injection TECHNIQUE: Helically acquired images were obtained of the abdomen and pelvis following IV contrast. A radiation dose optimization technique was used for this scan. IV Contrast dosage and agent: Oral contrast: None. COMPARISON: A roughly 10/10/[address] 07/27/2018 CT of the abdomen and pelvis. FINDINGS: LOWER CHEST: Lung bases are clear. No cardiomegaly or pericardial effusion. LIVER: Mildly enlarged. No focal mass. GALLBLADDER AND BILIARY TREE: No calcified gallstones. No gallbladder distension or wall edema. No intra- or extrahepatic biliary ductal dilation. PANCREAS: No focal cystic or solid mass. SPLEEN: Mildly enlarged. ADRENAL GLANDS: No nodules. KIDNEYS, URETERS and BLADDER: Normal renal size and position. No mass. No hydronephrosis. Bladder is unremarkable. PERITONEUM: Small amount of fluid in the right and left pericolic gutter. Trace fluid in the pelvis with hazy fat planes suggesting prior surgery. No focal fluid collection. No free air. BOWEL: Duodenal jejunal junction as anastomotic sutures. Sutures in the distal colon and in small bowel loops in the left midabdomen. There is areas of mild, focal bowel distention are present. Multiple small bowel loops appear adherent to the anterior abdominal wall. These may represent adhesions. No obstruction. Hazy fat planes seen around most small bowel loops in the abdomen and pelvis. LYMPH NODES: No enlarged mesenteric or retroperitoneal lymph nodes. VESSELS: Aorta is non-dilated. Infrarenal IVC filter noted. REPRODUCTIVE ORGANS: Within normal limits ABDOMINAL WALL: Surgical clips seen around bowel loops at the level of the distal duodenum proximal jejunum, and the sigmoid colon region and in small bowel loops in the left mid abdomen. These are unchanged compared to prior exam. Multiple bowel loops. Here to the anterior abdominal wall suggesting possible adhesions. FEMALE PELVIC ORGANS: Enhancing uterine. Cervical region not well delineated. Ovaries not visualized. No pelvic lymphadenopathy. OSSEOUS STRUCTURES: No lytic or blastic abnormality. CT/Abdomen/Pelvis W IV Cont ONLY IMPRESSION: Multiple anastomotic sutures involving colon, multiple areas of mildly distended small bowel with intervening loops of collapsed bowel and hazy fat planes around the small bowel and slight stranding density in the right and left pericolic gutters. These findings may be due to recent surgery or possibly associated with radiation therapy. No definite obstruction. Extensive postsurgical changes anterior abdominal wall with no focal, drainable fluid collection or evidence of hematoma. Obscuration of subcutaneous fat adjacent to the anterior abdominal wall likely normal postsurgical changes. Mild hepatosplenomegaly. No varices. Electronically Signed: John Hansen DO at 23:15 EDT ,
[2021-10-31 23:55] VITALS: BP 126/74; PULSE 102; RESP 16; O2SAT 98
== END 2021-10-31 23:58 | disposition home or self-care (01) ==
PROVIDERS: Emergency Provider Emergency Medicine; Visit Provider Emergency Medicine
DX: Z48.00 Encounter for change or removal of nonsurgical wound dressing (principal); E11.9 Type 2 diabetes mellitus without complications; F17.210 Nicotine dependence, cigarettes, uncomplicated; Z85.41 Personal history of malignant neoplasm of cervix uteri
CPT/HCPCS: 74177; 80048; 85025; 99284; Q9967; A4216

== ENCOUNTER 2021-11-16 23:37 | Emergency (ER) | payer BC, SELFPAY ==
[2021-11-16 23:40] VITALS: BP 108/76; PULSE 84; RESP 16; TEMP 35.9; O2SAT 99; BMI 31.2
--- NOTE | 2021-11-17 00:48 | EDS_ITS ---
HPI History of Present Illness Chief Complaint: Wound Detail of Chief Complaint: Wound check after having ventral hernia repairs done at the [facility] Informant: patient Onset/Context/Timing Onset: Weeks Context: Gradual Onset Timing: Continuous Current Severity: Mild Maximum Severity: Mild Narrative Narrative: 41-year-old female history of cervical cancer years ago that was cured. History of diabetes and prior colostomy and ileostomy with reversal. She has had 2 ventral hernias that were repaired at the [facility] around October 19 she was hospitalized for around 3 to 4 days. Developed a postop wound abscess that was drained at [facility]. And is concerned about how that is healing and also the lower part of the incision she has had for 2 to 3 weeks has had an area of mild swelling. She denies any fever. She urinating and moving her bowels well. Prior similar symptoms: Yes Recent Illness/Hospitalization: Yes PFSH PFSH Medical History Diabetes FHx: chemotherapy Former smoker Jackson filter in place Hernia Hx of cervical cancer Pulmonary embolism Smoker Home Medications metformin 500 mg tablet 500 mg PO BID #60 tabs 05/20/21 [Rx Last Taken Unknown] ondansetron 4 mg disintegrating tablet 4 mg PO Q6H PRN nausea and vomiting #7 tabs 08/14/21 [Rx Last Taken Unknown] Allergy/AdvReac Type Severity Reaction Status Date / Time Penicillins AdvReac Nausea/Vom/ Verified 10/31/21 21:12 Diarrhea Surgical History History of embolic filter insertion History of hernia repair Hx of colostomy Hx of ileostomy Social History Smoking Status: Current some day smoker tobacco type: cigarettes ROS ROS ED ROS Narrative No recent illness. Review of Systems ROS Unobtainable: Denies due to encephalopathy Constitutional Constitutional ED: Denies fever(s) Eyes Eyes: Denies blurry vision ENT ENT ED: Denies ear pain Cardiovascular Cardiovascular: Denies chest pain Respiratory/Chest Respiratory/Chest: Denies cough Gastrointestinal Gastrointestinal: Denies abdominal pain, constipation, diarrhea, melena, nausea or vomiting Genitourinary Genitourinary ED: Denies dysuria Musculoskeletal Musculoskeletal: Denies arthralgias Integumentary Reports abscess Neurologic Neurologic: Denies headache(s) Psychiatric Psychiatric: Denies anxiety Endocrine Endocrinology: Denies cold intolerance Hematologic/Lymphatic Hematologic/Lymphatic: Reports none Allergic/Immunologic Allergic/Immunologic ED: Denies mouth swelling or tongue swelling EXAM Physical Exam Narrative Exam Narrative: 41-year-old female no acute distress. Vital signs stable afebrile. HEENT exam unremarkable. Moist Riis membranes. Lungs are clear. Heart regular rate and rhythm. Abdomen soft, nontender, nondistended normal bowel sounds no peritoneal signs. She has a long vertical incision entire length her abdomen from her epigastric region down to her suprapubic region. It is healing well. She had an area that was I&D need several weeks ago at my [facility]. It is healing. There is currently no signs of infection. No cellulitis or discharge. I explained to her that would take months to heal. The distal end of the wound there is a small area of fluctuance that could be a cyst or even an early abscess. She has since been there for 2 to 3 weeks has been no significant change. There is no cellulitis. Is not particularly tender. Otherwise her abdomen is nontender without any signs of obstruction. Legs are unremarkable. Moving all 4 extremities. No edema. Neurologically she is awake alert. Const Vital Signs: 11/16/21 23:40 11/16/21 23:40 Temperature 96.6 F L 96.6 F L Temperature Source Temporal Temporal Pulse Rate 84 84 Respiratory Rate 16 16 Blood Pressure 108/76 108/76 Blood Pressure Mean 86 86 Pulse Ox 99 99 Oxygen Delivery Method Room Air Room Air Positive well developed and obese; Negative for cachectic, contractures or unkempt General Appearance ED: well developed and NAD; Negative for unkempt, cachectic, contractures, cyanotic or diaphoretic Nutritional Appearance: obese; Negative for cachectic HEENT Reports moist mucous membranes; Denies dry mucous membranes Negative for trauma or tenderness Mouth ED: No dry mucous membranes Mouth: No dry mucous membranes Eyes PERRL and EOMs intact bilaterally General Eye ED: Negative for pale conjunctiva or scleral icterus Neck no lymphadenopathy, supple and no JVD General: Negative for tenderness Lymph Lymphatic: Negative for other Chest Wall inspection of chest normal and palpation of chest normal Chest: Negative for other Resp normal respiratory effort and clear to auscultation bilaterally Effort and Inspection: Negative for retractions Auscultation: Negative for rales, rhonchi or wheezes Cardio regular rate, regular rhythm, S1 normal heart sound, S2 normal heart sound and no murmurs Palpation: Negative for palpable S3 Rate: Negative for bradycardia Rhythm: Negative for abnormal rhythm GI normal to inspection, nondistended, normoactive bowel sounds, non-tender, non- distended and no masses GI Narrative: Well-healing midline surgical incision. On the proximal end it had been I&D for an abscess which is healing but will take some time to close. No current infection. On the distal end there is a small fluid-filled sac that could be a small abscess or seroma or fluid collection. It does not need to be I&D at this time. She will need to be evaluated by her surgeons. Inspection: Negative for abdominal distention Auscultation: normoactive bowel sounds Palpation: soft; Negative for tender, guarding, mass or rebound tenderness present Back/Spine no CVA tenderness Psych mental status grossly normal Appearance: Negative for unkempt Attitude: No agitated Mood & Affect: Negative for depressed Skin no rashes or lesions noted and no wounds Lesions: No lesion noted Rashes: No rashes noted Wounds: Negative for wounds noted MDM MDM MDM Narrative Medical decision making narrative: 41-year-old female postop large abdominal vertical incision for ventral hernia repairs. Had a prior I&D of an abscess in the proximal end. As a fluid collection in the distal end which could be an early abscess, versus a cyst or seroma. She is instructed to follow-up with her [facility] surgeons. Her vital signs are stable she is afebrile. She does not need anything else done tonight. Discharge Plan Triage Chief Complaint: Wound ED Provider: Jarvis Gilbert Dx/Rx/DC Orders Clinical Impression: Encounter for post surgical wound check, History of diabetes mellitus, Hx of cervical cancer Prescriptions: No Action metformin 500 mg tablet 500 mg PO BID Qty: 60 0RF ondansetron 4 mg tablet,disintegrating 4 mg PO Q6H PRN (Reason: nausea and vomiting) Qty: 7 0RF Primary Care Provider: Care Physician,No Primary Referrals: Yris Bowden MD [Med Staff - Active Staff] - As soon as possible (Try to call [facility] and follow-up with them first if you cannot get into see his surgeon at the [facility] to recheck your postoperative surgical site then try the [facility] Dr. Yris Bowden.) Care Physician,No Primary [Primary Care Provider] - Activity Restrictions/Additional Instructions: Your surgical wound is actually healing well. The area of the open up the abscess is healing and is not currently infected but will take months to heal and close back up and has to heal from the inside out. The lower area on your incision could be an early abscess or a cyst. Follow-up with your general surgeons at the [facility] to have that evaluated to decide if they want to drain it. If they cannot get you in a will not see you for a lengthy period of time you can try to follow-up with the [facility] surgeons here in [place]. Disposition Disposition: Home, Self Care
== END 2021-11-17 01:05 | disposition home or self-care (01) ==
PROVIDERS: Emergency Provider Emergency Medicine; Visit Provider Emergency Medicine
DX: Z48.01 Encounter for change or removal of surgical wound dressing (principal); E11.9 Type 2 diabetes mellitus without complications; K43.9 Ventral hernia without obstruction or gangrene; F17.200 Nicotine dependence, unspecified, uncomplicated; Z85.41 Personal history of malignant neoplasm of cervix uteri
CPT/HCPCS: 99281

== ENCOUNTER 2021-11-21 22:37 | Emergency (ER) | payer BC, SELFPAY ==
[2021-11-21 22:39] VITALS: BP 132/77; PULSE 99; RESP 16; TEMP 36.7; O2SAT 99; BMI 30.1
--- NOTE | 2021-11-21 22:48 | EDS_ITS ---
HPI History of Present Illness Chief Complaint: Wound Check Narrative Narrative: 41-year-old female here for concern for wound check. History of DVT, diabetes, history of colostomy and ileostomy with reversal. Ventral hernia status postrepair. The patient states for the last several days she has had increased drainage that she describes as pus. She notes red, yellow serosanguineous drainage that is constant, severe without alleviating factors. Denies any fever but does note fatigue and nausea. Denies any significant pain. She is concerned that she may be developing an abscess. Old chart reviewed: Multiple recent visits for wound checks PFSH PFS Medical History Diabetes FHx: chemotherapy Former smoker Jackson filter in place Hernia Hx of cervical cancer Pulmonary embolism Smoker Home Medications metformin 500 mg tablet 500 mg PO BID #60 tabs 05/20/21 [Rx Last Taken Unknown] ondansetron 4 mg disintegrating tablet 4 mg PO Q6H PRN nausea and vomiting #7 tabs 08/14/21 [Rx Last Taken Unknown] cephalexin 500 mg capsule 500 mg PO TID 7 days #21 caps 11/22/21 [Rx Last Taken Unknown] sulfamethoxazole 800 mg-trimethoprim 160 mg tablet (Bactrim DS) 1 tab PO BID 7 days #14 tabs 11/22/21 [Rx Last Taken Unknown] Allergy/AdvReac Type Severity Reaction Status Date / Time Penicillins AdvReac Nausea/Vom/ Verified 11/21/21 22:38 Diarrhea Surgical History History of embolic filter insertion History of hernia repair Hx of colostomy Hx of ileostomy Social History Smoking Status: Current some day smoker tobacco type: cigarettes ROS ROS ED Constitutional Constitutional ED: Denies fever(s) Eyes Eyes: Denies other visual disturbances ENT ENT ED: Denies ear pain Cardiovascular Cardiovascular: Denies chest pain Respiratory/Chest Respiratory/Chest: Denies dyspnea Gastrointestinal Gastrointestinal: Denies abdominal pain Genitourinary Genitourinary ED: Denies dysuria Musculoskeletal Musculoskeletal: Denies joint pain Integumentary Reports wounds; Denies rash Neurologic Neurologic: Denies dizziness, focal weakness, numbness, syncope or weakness Psychiatric Psychiatric: Denies homicidal ideation or suicidal ideation EXAM Physical Exam Narrative Exam Narrative: Nursing triage notes reviewed, Vital signs reviewed Constitutional: please see [facility] HENT: MMM Eyes: Pupils equal round and reactive to light, Extraocular muscles intact Neck: No stridor, no JVD, full neck ROM Lungs: Clear to auscultation, No wheezing or rales. No increased work of breathing, no conversational dyspnea, no accessory muscle use, no nasal flaring. No respiratory distress noted Heart: Regular rate and rhythm, No murmurs, No rubs and No gallops, 2+ distal pulses (radial, femoral, posterior tibial) in all extremities Abdomen: Soft, there is no tenderness, rigidity, rebound or guarding, no obvious peritoneal signs, no palpable pulsatile abdominal masses, no auscultated abdominal bruit. Wounds well-healed, clean dry intact, there is wound dehiscence noted at the superior portion. There is also wound dehiscence noted inferiorly. There is no obvious purulent drainage, no obvious overlying cellulitis. No crepitus or bullae noted. Abdomen with some nondescript nodularity as well. : No CVAT Extremities: No edema Neuro: No focal neurological deficits, cranial nerves II through XII intact, 5/5 strength in all extremities. Intact sensation to light touch in all extremities, 2+ reflexes bilateral patella dens. Normal gait. No ataxia. Skin: As per abdominal exam, no crepitus bullae or pain on proportion to exam noted. Const Vital Signs: 11/21/21 22:39 Temperature 98.0 F Temperature Source Temporal Pulse Rate 99 Respiratory Rate 16 Blood Pressure 132/77 H Blood Pressure Mean 95 Pulse Ox 99 Oxygen Delivery Method Room Air [facility] Narrative Medical decision making narrative: 41-year-old female here with concern for wound dehiscence, abdominal abscess status post ventral hernia repair on October 19. The patient was hemodynamically stable, afebrile, nontoxic-appearing. Abdominal exam was benign. I obtained a CT scan which showed evidence of superficial abdominal wall abscess. Patient's labs are reassuring with no leukocytosis, anion gap. No need for ED incision an d drainage as patient's wound was already draining. Patient was started on oral antibiotics with instructions to follow-up with her surgeon for reevaluation and further management. Patient expressed understanding agreed to plan. Lab Data Labs: Laboratory Results - last 24 hr 11/21/21 11/21/21 23:44 23:44 WBC 4.8 RBC 3.87 L Hgb 11.3 L Hct 34.9 L MCV 90.2 MCH 29.2 MCHC 32.4 RDW Std Deviation 42.3 RDW Coeff of Jennifer 13.0 Plt Count 241 MPV 9.0 Sodium 137 Potassium 3.9 Chloride 105 Carbon Dioxide 29.0 Anion Gap 3 L BUN 9 Creatinine 0.56 Estim Creat Clear Calc 108.26 Est GFR (MDRD) Af Amer 151 Est GFR (MDRD) Non-Af 125 BUN/Creatinine Ratio 16.0 Glucose 291 H Calcium 8.7 Radiography Diagnostic Testing: Clinical Impression(s) from Imaging Studies Abdomen/Pelvis CT 11/21/21 23:17 IMPRESSION: A small amount of free fluid in the abdomen near the liver with nonspecific rounded cystic structure adjacent to the lower edge of the liver that has increased in size since 07/18/2020, it measured previously 1.7 cm now measures 3.2 cm in diameter. There is a small fluid collection in the upper anterior abdominal wall at the incision measuring approximately 8 x 2 x 1.6 cm containing air bubbles and is consistent with an abscess. Electronically Signed: Constance Mclean MD at 0:59 EDT , Discharge Plan Triage Chief Complaint: Wound Check ED Provider: Roberto Arango Dx/Rx/DC Orders Clinical Impression: Abscess of postoperative wound of abdominal wall, Abdominal wound dehiscence Instructions: ED Abscess Antibiotic Treatment Only, ED Wound Check (Infection) Prescriptions: New sulfamethoxazole-trimethoprim [Bactrim DS] 800-160 mg tablet 1 tab PO BID 7 Days Qty: 14 0RF cephalexin 500 mg capsule 500 mg PO TID 7 Days Qty: 21 0RF No Action metformin 500 mg tablet 500 mg PO BID Qty: 60 0RF ondansetron 4 mg tablet,disintegrating 4 mg PO Q6H PRN (Reason: nausea and vomiting) Qty: 7 0RF Primary Care Provider: Care Physician,No Primary Referrals: Care Physician,No Primary [Primary Care Provider] - Activity Restrictions/Additional Instructions: Please take all antibiotics as prescribed. Please return if cannot tolerate antibiotics by mouth, if develop fever, worsening pain, or symptoms not improving within the next 72 hours. Please follow-up with your surgeon for reevaluation and further management. Disposition Disposition: Home, Self Care
--- NOTE | 2021-11-21 23:17 | CT_ITS ---
STUDY: CT ABDOMEN AND PELVIS WITH CONTRAST REASON FOR EXAM: Female, 41 years old. wound dehiscence, drainage concern for abscess RADIATION DOSAGE (If Supplied By Facility): CTDIvol = ( 17.44 ) mGy, DLP = ( 943.22 ) mGycm TECHNIQUE: Transaxial images were obtained from the dome of the diaphragm to the symphysis pubis without oral contrast. IV 100mL Isovue-300 was administered. Sagittal and coronal images were reconstructed. Individualized dose optimization techniques were used for this CT. COMPARISON: None. FINDINGS: The visualized lung bases are unremarkable. The visualized portions of the heart are within normal limits. Normal liver. Normal gallbladder and extrahepatic biliary system. Normal spleen. Normal pancreas. Normal bilateral adrenal glands. Normal right kidney. Normal left kidney. Normal visualized stomach. Surgical anastomosis on the small intestine in the upper abdomen. Normal colon. There is non-visualization of the appendix. Normal abdominal aorta. There is an IVC filter in place. Normal retroperitoneum. Normal urinary bladder. A small amount of free fluid in the abdomen near the liver with nonspecific rounded cystic structure adjacent to the lower edge of the liver that has increased in size since 07/18/2020, it measured previously 1.7 cm now measures 3.2 cm in diameter. There is a small fluid collection in the upper anterior abdominal wall at the incision measuring approximately 8 x 2 x 1.6 cm containing air bubbles and is consistent with an abscess. Normal abdominal wall. Normal osseous structures. CT/Abdomen/Pelvis W IV Cont ONLY IMPRESSION: A small amount of free fluid in the abdomen near the liver with nonspecific rounded cystic structure adjacent to the lower edge of the liver that has increased in size since 07/18/2020, it measured previously 1.7 cm now measures 3.2 cm in diameter. There is a small fluid collection in the upper anterior abdominal wall at the incision measuring approximately 8 x 2 x 1.6 cm containing air bubbles and is consistent with an abscess. Electronically Signed: Constance Mclean MD at 0:59 EDT ,
[2021-11-21] MEDS: 0.9% Normal Saline 1,000 ML 999 ML IV (23:45)
[2021-11-21] MEDS: Ondansetron 4 MG/2 ML Vial IV (23:45)
[2021-11-21 23:53] LABS: Hematocrit 34.9 % (37-47); Hemoglobin 11.3 g/dL (12.0-15.0); Mean Corp Hgb Conc 32.4 g/dL (32-36); Mean Corpuscular Hgb 29.2 pg (27.0-32.0); Mean Corpuscular Volume 90.2 fL (81-99); Platelet Count 241 K/mm3 (150-450); RBC Distribution Width SD 42.3 fl (35.1-43.9); Red Blood Count 3.87 M/mm3 (4.2-5.4); White Blood Count 4.8 K/mm3 (4.4-11.0)
[2021-11-22 00:08] LABS: Anion Gap 3 (5-15); BUN 9 mg/dL (7-18); Calcium,Total 8.7 mg/dL (8.5-10.1); Chloride 105 mmol/L (98-107); Creatinine, Serum 0.56 mg/dL (0.55-1.02); EST Glomerular Filtration Rate 125 mL/min (>60); Est Glom Filt Rate - Afr Amer 151 mL/min (>60); Estimated Creatinine Clearance 108.26 ml/min; Glucose 291 mg/dL (74-106); Potassium 3.9 mmol/L (3.5-5.1); Sodium Level 137 mmol/L (136-145)
[2021-11-22] MEDS: Smz/Tmp Ds Tablet 1 TABLET PO (01:28)
[2021-11-22] MEDS: Cephalexin 250 MG Capsule 500 MG PO (01:28)
[2021-11-22 01:32] VITALS: BP 103/68; PULSE 69; RESP 17; O2SAT 97
== END 2021-11-22 01:44 | disposition home or self-care (01) ==
PROVIDERS: Emergency Provider Emergency Medicine; Visit Provider Emergency Medicine
DX: L02.211 Cutaneous abscess of abdominal wall (principal); E11.9 Type 2 diabetes mellitus without complications; T81.49XA Infection following a procedure, other surgical site, initial encounter; K43.9 Ventral hernia without obstruction or gangrene; S31.109A Unspecified open wound of abdominal wall, unspecified quadrant without penetration into peritoneal cavity, initial encounter; R11.0 Nausea; F17.200 Nicotine dependence, unspecified, uncomplicated
CPT/HCPCS: 74177; 80048; 85027; 99283; J7030; Q9967; J2405

== ENCOUNTER 2021-12-05 22:20 | Emergency (ER) | payer BC, SELFPAY ==
[2021-12-05 22:21] VITALS: BP 120/79; PULSE 94; RESP 16; TEMP 36.9; O2SAT 97; BMI 30.1
[2021-12-05 22:25] VITALS: BP 120/79; PULSE 94; RESP 16; TEMP 36.9; O2SAT 97
--- NOTE | 2021-12-05 22:44 | EX.ED.DYSGE1 ---
HPI History of Present Illness Chief Complaint: Abd Pain Informant: patient Narrative Narrative: 41-year-old female presented to the emergency room stating that she was referred here by urgent care. She states that at the end of September she had abdominal hernia surgery through [facility]. She states that about 2 weeks ago she was diagnosed with an infection. She has been on unknown antibiotics but believed to be Keflex and Bactrim based on her description of green and white pills and through looking at the chart. She states she is a diabetic. She just went back to work. She states that she developed some low back discomfort that felt better as she rubbed it. When she came home from work she felt very tired and has been sleeping more than normal. She states that she went to the urgent care out of concerns that she may have worsening infection. She states that she was told that she had a urinary tract infection and that she should come to the emergency department. She states that she was at urgent care several hours ago. She denies any fever or dysuria or frequency. She notes that she has a history of cervical cancer. She has not been able to see her doctors through the [facility] due to transportation issues. She states that she decided to come to emergency tonight because urgent care worried her. She denies any fevers or vomiting. No diarrhea. She notes that the back discomfort is minimal. She denies any radicular symptoms. PFSH PFSH Medical History Diabetes FHx: chemotherapy Former smoker [place] filter in place Hernia Hx of cervical cancer Pulmonary embolism Smoker Home Medications metformin 500 mg tablet 500 mg PO BID #60 tabs 05/20/21 [Rx Last Taken Unknown] ondansetron 4 mg disintegrating tablet 4 mg PO Q6H PRN nausea and vomiting #7 tabs 08/14/21 [Rx Last Taken Unknown] cephalexin 500 mg capsule 500 mg PO TID 7 days #21 caps 11/22/21 [Rx Last Taken Unknown] sulfamethoxazole 800 mg-trimethoprim 160 mg tablet (Bactrim DS) 1 tab PO BID 7 days #14 tabs 11/22/21 [Rx Last Taken Unknown] Allergy/AdvReac Type Severity Reaction Status Date / Time Penicillins AdvReac Nausea/Vom/ Verified 12/05/21 23:27 Diarrhea Surgical History History of embolic filter insertion History of hernia repair Hx of colostomy Hx of ileostomy Social History (Updated 12/05/21 @ 22:[address] Rafat Acevedo DO) Smoking Status: Current some day smoker tobacco type: cigarettes substance use type: does not use ROS ROS ED Constitutional Constitutional ED: Denies chills or weight loss Eyes Eyes: Denies change in vision or diplopia ENT ENT ED: Denies ear pain, rhinorrhea or sore throat Cardiovascular Cardiovascular: Denies chest pain, orthopnea, palpitations or racing heartbeat Respiratory/Chest Respiratory/Chest: Denies cough, dyspnea or orthopnea Gastrointestinal Gastrointestinal: Denies abdominal pain, diarrhea, nausea or vomiting Genitourinary Genitourinary ED: Denies dysuria, hematuria or urinary frequency Musculoskeletal Musculoskeletal: Reports back pain; Denies arthralgias or myalgias Integumentary Denies abscess or rash Neurologic Neurologic: Denies headache(s) or weakness Psychiatric Psychiatric: Denies anxiety, depression, suicidal ideation or suicidal thoughts Endocrine Endocrinology: Denies polydipsia, polyphagia or polyuria Allergic/Immunologic Allergic/Immunologic ED: Denies mouth swelling, tongue swelling or urticaria EXAM Physical Exam Const Vital Signs: 12/05/21 22:21 12/05/21 22:25 Temperature 98.5 F 98.5 F Temperature Source Temporal Temporal Pulse Rate 94 94 Respiratory Rate 16 16 Blood Pressure 120/79 120/79 Blood Pressure Mean 92 92 Pulse Ox 97 97 Oxygen Delivery Method Room Air Room Air Positive well nourished and well developed General Appearance ED: well developed HEENT Reports normocephalic, head/scalp atraumatic and moist mucous membranes Eyes PERRL and EOMs intact bilaterally Neck no lymphadenopathy, supple and no JVD Resp normal respiratory effort and clear to auscultation bilaterally Cardio regular rate, regular rhythm and no murmurs GI normal to inspection, nondistended, normoactive bowel sounds and non-tender GI Narrative: There is a well-healed midline incision of the abdomen. I do not appreciate any drainage from the wound. There is no surrounding erythema. Palpation: soft Back/Spine no CVA tenderness and normal ROM Extremity normal to inspection General Extremety ED: Negative for edema General Extremity: Negative for edema Neuro oriented x3 and CN's II-XII intact bilaterally Sensorium / Orientation: alert Motor Exam: strength 5/5 throughout Psych mental status grossly normal Mood & Affect: Negative for depressed or tearful Skin no rashes or lesions noted and no wounds MDM MDM MDM Narrative Medical decision making narrative: White count is 4.4. Hemoglobin is 11.7 which is chronic for her. Urinalysis does not show any evidence of infection. Clinical I think the patient's low back pain was musculoskeletal in nature. I think she clinically appears well. I would recommend that she continue her antibiotics and follow-up with her surgeon. Return if worsening or concerns Lab Data Attestation: I reviewed the patient's lab results. Labs: Laboratory Results - last 24 hr 12/05/21 12/05/21 22:42 22:57 WBC 4.4 RBC 4.02 L Hgb 11.7 L Hct 36.6 L MCV 91.0 MCH 29.1 MCHC 32.0 RDW Std Deviation 44.2 H RDW Coeff of Jennifer 13.2 Plt Count 275 MPV 8.9 Immature Gran % (Auto) 0.500 Neut % (Auto) 59.3 Lymph % (Auto) 30.5 [place] % (Auto) 6.2 Eos % (Auto) 3.0 Baso % (Auto) 0.5 Absolute Neuts (auto) 2.6 Absolute Lymphs (auto) 1.33 Nucleated RBC % 0 Urine Color Yellow Urine Clarity Clear Urine pH 6.0 Ur Specific [place] 1.015 Urine Protein Negative Urine Glucose (UA) 1000 H Urine Ketones Negative Urine Occult Blood 25 H Urine Nitrite Negative Urine Bilirubin Negative Urine Urobilinogen Normal Ur Leukocyte Esterase 25 H Urine RBC 0-5 SEEN Urine WBC 0-5 SEEN Ur Squamous Epith Cells 0-5 SEEN Urine Bacteria 0 SEEN Urine Mucus 0 SEEN Discharge Plan Triage Chief Complaint: Abd Pain ED Provider: Rafat Acevedo Dx/Rx/DC Orders Clinical Impression: Diabetes, Back pain, Encounter for postoperative wound check Instructions: Self-Care for Low Back Pain Prescriptions: No Action metformin 500 mg tablet 500 mg PO BID Qty: 60 0RF ondansetron 4 mg tablet,disintegrating 4 mg PO Q6H PRN (Reason: nausea and vomiting) Qty: 7 0RF sulfamethoxazole-trimethoprim [Bactrim DS] 800-160 mg tablet 1 tab PO BID 7 Days Qty: 14 0RF cephalexin 500 mg capsule 500 mg PO TID 7 Days Qty: 21 0RF Primary Care Provider: Care Physician,No Primary Referrals: Care Physician,No Primary [Primary Care Provider] - Activity Restrictions/Additional Instructions: Please follow-up with your surgeon when you can. Disposition Disposition: Home, Self Care
[2021-12-05 22:52] LABS: Bacteria 0 SEEN /hpf (None Seen); Mucous, Urine 0 SEEN /hpf (<or=2+)
[2021-12-05 22:58] LABS: Color, Urine Yellow (Yellow); Glucose, Dipstick 1000 mg/dl (Normal); Ketone-Dipstick Negative (Negative); Leukocyte Esterase-Dipstick 25 /ul (Negative); Nitrite-Dipstick Negative (Negative); Occult Blood-Urine 25 /ul (Negative); Protein-Dipstick Negative (Negative); Specific Gravity, Urine 1.015 (1.002-1.030); Urine Bilirubin Dipstick Negative (Negative); Urine Clarity Clear (Clear); Urine Urobilinogen Normal (Normal)
[2021-12-05 23:13] LABS: Absolute Lymphocyte Count 1.33 X10^3/uL (0.83-4.51); Absolute Neutrophil Count 2.6 X10^3/uL (2.0-7.7); Basophil# 0.02 X10^3/uL; Basophil% 0.5 % (0-1); Eosinophil# 0.13 X10^3/uL; Hematocrit 36.6 % (37-47); Hemoglobin 11.7 g/dL (12.0-15.0); Lymphocyte # 1.33 X10^3/ul (0.83-4.51); Lymphocyte % 30.5 % (19-41); Mean Corpuscular Hgb 29.1 pg (27.0-32.0); Mean Platelet Vol. 8.9 fl (6.2-12.0); Monocyte# 0.27 X10^3/uL; Monocyte% 6.2 % (0-10); NRBC Flagged by Analyzer 0 % (0-5); Neutrophil # 2.59 X10^3/uL (2.7-7.7); Neutrophil % 59.3 % (47-70); Platelet Count 275 K/mm3 (150-450); RBC Distribution Width CV 13.2 % (11.6-14.6); RBC Distribution Width SD 44.2 fl (35.1-43.9); Red Blood Count 4.02 M/mm3 (4.2-5.4); White Blood Count 4.4 K/mm3 (4.4-11.0)
[2021-12-05 23:16] LABS: Red Blood Cells-Urine 0-5 SEEN /hpf (0-5); Squamous Epithelial Cells - UA 0-5 SEEN /hpf (5-10); White Blood Cells 0-5 SEEN /hpf (0-5)
[2021-12-05 23:24] VITALS: BP 105/71; PULSE 91; RESP 18; TEMP 36.6; O2SAT 94
[2021-12-05 23:30] LABS: ALB/GLOB Ratio 0.9 RATIO (0.9-2.4); AST(SGOT) 6 U/L (15-37); Alanine Aminotransfer ALT/SGPT 12 U/L (13-56); Albumin, Serum 3.1 g/dL (3.2-5.0); Alkaline Phosphatase 57 U/L (45-117); Anion Gap 5 (5-15); BUN 12 mg/dL (7-18); BUN/Creat Ratio 17.4 RATIO (10-20); Calcium,Total 8.9 mg/dL (8.5-10.1); Chloride 104 mmol/L (98-107); Creatinine, Serum 0.69 mg/dL (0.55-1.02); EST Glomerular Filtration Rate 99 mL/min (>60); Est Glom Filt Rate - Afr Amer 120 mL/min (>60); Estimated Creatinine Clearance 87.86 ml/min; Globulin 3.6 g/dL (2.2-4.2); Glucose 368 mg/dL (74-106); Potassium 3.4 mmol/L (3.5-5.1); Protein, Total 6.7 g/dL (6.4-8.2); Sodium Level 138 mmol/L (136-145)
== END 2021-12-05 23:33 | disposition home or self-care (01) ==
PROVIDERS: Emergency Provider Emergency Medicine; Visit Provider Emergency Medicine
DX: Z48.1 Encounter for planned postprocedural wound closure (principal); E11.9 Type 2 diabetes mellitus without complications; M54.9 Dorsalgia, unspecified; F17.200 Nicotine dependence, unspecified, uncomplicated; Z86.711 Personal history of pulmonary embolism
CPT/HCPCS: 80053; 81001; 85025; 99282; A4216

== ENCOUNTER 2022-02-25 16:30 | Emergency (ER) | payer SELFPAY ==
[2022-02-25 16:32] VITALS: BP 123/90; PULSE 94; RESP 16; TEMP 36.8; O2SAT 96; BMI 32.3
--- NOTE | 2022-02-25 18:15 | ED.VIS.DYS ---
HPI History of Present Illness Chief Complaint: Cold Sx Narrative Narrative: Patient presents with cough and congestion for 2 weeks and recently developed right ear pain and a sore throat. She has had a subjective fever. No difficulty breathing, she has a slight, nonproductive cough. No back pain, no pleuritic component. No urinary symptoms. No rash no neck pain or stiffness PFSH PFSH Medical History Diabetes FHx: chemotherapy Former smoker Jackson filter in place Hernia Hx of cervical cancer Pulmonary embolism Smoker Home Medications metformin 500 mg tablet 500 mg PO BID #60 tabs 05/20/21 [Rx Last Taken Unknown] ondansetron 4 mg disintegrating tablet 4 mg PO Q6H PRN nausea and vomiting #7 tabs 08/14/21 [Rx Last Taken Unknown] cephalexin 500 mg capsule 500 mg PO TID 7 days #21 caps 11/22/21 [Rx Last Taken Unknown] sulfamethoxazole 800 mg-trimethoprim 160 mg tablet (Bactrim DS) 1 tab PO BID 7 days #14 tabs 11/22/21 [Rx Last Taken Unknown] doxycycline hyclate 100 mg capsule 100 mg PO BID #20 caps 02/25/22 [Rx Last Taken Unknown] Allergy/AdvReac Type Severity Reaction Status Date / Time Penicillins AdvReac Nausea/Vom/ Verified 02/25/22 16:32 Diarrhea Surgical History History of embolic filter insertion History of hernia repair Hx of colostomy Hx of ileostomy Social History Smoking Status: Current some day smoker tobacco type: cigarettes substance use type: does not use ROS ROS ED ROS Narrative Past medical history: Reviewed, includes diabetes, history of DVT. Medications: Reviewed Social history: Noncontributory Review of systems: All systems negative except as indicated General: No fever Eyes: No visual changes ENT: As in HPI Neck: No neck pain Cardiovascular: No chest pain Respiratory: No shortness of breath or cough Gastrointestinal: No abdominal pain, nausea vomiting or diarrhea Genitourinary: No dysuria Musculoskeletal: Denies myalgias no difficulty with ambulation Skin: No rash Neurological: No memory loss, confusion or any focal weakness Psych: No recent behavioral changes Hematologic: No easy bleeding or easy bruising EXAM Physical Exam Narrative Exam Narrative: Physical exam General: Well nourished, Well developed, No Acute Distress Head: Normocephalic, Atraumatic Eyes: Conjunctiva not pale ENT: Moist mucous membranes. Right TM is bulging and erythematous, left TM is erythematous. She has some postnasal drip. She has swollen nasal turbinates and sinus pain in the frontal and maxillary sinus region Neck: Supple, Nontender, No lymphadenopathy Cardiovascular: Regular rate, Regular rhythm Respiratory: No distress, CTA bilaterally Abdomen: Soft, Nontender, Nondistended Back: Nontender, Normal Inspection. Negative for: CVA tenderness Extremities: Nontender, No edema Skin: Normal color, No rash Neurological: Alert, Normal Strength, Normal Sensation Psychological: Normal affect Const Vital Signs: 02/25/22 16:32 Temperature 98.3 F Temperature Source Temporal Pulse Rate 94 Respiratory Rate 16 Blood Pressure 123/90 H Blood Pressure Mean 101 Pulse Ox 96 Oxygen Delivery Method Room Air MDM MDM MDM Narrative Medical decision making narrative: Patient has had this infection for 2 weeks it is a sinus infection and meets criteria for antibiotics. She also has significant right-sided otitis media. Discharge Plan Triage Chief Complaint: Cold Sx ED Provider: Rusty Banerjee Dx/Rx/DC Orders Clinical Impression: Otitis media, Sinusitis Instructions: ED Otitis Media Antibiotic ... Prescriptions: New doxycycline hyclate 100 mg capsule 100 mg PO BID Qty: 20 0RF No Action metformin 500 mg tablet 500 mg PO BID Qty: 60 0RF ondansetron 4 mg tablet,disintegrating 4 mg PO Q6H PRN (Reason: nausea and vomiting) Qty: 7 0RF sulfamethoxazole-trimethoprim [Bactrim DS] 800-160 mg tablet 1 tab PO BID 7 Days Qty: 14 0RF cephalexin 500 mg capsule 500 mg PO TID 7 Days Qty: 21 0RF Primary Care Provider: Care Physician,No Primary Referrals: Care Physician,No Primary [Primary Care Provider] - Disposition Disposition: Home, Self Care
[2022-02-25 18:28] VITALS: BP 124/74; O2SAT 98
[2022-02-25 18:29] VITALS: O2SAT 98
== END 2022-02-25 18:41 | disposition home or self-care (01) ==
LOC: ED 18:33
PROVIDERS: Emergency Provider Emergency Medicine; Visit Provider Emergency Medicine
DX: H66.91 Otitis media, unspecified, right ear (principal); J32.9 Chronic sinusitis, unspecified; F17.211 Nicotine dependence, cigarettes, in remission; Z86.711 Personal history of pulmonary embolism
CPT/HCPCS: 99282

== ENCOUNTER 2022-03-19 19:16 | Emergency (ER) | payer SELFPAY ==
[2022-03-19 19:17] VITALS: BP 139/87; PULSE 103; RESP 16; TEMP 36.4; O2SAT 97; BMI 31.8
[2022-03-19 19:39] VITALS: BP 129/84; PULSE 84; RESP 18; O2SAT 99
--- NOTE | 2022-03-19 19:51 | CT_ITS ---
INDICATION: Short posterior headache and dizziness, history of cervical cancer EXAMINATION: CT BRAIN WITH AND WITHOUT CONTRAST - CT Head or Brain WO/W Contrast Injection TECHNIQUE: Multiple axial images were obtained of the brain with and without IV contrast. A radiation dose optimization technique was used for this scan. IV Contrast dosage and agent: 100 cc [id number] COMPARISON: None. FINDINGS: BRAIN PARENCHYMA: No intra- or extra-axial hemorrhage. No evidence of acute infarct. No intracranial mass or mass effect. There is preservation of the desai/white matter interface. Posterior fossa structures are unremarkable. No abnormal contrast enhancement. CSF SPACES: Appropriate for age. No hydrocephalus. Basal cisterns are patent. CALVARIUM, SKULL BASE, PARANASAL SINUSES AND MASTOID AIR CELLS: Clear. No discrete lytic or blastic abnormalities. ORBITS: Both globes, extraocular muscles, optic nerves and retrobulbar fat appear unremarkable. ASPECTS Score for Acute Strokes: 10 CT/CTA Head W/WO Contrast IMPRESSION: Negative CT Brain with and without contrast. Electronically Signed: Rusty Khan MD at 20:22 EST , Please refer to the addendum on report for concurrent head CT without and with contrast injection. Electronically Signed: Rusty Khan MD at 21:26 EST ,
--- NOTE | 2022-03-19 19:54 | EX.ED.DYSGE1 ---
HPI <ISA Salazar - Last Filed: 03/19/22 21:38> History of Present Illness Chief Complaint: Headache Narrative Narrative: Patient presents today with headache. She states she was sitting in [employer] yesterday afternoon when she got a sudden sharp shooting pain in the back of her head and she became dizzy. She states this pain lasted for around 30 minutes and she became nauseous shortly after. She then took 4 ibuprofen and the pain went away shortly after and did not come back. She states that earlier this evening the pain came back in the same place and same intensity and she became dizzy, nauseous, and vomited one time. She has a history of frontal headaches that are moderate in intensity but she has never had pain like this. She states that her aunt has had a brain aneurysm and this worried her. She is on no blood thinners. PFSH <ISA Salazar - Last Filed: 03/19/22 21:38> [facility] Medical History Diabetes FHx: chemotherapy Former smoker Jackson filter in place Hernia Hx of cervical cancer Pulmonary embolism Smoker Home Medications metformin 500 mg tablet 500 mg PO BID #60 tabs 05/20/21 [Rx Last Taken Unknown] ondansetron 4 mg disintegrating tablet 4 mg PO Q6H PRN nausea and vomiting #7 tabs 08/14/21 [Rx Last Taken Unknown] cephalexin 500 mg capsule 500 mg PO TID 7 days #21 caps 11/22/21 [Rx Last Taken Unknown] sulfamethoxazole 800 mg-trimethoprim 160 mg tablet (Bactrim DS) 1 tab PO BID 7 days #14 tabs 11/22/21 [Rx Last Taken Unknown] doxycycline hyclate 100 mg capsule 100 mg PO BID #20 caps 02/25/22 [Rx Last Taken Unknown] Allergy/AdvReac Type Severity Reaction Status Date / Time Penicillins AdvReac Nausea/Vom/ Verified 03/19/22 19:19 Diarrhea Surgical History History of embolic filter insertion History of hernia repair Hx of colostomy Hx of ileostomy Social History Smoking Status: Current some day smoker tobacco type: cigarettes substance use type: does not use ROS <ISA Salazar - Last Filed: 03/19/22 21:38> ROS ED Constitutional Constitutional ED: Denies chills, fever(s) or sweats Eyes Eyes: Denies blurry vision, change in vision or diplopia ENT ENT ED: Denies ear pain, rhinorrhea or sore throat Cardiovascular Cardiovascular: Denies chest pain, palpitations or racing heartbeat Respiratory/Chest Respiratory/Chest: Denies cough, dyspnea or dyspnea on exertion Gastrointestinal Gastrointestinal: Reports nausea and vomiting; Denies abdominal pain or diarrhea Genitourinary Genitourinary ED: Denies dysuria, hematuria or urinary frequency Musculoskeletal Musculoskeletal: Denies arthralgias, back pain or neck pain Integumentary Denies abscess, Abrasions or rash Neurologic Neurologic: Reports headache(s); Denies paresthesias or weakness Psychiatric Psychiatric: Denies anxiety, depression or suicidal ideation EXAM <ISA Salazar - Last Filed: 03/19/22 21:38> Physical Exam Const Vital Signs: 03/19/22 19:17 03/19/22 19:39 03/19/22 21:23 Temperature 97.5 F L Temperature Source Temporal Pulse Rate 103 H 84 Respiratory Rate 16 18 Blood Pressure 139/87 H 129/84 H 105/88 H Blood Pressure Mean 104 99 93 Pulse Ox 97 99 Oxygen Delivery Method Room Air Room Air Positive well nourished and well developed General Appearance ED: well developed and NAD HEENT Reports moist mucous membranes Negative for trauma or tenderness Eyes PERRL and EOMs intact bilaterally Neck no lymphadenopathy and supple Chest Wall inspection of chest normal Resp normal respiratory effort and clear to auscultation bilaterally Cardio regular rate, regular rhythm and no murmurs GI non-tender, non-distended and no masses Palpation: soft Back/Spine Cervical Spine: Negative for cervical spine tenderness Extremity normal to inspection Neuro oriented x3, CN's II-XII intact bilaterally and no sensory deficits noted Sensorium / Orientation: alert Motor Exam: strength 5/5 throughout Psych mental status grossly normal Skin no rashes or lesions noted, no wounds and skin turgor normal <Dr. Rafael Alvarez DO - Last Filed: 03/19/22 21:24> Physical Exam Const Vital Signs: 03/19/22 19:17 03/19/22 19:39 03/19/22 21:23 Temperature 97.5 F L Temperature Source Temporal Pulse Rate 103 H 84 Respiratory Rate 16 18 Blood Pressure 139/87 H 129/84 H 105/88 H Blood Pressure Mean 104 99 93 Pulse Ox 97 99 Oxygen Delivery Method Room Air Room Air [facility] <ISA Salazar - Last Filed: 03/19/22 21:38> [facility] Narrative Medical decision making narrative: I have personally performed a face to face assessment of the patient and have reviewed the ELISABET Note. I performed a substantive portion of the visit including all aspects of the following. My landa findings include: History is [patient seen in conjunction with physician's events and promotions assistant. Patient presented with headache that initially started yesterday. Patient states that she was at a restaurant when she had sudden onset of severe pain in the back part of her head. Patient states that she went to the car and took 4 ibuprofen and and he eventually the headache resolved completely after about a half an hour. Patient states that she slept well all night and felt fine all day today until she once again got up off the couch to go to the bathroom and felt somewhat lightheaded and her headache came back in the exact same spot at the same time of day. She did vomit x1. Headache then resolved again and is currently resolved. She denies visual changes. Patient states that she does get frequent headaches but this is very different and unusual. She tells me her aunt has history of brain aneurysm that required surgery.] Exam is [HEENT-PERRLA, EOMI. Cranial nerves II through XII grossly intact. TMs clear. Mucous membranes moist. No adenopathy. Cardiovascular-regular rate and rhythm without murmur or ectopy Lungs-clear to auscultation, chest wall stable without crepitus or subcu emphysema [id number] and heel harris testing within normal limits, negative Romberg, negative pronator drift, fundi benign Abdomen-normoactive bowel sounds, soft, nontender, no rebound or rigidity, no peritoneal signs. Extremities-intact ?4, normal range of motion, normal pulses, atraumatic] Medical Decison Making [patient had a CTA of the brain that was negative for bleed or aneurysm or any acute disease process. Patient looks well and is headache free. I do not feel her history and exam consistent with subarachnoid hemorrhage I do not feel she needs a spinal tap. Patient will be given referral to neurology for follow-up as she does have frequent headaches. She is advised to return if severe headache, vomiting, syncope, or condition should worsen anyway.] Other additions or changes: [None] Patient does not currently have a headache here in the ED. CTA of the brain negative for any bleed or aneurysm. Patient has been given a referral for neurology follow-up, she has been given return instructions. I am comfortable with patient discharging home in stable condition and patient is comfortable with plan. Radiography Diagnostic Testing: Clinical Impression(s) from Imaging Studies Head CTA 03/19/22 19:51 IMPRESSION: Negative CT Brain with and without contrast. Electronically Signed: Rusty Khan MD at 20:22 EST , Please refer to the addendum on report for concurrent head CT without and with contrast injection. Electronically Signed: Rusty Khan MD at 21:26 EST , ADDENDUM: 03/19/222038 IMPRESSION: undefined ADDENDUM: 03/19/222122 IMPRESSION: Negative CTA Head. Pending Final Proof Editing ADDENDUM: 03/19/222132 IMPRESSION: undefined CT has also been reviewed by attending ED physician. <Dr. Rafael Alvarez, DO - Last Filed: 03/19/22 21:24> [facility] Narrative Medical decision making narrative: I have personally performed a face to face assessment of the patient and have reviewed the ELISABET Note. I performed a substantive portion of the visit including all aspects of the following. My landa findings include: History is [patient seen in conjunction with physician's events and promotions assistant. Patient presented with headache that initially started yesterday. Patient states that she was at a restaurant when she had sudden onset of severe pain in the back part of her head. Patient states that she went to the car and took 4 ibuprofen and and he eventually the headache resolved completely after about a half an hour. Patient states that she slept well all night and felt fine all day today until she once again got up off the couch to go to the bathroom and felt somewhat lightheaded and her headache came back in the exact same spot at the same time of day. She did vomit x1. Headache then resolved again and is currently resolved. She denies visual changes. Patient states that she does get frequent headaches but this is very different and unusual. She tells me her aunt has history of brain aneurysm that required surgery.] Exam is [HEENT-PERRLA, EOMI. Cranial nerves II through XII grossly intact. TMs clear. Mucous membranes moist. No adenopathy. Cardiovascular-regular rate and rhythm without murmur or ectopy Lungs-clear to auscultation, chest wall stable without crepitus or subcu emphysema Zzzas-cefzam-samq and heel harris testing within normal limits, negative Romberg, negative pronator drift, fundi benign Abdomen-normoactive bowel sounds, soft, nontender, no rebound or rigidity, no peritoneal signs. Extremities-intact ?4, normal range of motion, normal pulses, atraumatic] Medical Decison Making [patient had a CTA of the brain that was negative for bleed or aneurysm or any acute disease process. Patient looks well and is headache free. I do not feel her history and exam consistent with subarachnoid hemorrhage I do not feel she needs a spinal tap. Patient will be given referral to neurology for follow-up as she does have frequent headaches. She is advised to return if severe headache, vomiting, syncope, or condition should worsen anyway.] Other additions or changes: [None] Radiography Diagnostic Testing: Clinical Impression(s) from Imaging Studies Head CTA 03/19/22 19:51 IMPRESSION: Negative CT Brain with and without contrast. Electronically Signed: Rusty Khan MD at 20:22 EST , Please refer to the addendum on report for concurrent head CT without and with contrast injection. Electronically Signed: Rusty Khan MD at 21:26 EST , ADDENDUM: 03/19/222038 IMPRESSION: undefined ADDENDUM: 03/19/222122 IMPRESSION: Negative CTA Head. Pending Final Proof Editing ADDENDUM: 03/19/222132 IMPRESSION: undefined Discharge Plan Triage Chief Complaint: Headache ED Midlevel Provider: Tara Reynolds ED Provider: Rafael Alvarez Dx/Rx/DC Orders Clinical Impression: Headache Instructions: ED Headache Unspecified Prescriptions: No Action metformin 500 mg tablet 500 mg PO BID Qty: 60 0RF ondansetron 4 mg tablet,disintegrating 4 mg PO Q6H PRN (Reason: nausea and vomiting) Qty: 7 0RF sulfamethoxazole-trimethoprim [Bactrim DS] 800-160 mg tablet 1 tab PO BID 7 Days Qty: 14 0RF cephalexin 500 mg capsule 500 mg PO TID 7 Days Qty: 21 0RF doxycycline hyclate 100 mg capsule 100 mg PO BID Qty: 20 0RF Primary Care Provider: Care Physician,No Primary Referrals: Jabier Chen MD [Non-Staff -Ordering Privileges] - 3-5 Days Care Physician,No Primary [Primary Care Provider] - Disposition Disposition: Home, Self Care Discharge Date/Time: 03/19/22 21:30
[2022-03-19 21:23] VITALS: BP 105/88
== END 2022-03-19 21:30 | disposition home or self-care (01) ==
PROVIDERS: Emergency Provider Emergency Medicine; Visit Provider Emergency Medicine
DX: R51.9 Headache, unspecified (principal); E11.9 Type 2 diabetes mellitus without complications; F17.200 Nicotine dependence, unspecified, uncomplicated
CPT/HCPCS: 70496; 99283; Q9967

== ENCOUNTER 2022-05-07 21:43 | Emergency (ER) | payer MEDICAID, SELFPAY ==
[2022-05-07 21:44] VITALS: BP 136/90; PULSE 105; RESP 15; TEMP 36.1; O2SAT 97; BMI 31.8
--- NOTE | 2022-05-07 22:18 | RAD_ITS ---
EXAM: XR NASAL BONES, 3 OR MORE VIEWS CLINICAL INDICATION: Trauma TECHNIQUE: Frontal and lateral views of the nasal bones. This report was created using [employer] report generation technology. COMPARISON: None. FINDINGS: BONES/JOINTS: Unremarkable. No fracture. No sclerotic or destructive changes observed. SOFT TISSUES: Unremarkable. No soft tissue swelling or gas. No radiopaque foreign body. RAD/Nasal Bones min 3 Views IMPRESSION: No fracture. Electronically Signed: Sergio Rendon MD at 22:39 EST ,
--- NOTE | 2022-05-07 23:20 | EX.ED.GENINJ ---
HPI History of Present Illness Chief Complaint: Other, Pain/Inj Informant: patient Onset/Context/Timing Onset: Today Mechanism/Context: Blunt Injury Quality of Pain: Dull and - (Soreness) Location: Nose Worsened by: Pressure Relieved by: Nothing Narrative Narrative: Patient presents with possible nasal fracture. Patient states she was playing baseball with her child outside. Patient states her child threw the ball and hit her in the nose. Patient states she felt lightheaded briefly. Patient did not lose consciousness. Patient states her pain has gotten worse. Patient describes it as a dull ache. Patient states it is worse whenever there is anything pressing on it. Patient states she used ice with no improvement. Patient denies any paresthesias or weakness. Patient denies any visual changes. Patient states she has broken her nose in the past and states this feels similar. Patient denies any epistaxis. PFSH PFSH Medical History Diabetes FHx: chemotherapy Former smoker Jackson filter in place Hernia Hx of cervical cancer Pulmonary embolism Smoker Home Medications metformin 500 mg tablet 500 mg PO BID #60 tabs 05/20/21 [Rx Last Taken Unknown] ondansetron 4 mg disintegrating tablet 4 mg PO Q6H PRN nausea and vomiting #7 tabs 08/14/21 [Rx Last Taken Unknown] cephalexin 500 mg capsule 500 mg PO TID 7 days #21 caps 11/22/21 [Rx Last Taken Unknown] sulfamethoxazole 800 mg-trimethoprim 160 mg tablet (Bactrim DS) 1 tab PO BID 7 days #14 tabs 11/22/21 [Rx Last Taken Unknown] doxycycline hyclate 100 mg capsule 100 mg PO BID #20 caps 02/25/22 [Rx Last Taken Unknown] Allergy/AdvReac Type Severity Reaction Status Date / Time Penicillins AdvReac Nausea/Vom/ Verified 05/07/22 22:02 Diarrhea Surgical History History of embolic filter insertion History of hernia repair Hx of colostomy Hx of ileostomy Social History Smoking Status: Current some day smoker tobacco type: cigarettes substance use type: does not use ROS ROS ED Constitutional Constitutional ED: Denies chills or fever(s) Eyes Eyes: Denies blurry vision or change in vision ENT ENT ED: Denies rhinorrhea or sore throat Cardiovascular Cardiovascular: Denies chest pain or palpitations Respiratory/Chest Respiratory/Chest: Denies cough or dyspnea Gastrointestinal Gastrointestinal: Denies nausea or vomiting Genitourinary Genitourinary ED: Denies dysuria or hematuria Musculoskeletal Musculoskeletal: Denies back pain or neck pain Integumentary Denies abscess or rash Neurologic Neurologic: Denies headache(s) or weakness Allergic/Immunologic Allergic/Immunologic ED: Denies mouth swelling or urticaria EXAM Physical Exam Const Vital Signs: 05/07/22 21:44 Temperature 96.9 F L Temperature Source Temporal Pulse Rate 105 H Respiratory Rate 15 Blood Pressure 136/90 H Blood Pressure Mean 105 Pulse Ox 97 Oxygen Delivery Method Room Air Positive well nourished and well developed General Appearance ED: well developed and NAD HEENT HEENT Narrative: There is tenderness, edema, and ecchymosis across the bridge of the nose. There is no septal deviation or septal hematoma noted. There is no epistaxis noted. Oral mucosa is pink and moist. trauma Nose: Negative for septum abnormal Eyes PERRL and EOMs intact bilaterally Neck full ROM Neuro oriented x3, CN's II-XII intact bilaterally, moves all extremities, no focal motor deficits, no sensory deficits noted and gait normal Malgorzata Coma Scale: document GCS findings Spontaneous Obeys Commands Oriented 15 Sensorium / Orientation: alert Motor Exam: strength 5/5 throughout Psych mental status grossly normal and thought process normal Skin no wounds MDM MDM MDM Narrative Medical decision making narrative: Differential diagnosis includes facial contusion, nasal bone fracture, and closed head injury. X-rays of the nasal bones will be obtained to assess for nasal fracture. Patient does not have any symptoms of concussion so I do not feel CT scan is necessary at this time. Radiography Diagnostic Testing: Clinical Impression(s) from Imaging Studies Nasal Bones X-Ray 05/07/22 22:18 IMPRESSION: No fracture. Electronically Signed: Sergio Rendon MD at 22:39 EST , X-rays of the nasal bones were obtained. There are 3 views. On my independent interpretation, there is no acute fracture. There is some mild soft tissue swelling. Radiologist also interpreted the x-rays and agrees. Treatment and Re-Evaluation Narrative: Patient was advised of her findings. Patient was instructed to use ice to the area. Patient was instructed to take Tylenol or ibuprofen as needed for pain. Patient was given a referral for ENT for follow-up in 1 to 2 weeks. Patient was instructed to return if worse in any way. Patient understood and was agreeable with the plan. All questions were answered. Discharge Plan Triage Chief Complaint: Other, Pain/Inj ED Provider: Jay Jaquez Dx/Rx/DC Orders Clinical Impression: Contusion of nose, initial encounter, Closed head injury Instructions: ED Facial Contusion, ED Nasal Contusion, ED Head Injury (Adult) Prescriptions: No Action metformin 500 mg tablet 500 mg PO BID Qty: 60 0RF ondansetron 4 mg tablet,disintegrating 4 mg PO Q6H PRN (Reason: nausea and vomiting) Qty: 7 0RF sulfamethoxazole-trimethoprim [Bactrim DS] 800-160 mg tablet 1 tab PO BID 7 Days Qty: 14 0RF cephalexin 500 mg capsule 500 mg PO TID 7 Days Qty: 21 0RF doxycycline hyclate 100 mg capsule 100 mg PO BID Qty: 20 0RF Stand Alone Forms: ED Work / School Excuse Primary Care Provider: Care Physician,No Primary Referrals: Care Physician,No Primary [Primary Care Provider] - Lew Millard MD [Med Staff - Active Staff] - 1-2 Weeks Disposition Disposition: Home, Self Care
[2022-05-07 23:49] VITALS: PULSE 67; RESP 18; O2SAT 100
== END 2022-05-07 23:49 | disposition home or self-care (01) ==
PROVIDERS: Emergency Provider Emergency Medicine; Visit Provider Emergency Medicine
DX: S00.33XA Contusion of nose, initial encounter (principal); E11.9 Type 2 diabetes mellitus without complications; F17.200 Nicotine dependence, unspecified, uncomplicated; W21.03XA Struck by baseball, initial encounter; Y93.64 Activity, baseball; S09.90XA Unspecified injury of head, initial encounter
CPT/HCPCS: 70160; 99282

== ENCOUNTER 2022-11-20 22:19 | Emergency (ER) | payer BC, MEDICAID, SELFPAY ==
[2022-11-20 22:21] VITALS: BP 125/88; PULSE 90; RESP 16; TEMP 36.4; O2SAT 100; BMI 29.2
--- NOTE | 2022-11-20 22:35 | ED.VIS.GI ---
HPI HPI - GI History of Present Illness Chief Complaint: Abd Pain Informant: patient Abdominal Pain/Flank Pain Onset: Days (3) Context: Gradual Onset Timing: Intermittent Quality: - (Pressure) Location: RLQ and - (Suprapubic area) Worsened by: Nothing Relieved by: Nothing Nausea/Vomiting/Emesis GI Symptom: Positive for Nausea; Negative for Vomiting Diarrhea/Melena/Hematochezia GI Symptom: Negative for Diarrhea, Melena or Hematochezia Associated Symptoms Associated Symptoms: Negative for Dysuria, Frequency or Hematuria Narrative Narrative: Patient presents with abdominal pain that has been intermittent over the last 3 days. Patient states it became worse today. Patient states the pain is over the right lower abdomen and suprapubic area. Patient describes it as a pressure. Patient states nothing makes it better nothing makes it worse. Patient admits to some nausea but denies any vomiting. Patient denies any diarrhea, melena, or hematochezia. Patient denies any dysuria, frequency, or hematuria. Patient states she has a history of cervical cancer and no longer has menstrual periods. PFSH PFSH Medical History Diabetes FHx: chemotherapy Former smoker [place] filter in place Hernia Hx of cervical cancer Pulmonary embolism Smoker Home Medications ciprofloxacin HCl 500 mg tablet 500 mg PO BID #20 TABLETS 11/21/22 [Rx Last Taken Unknown] metronidazole 500 mg tablet 500 mg PO Q6H #40 tabs 11/21/22 [Rx Last Taken Unknown] Allergy/AdvReac Type Severity Reaction Status Date / Time Penicillins AdvReac Nausea/Vom/ Verified 11/20/22 22:23 Diarrhea Surgical History History of embolic filter insertion History of hernia repair Hx of colostomy Hx of ileostomy Social History Smoking Status: Current every day smoker tobacco type: cigarettes substance use type: does not use ROS ROS ED Constitutional Constitutional ED: Denies chills or fever(s) Eyes Eyes: Denies blurry vision or change in vision ENT ENT ED: Denies rhinorrhea or sore throat Cardiovascular Cardiovascular: Denies chest pain or palpitations Respiratory/Chest Respiratory/Chest: Denies cough or dyspnea Gastrointestinal Gastrointestinal: Reports abdominal pain and nausea; Denies diarrhea, melena or vomiting Genitourinary Genitourinary ED: Denies dysuria or hematuria Musculoskeletal Musculoskeletal: Reports back pain and neck pain Integumentary Denies abscess or rash Neurologic Neurologic: Reports headache(s); Denies weakness Allergic/Immunologic Allergic/Immunologic ED: Denies mouth swelling or urticaria EXAM Physical Exam Const Vital Signs: 11/20/22 22:21 11/21/22 00:20 Temperature 97.6 F L Temperature Source Temporal Pulse Rate 90 69 Respiratory Rate 16 15 Blood Pressure 125/88 H 102/71 Blood Pressure Mean 100 81 Pulse Ox 100 99 Oxygen Delivery Method Room Air Room Air Positive well nourished and well developed General Appearance ED: well developed and NAD HEENT Reports moist mucous membranes Neck supple and no JVD Resp normal respiratory effort and clear to auscultation bilaterally Cardio regular rate, regular rhythm and no murmurs GI normal to inspection, nondistended, normoactive bowel sounds Palpation: soft and tender RLQ and suprapubic; Negative for guarding or rebound tenderness present Extremity normal to inspection General Extremety ED: Negative for edema or tenderness General Extremity: Negative for edema Neuro oriented x3, CN's II-XII intact bilaterally and no sensory deficits noted Sensorium / Orientation: alert Motor Exam: strength 5/5 throughout Psych mental status grossly normal Skin no rashes or lesions noted MDM MDM MDM Narrative Medical decision making narrative: Differential diagnosis includes bowel obstruction, perforation, appendicitis, gastroenteritis, colitis, diverticulitis, urinary tract infection, ureteral calculus, pyelonephritis, and mesenteric adenitis. CBC will be obtained to assess for leukocytosis and anemia. Basic metabolic profile will be obtained to assess for electrolyte abnormality and renal function. Urinalysis will be obtained to assess for urinary tract infection and hematuria. Serum hCG will be obtained to assess for . CT scan of the abdomen pelvis will be obtained to assess for bowel obstruction, perforation, and appendicitis. Lab Data Attestation: I reviewed the patient's lab results. Lab results narrative: CBC was reviewed and was within normal limits. Basic metabolic profile was reviewed. Glucose was elevated at 405. The remainder was within normal limits. Anion gap was normal. Serum hCG was reviewed and was negative. Urinalysis was reviewed. There is a leukocyte esterase of 25 and positive nitrites. There are 25-50 white blood cells. Occult blood was 150 with 5-10 red blood cells. Labs: Laboratory Results - last 24 hr 11/20/22 22:40 WBC 7.1 RBC 4.73 Hgb 14.1 Hct 42.4 MCV 89.6 MCH 29.8 MCHC 33.3 RDW Std Deviation 40.0 RDW Coeff of Jennifer 12.2 Plt Count 269 MPV 9.5 Immature Gran % (Auto) 0.400 Neut % (Auto) 70.6 H Lymph % (Auto) 19.7 [place] % (Auto) 6.7 Eos % (Auto) 2.2 Baso % (Auto) 0.4 Absolute Neuts (auto) 5.0 Absolute Lymphs (auto) 1.40 Nucleated RBC % 0 Sodium 133 L Potassium 3.7 Chloride 101 Carbon Dioxide 28.0 Anion Gap 4 L BUN 11 Creatinine 0.70 Estim Creat Clear Calc 85.72 Est GFR (MDRD) Af Amer 117 Est GFR (MDRD) Non-Af 97 BUN/Creatinine Ratio 15.7 Glucose 405 H Calcium 8.7 Serum , Qual NEGATIVE Urine Color Yellow Urine Clarity Sl. Cloudy Urine pH 7.0 Ur Specific [place] 1.010 Urine Protein 15 H Urine Glucose (UA) 1000 H Urine Ketones Negative Urine Occult Blood 150 H Urine Nitrite Positive H Urine Bilirubin Negative Urine Urobilinogen Normal Ur Leukocyte Esterase 25 H Urine RBC 5-10 SEEN Urine WBC 25-50 SEEN Ur Squamous Epith Cells 0-5 SEEN Urine Bacteria RARE Urine Mucus 0 SEEN Radiography Diagnostic Testing: Clinical Impression(s) from Imaging Studies Abdomen/Pelvis CT 11/21/22 22:40 IMPRESSION: 1. Air in the urinary bladder presumably due to recent instrumentation. In the absence of instrumentation, this can be seen with acute emphysematous cystitis or other process including fistula. 2. Localized collection in the right abdomen from the inferior tip of the liver along the paracolic gutter is increased in overall size, with soft tissue nodular component and decreased cystic component compared to prior. This is uncertain etiology differential includes postsurgical change or metastatic focus. 3. Focally dilated small bowel centrally in the midabdomen with prominent folds likely related to surgical anastomosis possibly enteritis. Partial or intermittent bowel obstruction less likely. 4. Uterus heterogeneous with questionable fibroid on the right not well assessed. This could be correlated with pelvic ultrasound if clinically indicated. Electronically Signed: Yovana Hooks MD at 0:44 EDT , CT scan of the abdomen and pelvis was obtained. There is air in the bladder. There is a localized collection in the right abdomen from the inferior tip of the liver along the paracolic gutter. There is a soft tissue nodular component and decreased cystic component compared to previous CT scan. This could be postsurgical changes or metastatic focus. There is dilated small bowel in the mid abdomen likely related to surgical anastomosis or possibly enteritis. This was interpreted by the radiologist and was also independently reviewed by myself. Treatment and Re-Evaluation :: Patient was given IV fluids, morphine, and Zofran. Patient feels better on reevaluation. Patient was advised of her findings. Patient is hemodynamically stable. Patient is afebrile. Patient denies having a recent straight catheter or [place] catheter. Patient was given a dose of Levaquin here. Patient was given a dose of insulin. Patient was given prescriptions for Cipro and Flagyl to cover for both urinary tract infection and enteritis. Patient was instructed to follow-up with her primary care physician in 3 to 5 days for reevaluation. Patient was instructed to continue to monitor her blood sugars. Patient was instructed to return if worse in any way. Patient understood and was agreeable with the plan. All questions were answered. Discharge Plan Triage Chief Complaint: Abd Pain ED Provider: Jay Jaquez Dx/Rx/DC Orders Clinical Impression: Urinary tract infection, Cervical cancer, Hyperglycemia Instructions: ED Diabetic Hyperglycemia, ED Cystitis Female Adult Prescriptions: New metronidazole [metronidazole] 500 mg tablet 500 mg PO Q6H Qty: 40 0RF ciprofloxacin HCl [ciprofloxacin HCl] 500 mg tablet 500 mg PO BID Qty: 20 0RF Primary Care Provider: Care Physician,No Primary Referrals: Ana Luisa Davidson DO [Med Staff - Active Staff] - 5-7 Days Kimberly Daily MD [Med Staff - Allergy Nurse] - 3-5 Days Care Physician,No Primary [Primary Care Provider] - Disposition Disposition: Home, Self Care
[2022-11-20] MEDS: 0.9% Normal Saline 1,000 ML 1000 ML IV (22:50)
[2022-11-20] MEDS: Ondansetron 4 MG/2 ML Vial IV (22:51)
[2022-11-20] MEDS: Morphine 4 MG/ML Syringe IV (22:51)
[2022-11-20 22:59] LABS: Mucous, Urine 0 SEEN /hpf (<or=2+)
[2022-11-20 23:00] LABS: Basophil# 0.03 X10^3/uL; Basophil% 0.4 % (0-1); Eosinophil# 0.16 X10^3/uL; Eosinophils% 2.2 % (0-5); Hematocrit 42.4 % (37-47); Hemoglobin 14.1 g/dL (12.0-15.0); Lymphocyte % 19.7 % (19-41); Mean Corp Hgb Conc 33.3 g/dL (32-36); Mean Corpuscular Hgb 29.8 pg (27.0-32.0); Mean Corpuscular Volume 89.6 fL (81-99); Mean Platelet Vol. 9.5 fl (6.2-12.0); Monocyte# 0.48 X10^3/uL; Monocyte% 6.7 % (0-10); NRBC Flagged by Analyzer 0 % (0-5); Neutrophil # 5.02 X10^3/uL (2.7-7.7); Neutrophil % 70.6 % (47-70); Platelet Count 269 K/mm3 (150-450); RBC Distribution Width CV 12.2 % (11.6-14.6); Red Blood Count 4.73 M/mm3 (4.2-5.4); White Blood Count 7.1 K/mm3 (4.4-11.0)
[2022-11-20 23:12] LABS: Color, Urine Yellow (Yellow); Glucose, Dipstick 1000 mg/dl (Normal); Ketone-Dipstick Negative (Negative); Leukocyte Esterase-Dipstick 25 /ul (Negative); Nitrite-Dipstick Positive (Negative); Occult Blood-Urine 150 /ul (Negative); Protein-Dipstick 15 mg/dl (Negative); Urine Bilirubin Dipstick Negative (Negative); Urine Clarity Sl. Cloudy (Clear); Urine Urobilinogen Normal (Normal)
[2022-11-20 23:16] LABS: Internal QC Validated? YES +Cl - CLEAR BKGD; Pregnancy, Serum, hCG Quali. NEGATIVE Negative
[2022-11-20 23:18] LABS: White Blood Cells 25-50 SEEN /hpf (0-5)
[2022-11-20 23:19] LABS: Bacteria RARE /hpf (None Seen); Red Blood Cells-Urine 5-10 SEEN /hpf (0-5); Squamous Epithelial Cells - UA 0-5 SEEN /hpf (5-10)
[2022-11-20 23:21] LABS: Anion Gap 4 (5-15); BUN 11 mg/dL (7-18); BUN/Creat Ratio 15.7 RATIO (10-20); Calcium,Total 8.7 mg/dL (8.5-10.1); Chloride 101 mmol/L (98-107); EST Glomerular Filtration Rate 97 mL/min (>60); Est Glom Filt Rate - Afr Amer 117 mL/min (>60); Estimated Creatinine Clearance 85.72 ml/min; Glucose 405 mg/dL (74-106); Potassium 3.7 mmol/L (3.5-5.1); Sodium Level 133 mmol/L (136-145)
[2022-11-21 00:20] VITALS: BP 102/71; PULSE 69; RESP 15; O2SAT 99
[2022-11-21] MEDS: Insulin Lispro 100 UNIT/ML INSULN.PEN 10 UNIT SC (01:38)
[2022-11-21] MEDS: levoFLOXacin IV 750 MG/150 ML BAG 100 MG IV (01:40)
[2022-11-21 02:21] VITALS: PULSE 68; RESP 17; O2SAT 98
--- NOTE | 2022-11-21 22:40 | CT_ITS ---
EXAM: CT Abdomen And Pelvis W/ Contrast Injection HISTORY: Abdominal pain -- IV PO Contrast bladder pain that radiates to the right side x 3 days, hx cervical ca, [place] filter, pe, diab, prev colostomy, ileostomy TECHNIQUE: Routine protocol CT abdomen pelvis. IV Contrast: Oral and amp; IV Gastrografin and amp; 100mL [id number]-[id number] . Oral Contrast: with. Sagittal and coronal images were reconstructed. RADIATION DOSAGE (If Supplied By Facility): CTDIvol = ( 13.35 ) mGy, DLP = ( 892.40 ) mGycm Individualized dose optimization techniques were used for this CT. COMPARISON: CT abdomen and pelvis 11/22/2021. LIMITATIONS: None. FINDINGS: LOWER CHEST: Dependent atelectasis in the lung bases. LIVER: Unremarkable. GALLBLADDER/BILE DUCTS: Unremarkable. PANCREAS: Unremarkable. SPLEEN: Unremarkable. ADRENAL GLANDS: Unremarkable. KIDNEYS / URETERS: Unremarkable. BOWEL / MESENTERY: Surgical clips at multiple sites in the abdomen. Short segment of moderately dilated small bowel centrally in the abdomen adjacent to surgical sutures likely distortion with postsurgical changes, although is more dilated compared to prior, with associated fold thickening. Oral contrast distal to this level to the distal small bowel. No bowel obstruction. APPENDIX: Not identified. PERITONEUM: No free air. Small focal fluid collection on the right adjacent to the inferior tip of the liver extending along the right paracolic gutter is increased compared to prior, with associated complex soft tissue structure in the region and adjacent surgical clips. The cystic structure previously noted in this region is decreased. Overall size of the collection approximately 5 x 2.8 cm axial by 9 cm craniocaudal is increased compared to prior. VESSELS: Abdominal aorta is normal caliber. IVC filter tip below the renal veins. RETROPERITONEUM: Unremarkable. REPRODUCTIVE ORGANS: Uterus is heterogeneous with area of decreased attenuation along the right lateral aspect possibly a fibroid approximately 2 cm but not well assessed. BLADDER: Moderately distended. Small amount of air in the bladder presumably related to recent instrumentation. ABDOMINAL WALL: Unremarkable. BONES: No acute abnormality. OTHER: None. CT/Abdomen/Pelvis WITH Contrast IMPRESSION: 1. Air in the urinary bladder presumably due to recent instrumentation. In the absence of instrumentation, this can be seen with acute emphysematous cystitis or other process including fistula. 2. Localized collection in the right abdomen from the inferior tip of the liver along the paracolic gutter is increased in overall size, with soft tissue nodular component and decreased cystic component compared to prior. This is uncertain etiology differential includes postsurgical change or metastatic focus. 3. Focally dilated small bowel centrally in the midabdomen with prominent folds likely related to surgical anastomosis possibly enteritis. Partial or intermittent bowel obstruction less likely. 4. Uterus heterogeneous with questionable fibroid on the right not well assessed. This could be correlated with pelvic ultrasound if clinically indicated. Electronically Signed: Yovana Hooks MD at 0:44 EDT ,
== END 2022-11-21 03:11 | disposition home or self-care (01) ==
PROVIDERS: Emergency Provider Emergency Medicine; Visit Provider Emergency Medicine
DX: N39.0 Urinary tract infection, site not specified (principal); C53.9 Malignant neoplasm of cervix uteri, unspecified; E11.65 Type 2 diabetes mellitus with hyperglycemia; R19.7 Diarrhea, unspecified; F17.210 Nicotine dependence, cigarettes, uncomplicated
CPT/HCPCS: 74177; 80048; 81001; 84703; 85025; 87077; 87086; 87088; 87186; 96365; 96366; 96375; 99283; J7030; Q9967; J2405

== ENCOUNTER 2022-11-24 12:09 | Emergency (ER) | payer BC, MEDICAID, SELFPAY ==
[2022-11-24 12:10] VITALS: BP 126/84; PULSE 97; RESP 16; TEMP 36.6; O2SAT 98; BMI 30.1
--- NOTE | 2022-11-24 12:31 | EDS_ITS ---
HPI <ISA Guevara - Last Filed: 11/24/22 14:26> History of Present Illness Chief Complaint: Abd Pain Narrative Narrative: 42-year-old female with PMH of cervical cancer s/p radiation presents with about a week of right lower quadrant/pelvic pain. She was seen in [place] ED on 10/22 and had labs and a CT. She was prescribed Cipro and Flagyl to cover both enteritis and UTI. She took 2 days of antibiotics but it caused constipation so she stopped. She saw her [employer] and had a Pap smear and has an upcoming ultrasound scheduled. She states the pressure is still there and she feels pressure with urination as well. She is here to figure out what it is. She reports having a fever and nausea but no vomiting. She has had multiple abdominal surgeries due to damage to her bowels from radiation. She had a normal BM this morning. PFSH <ISA Guevara - Last Filed: 11/24/22 14:26> PFSH Medical History Diabetes FHx: chemotherapy Former smoker [place] filter in place Hernia Hx of cervical cancer Pulmonary embolism Smoker Home Medications ciprofloxacin HCl 500 mg tablet 500 mg PO BID #20 TABLETS 11/21/22 [Rx Last Taken Unknown] metronidazole 500 mg tablet 500 mg PO Q6H #40 tabs 11/21/22 [Rx Last Taken Unknown] Allergy/AdvReac Type Severity Reaction Status Date / Time Penicillins AdvReac Nausea/Vom/ Verified 11/24/22 12:10 Diarrhea Surgical History History of embolic filter insertion History of hernia repair Hx of colostomy Hx of ileostomy Social History Smoking Status: Current every day smoker tobacco type: cigarettes substance use type: does not use ROS <ISA Guevara Last Filed: 11/24/22 14:26> ROS ED ROS Narrative Constitutional: Positive for fever. Negative for chills CVS: Negative for chest pain. Respiratory: Negative for shortness of breath GI: Positive for abdominal pain, nausea. Negative for vomiting, diarrhea, melena, hematochezia. : Negative for dysuria. EXAM <ISA Guevara Last Filed: 11/24/22 14:26> Physical Exam Narrative Exam Narrative: CONST: Patient sitting in no acute distress. EYES: Normal inspection. NECK: Normal inspection. RESP: No respiratory distress, CTAB. CVS: Regular rate and rhythm, no murmur, no gallop. ABD: Soft and nontender, no guarding or rebound, nondistended. SKIN: Color normal, no rash, warm, dry, intact. EXTREMITIES: Normal appearance, no pedal edema. NEURO: Oriented x4. PSYCH: Normal affect. Const Vital Signs: 11/24/22 12:10 11/24/22 14:30 Temperature 98 F Temperature Source Temporal Pulse Rate 97 72 Respiratory Rate 16 15 Blood Pressure 126/84 H 124/63 H Blood Pressure Mean 98 Pulse Ox 98 97 Oxygen Delivery Method Room Air <Rafita Morales MD - Last Filed: 11/24/22 14:40> Physical Exam Const Vital Signs: 11/24/22 12:10 11/24/22 14:30 Temperature 98 F Temperature Source Temporal Pulse Rate 97 72 Respiratory Rate 16 15 Blood Pressure 126/84 H 124/63 H Blood Pressure Mean 98 Pulse Ox 98 97 Oxygen Delivery Method Room Air MDM <ISA Guevara - Last Filed: 11/24/22 14:26> [facility] MDM Narrative Medical decision making narrative: Patient presents with persistent right pelvic pain. She appears well nontoxic and is afebrile with normal vital signs. She indicates pain is in the right suprapubic/pelvic area but there is no reproducible tenderness. No hernia. No CVA tenderness. Reviewed all of her recent imaging in the last week including 2 CT scans and a pelvic ultrasound. It showed possible cystitis and a small fluid collection in the right pelvis thought to be a seroma or pelvic inclusion cyst. Blood work today shows normal white count of 4.5. Only abnormality is glucose of 458 with no DKA. She is not compliant with her metformin because it was causing her diarrhea. She was given 10 units of subcutaneous insulin here and advised to take the metformin until she follows up with her new PCP. Urinalysis and test are negative. I am not sure of the cause of this right pelvic pain?it may be related to the small fluid collection. With no fever and normal white count and benign abdominal exam I do not think it is an abscess (all imaging thought it was likely a seroma). I did not do a pelvic exam as she just had 1 with a Pap smear at her [employer]. I recommend she follow-up with her PCP and [employer] and she was discharged in stable condition. External records reviewed: 11/21/2022 CT abdomen/pelvis at [place] [facility] had multiple findings: 1. Air in the bladder consistent with cystitis 2. Localized collection in right abdomen includes postsurgical changes versus metastatic focus 3. Dilated central small bowel with prominent folds could be surgical anastomosis or enteritis. [facility] records: CT abdomen/pelvis 11/22/2022 showed mild cystitis, loculated fluid in right pelvis thought to be seroma or pelvic inclusion cyst. No other acute findings. Pelvic ultrasound 11/23/[address] Ovaries not identified, previously seen 6 cm right pelvic fluid collection not identified on ultrasound. Probable uterine fibroid. Nonspecific debris in the urinary bladder. Lab Data Labs: Laboratory Results - last 24 hr 11/24/22 11/24/22 12:35 13:40 WBC 4.5 RBC 4.63 Hgb 13.7 Hct 40.8 MCV 88.1 MCH 29.6 MCHC 33.6 RDW Std Deviation 39.0 RDW Coeff of Jennifer 12.1 Plt Count 229 MPV 9.2 Immature Gran % (Auto) 0.400 Neut % (Auto) 66.2 Lymph % (Auto) 21.6 Jay % (Auto) 9.3 Eos % (Auto) 1.8 Baso % (Auto) 0.7 Absolute Neuts (auto) 3.0 Absolute Lymphs (auto) 0.98 Nucleated RBC % 0 Sodium 135 L Potassium 4.0 Chloride 100 Carbon Dioxide 28.0 Anion Gap 7 BUN 10 Creatinine 0.78 Estim Creat Clear Calc 76.93 Est GFR (MDRD) Af Amer 104 Est GFR (MDRD) Non-Af 86 BUN/Creatinine Ratio 12.8 Glucose 458 H* Calcium 8.9 Urine Color Yellow Urine Clarity Clear Urine pH 6.0 Ur Specific [place] 1.015 Urine Protein Negative Urine Glucose (UA) 1000 H Urine Ketones Negative Urine Occult Blood 10 H Urine Nitrite Negative Urine Bilirubin Negative Urine Urobilinogen Normal Ur Leukocyte Esterase Negative Urine RBC 0 SEEN Urine WBC 0-5 SEEN Ur Squamous Epith Cells 0 SEEN Urine Bacteria 0 SEEN Urine Mucus 0 SEEN Urine Test Negative <Rafita Morales MD - Last Filed: 11/24/22 14:40> [facility] MDM Narrative Medical decision making narrative: Patient presents with persistent right pelvic pain. She appears well nontoxic and is afebrile with normal vital signs. She indicates pain is in the right suprapubic/pelvic area but there is no reproducible tenderness. No hernia. No CVA tenderness. Reviewed all of her recent imaging in the last week including 2 CT scans and a pelvic ultrasound. It showed possible cystitis and a small fluid collection in the right pelvis thought to be a seroma or pelvic inclusion cyst. Blood work today shows normal white count of 4.5. Only abnormality is glucose of 458 with no DKA. She is not compliant with her metformin because it was causing her diarrhea. She was given 10 units of subcutaneous insulin here and advised to take the metformin until she follows up with her new PCP. Urinalysis and test are negative. I am not sure of the cause of this right pelvic pain?it may be related to the small fluid collection. With no fever and normal white count and benign abdominal exam I do not think it is an abscess (all imaging thought it was likely a seroma). I did not do a pelvic exam as she just had 1 with a Pap smear at her [employer]. I recommend she follow-up with her PCP and [employer] and she was discharged in stable condition. External records reviewed: 11/21/2022 CT abdomen/pelvis at [place] [facility] had multiple findings: 1. Air in the bladder consistent with cystitis 2. Localized collection in right abdomen includes postsurgical changes versus metastatic focus 3. Dilated central small bowel with prominent folds could be surgical anastomosis or enteritis. [facility] records: CT abdomen/pelvis 11/22/2022 showed mild cystitis, loculated fluid in right pelvis thought to be seroma or pelvic inclusion cyst. No other acute findings. Pelvic ultrasound 11/23/[address] Ovaries not identified, previously seen 6 cm right pelvic fluid collection not identified on ultrasound. Probable uterine fibroid. Nonspecific debris in the urinary bladder. Dr. Morales: Patient was inadvertently discharged and wanted to leave the emergency department prior to my independent evaluation, history and physical. However, I had discussed with the [facility] management of this patient extensively who had been seen in the emergency department just a few days prior. I also reviewed with h er the external records where she had imaging performed. My landa findings include: History is abdominal pain, recently seen in the emergency department where CT was performed. Went to an outside facility where she had ultrasound performed. Exam is unable to perform independently. Medical Decision Making: In discussion with the [facility], I do not feel that repeat imaging is indicated as she has had it within the last week. Recheck labs. Follow-up as outpatient. Patient has elevated blood sugar but reported that she quit taking her metformin. She was encouraged to take her medications as previously directed. Other additions or changes: [None] History & Record Review Additional record(s) reviewed:: Prior outpatient record, Prior ED visit and Prior labs Lab Data Attestation: I reviewed the patient's lab results. Labs: Laboratory Results - last 24 hr 11/24/22 11/24/22 12:35 13:40 WBC 4.5 RBC 4.63 Hgb 13.7 Hct 40.8 MCV 88.1 MCH 29.6 MCHC 33.6 RDW Std Deviation 39.0 RDW Coeff of Jennifer 12.1 Plt Count 229 MPV 9.2 Immature Gran % (Auto) 0.400 Neut % (Auto) 66.2 Lymph % (Auto) 21.6 Jay % (Auto) 9.3 Eos % (Auto) 1.8 Baso % (Auto) 0.7 Absolute Neuts (auto) 3.0 Absolute Lymphs (auto) 0.98 Nucleated RBC % 0 Sodium 135 L Potassium 4.0 Chloride 100 Carbon Dioxide 28.0 Anion Gap 7 BUN 10 Creatinine 0.78 Estim Creat Clear Calc 76.93 Est GFR (MDRD) Af Amer 104 Est GFR (MDRD) Non-Af 86 BUN/Creatinine Ratio 12.8 Glucose 458 H* Calcium 8.9 Urine Color Yellow Urine Clarity Clear Urine pH 6.0 Ur Specific [place] 1.015 Urine Protein Negative Urine Glucose (UA) 1000 H Urine Ketones Negative Urine Occult Blood 10 H Urine Nitrite Negative Urine Bilirubin Negative Urine Urobilinogen Normal Ur Leukocyte Esterase Negative Urine RBC 0 SEEN Urine WBC 0-5 SEEN Ur Squamous Epith Cells 0 SEEN Urine Bacteria 0 SEEN Urine Mucus 0 SEEN Urine Test Negative Discharge Plan Triage Chief Complaint: Abd Pain ED Midlevel Provider: Neelam Faustin ED Provider: Rafita Morales Dx/Rx/DC Orders Clinical Impression: Pelvic pain, Diabetes mellitus with hyperglycemia, Noncompliance with medications Instructions: Abdominal Pain Prescriptions: No Action metronidazole [metronidazole] 500 mg tablet 500 mg PO Q6H Qty: 40 0RF ciprofloxacin HCl [ciprofloxacin HCl] 500 mg tablet 500 mg PO BID Qty: 20 0RF Primary Care Provider: Care Physician,No Primary Referrals: Elena Hanson MD [Med Staff - Active Staff] - Care Physician,No Primary [Primary Care Provider] - Activity Restrictions/Additional Instructions: Your blood work overall looks normal other than very high blood sugar level. Y ou need to take your metformin as prescribed until you follow-up with a new PCP or your high blood sugar could cause complications and illness. Follow-up with your [employer]/PCP for further care. Disposition Disposition: Home, Self Care Discharge Date/Time: 11/24/22 14:31
[2022-11-24 12:44] LABS: Absolute Lymphocyte Count 0.98 X10^3/uL (0.83-4.51); Basophil# 0.03 X10^3/uL; Basophil% 0.7 % (0-1); Eosinophil# 0.08 X10^3/uL; Eosinophils% 1.8 % (0-5); Hematocrit 40.8 % (37-47); Hemoglobin 13.7 g/dL (12.0-15.0); Lymphocyte # 0.98 X10^3/ul (0.83-4.51); Lymphocyte % 21.6 % (19-41); Mean Corp Hgb Conc 33.6 g/dL (32-36); Mean Corpuscular Hgb 29.6 pg (27.0-32.0); Mean Corpuscular Volume 88.1 fL (81-99); Mean Platelet Vol. 9.2 fl (6.2-12.0); Monocyte# 0.42 X10^3/uL; Monocyte% 9.3 % (0-10); NRBC Flagged by Analyzer 0 % (0-5); Neutrophil # 3.01 X10^3/uL (2.7-7.7); Neutrophil % 66.2 % (47-70); Platelet Count 229 K/mm3 (150-450); RBC Distribution Width CV 12.1 % (11.6-14.6); Red Blood Count 4.63 M/mm3 (4.2-5.4); White Blood Count 4.5 K/mm3 (4.4-11.0)
[2022-11-24] MEDS: Ondansetron 4 MG/2 ML Vial IV (12:54)
[2022-11-24 13:06] LABS: Anion Gap 7 (5-15); BUN 10 mg/dL (7-18); BUN/Creat Ratio 12.8 RATIO (10-20); Calcium,Total 8.9 mg/dL (8.5-10.1); Chloride 100 mmol/L (98-107); Creatinine, Serum 0.78 mg/dL (0.55-1.02); EST Glomerular Filtration Rate 86 mL/min (>60); Est Glom Filt Rate - Afr Amer 104 mL/min (>60); Estimated Creatinine Clearance 76.93 ml/min; Glucose 458 mg/dL (74-106); Sodium Level 135 mmol/L (136-145)
[2022-11-24 13:45] LABS: Bacteria 0 SEEN /hpf (None Seen); Mucous, Urine 0 SEEN /hpf (<or=2+); Red Blood Cells-Urine 0 SEEN /hpf (0-5); Squamous Epithelial Cells - UA 0 SEEN /hpf (5-10)
[2022-11-24 13:47] LABS: Color, Urine Yellow (Yellow); Glucose, Dipstick 1000 mg/dl (Normal); Ketone-Dipstick Negative (Negative); Leukocyte Esterase-Dipstick Negative /ul (Negative); Nitrite-Dipstick Negative (Negative); Occult Blood-Urine 10 /ul (Negative); Protein-Dipstick Negative (Negative); Specific Gravity, Urine 1.015 (1.002-1.030); Urine Bilirubin Dipstick Negative (Negative); Urine Clarity Clear (Clear); Urine Urobilinogen Normal (Normal)
[2022-11-24] MEDS: Insulin Lispro 100 UNIT/ML INSULN.PEN 10 UNIT SC (13:55)
[2022-11-24 14:11] LABS: Internal QC Validated? YES +Cl - CLEAR BKGD; Pregnancy, Urine Negative Negative; Record Kit Lot#,Urine Preg 667200; White Blood Cells 0-5 SEEN /hpf (0-5)
[2022-11-24 14:30] VITALS: BP 124/63; PULSE 72; RESP 15; O2SAT 97
== END 2022-11-24 14:31 | disposition home or self-care (01) ==
PROVIDERS: Physician Assistant; Emergency Provider Emergency Medicine; Visit Provider Emergency Medicine
DX: R10.2 Pelvic and perineal pain (principal); E11.65 Type 2 diabetes mellitus with hyperglycemia; Z91.148 Patient's other noncompliance with medication regimen for other reason; Z79.84 Long term (current) use of oral hypoglycemic drugs; F17.200 Nicotine dependence, unspecified, uncomplicated; Z85.41 Personal history of malignant neoplasm of cervix uteri; Z86.711 Personal history of pulmonary embolism
CPT/HCPCS: 80048; 81001; 81025; 85025; 99283; A4216; J2405

== ENCOUNTER 2024-04-04 16:19 | Emergency (ER) | payer BC, SELFPAY ==
[2024-04-04 16:20] VITALS: BP 127/84; PULSE 102; RESP 18; TEMP 36.1; O2SAT 99; BMI 32.3
--- NOTE | 2024-04-04 16:35 | ED.RN ---
PT HAS HX OF CERVICAL CANCER AND HAD A OSTOMY BAG D/T HER BOWEL WALL BEING DAMAGED ROM RADIATION. PT HAS REOCCURRING HEMORRHOIDS AND MANUALLY IS ABLE TO PUSH THEM BACK IN. SHE HAS TRIED A BATH, TUCKS AND CREAM. C/O PAIN 10/10 AND IS UNABLE TO PUSH IT BACK IN. PASSING GAS BUT HAS NOT HAD A BM FOR 4 DAYS. DENIES ANY BLEEDING IN STOOL OR WHEN WIPING.
--- NOTE | 2024-04-04 16:58 | EDS_ITS ---
HPI <ISA Guevara - Last Filed: 04/04/24 17:32> History of Present Illness Chief Complaint: Other, Pain/Inj Narrative Narrative: 43-year-old female presents with rectal pain X 1 week she attributes to hemorrhoids. She states she has a long history of hemorrhoids and this time flared up a week ago. She has been using Tucks pads and cpho-dgk-srankna preparation H which she puts on multiple times throughout the day. She has been soaking in warm baths. She denies bleeding. Her last bowel movement was a few days ago without melena or hematochezia. No abdominal pain. She has a history of multiple abdominal surgeries due to cervical cancer treated with radiation causing bowel problems. She had colostomy and reversal done including clinic main campus. She no longer follows with the surgeon. She cannot remember if she had a hemorrhoid surgery or not. PFSH <ISA Guevara - Last Filed: 04/04/24 17:32> PFSH Medical History Diabetes FHx: chemotherapy Former smoker B[place] filter in place Hernia Hx of cervical cancer Pulmonary embolism Smoker Home Medications ?Medication ?Instructions ?Recorded ?Last Taken ?Type ciprofloxacin HCl 500 mg tablet 500 mg PO BID #20 TABLETS 11/21/22 Unknown Rx metronidazole 500 mg tablet 500 mg PO Q6H #40 tabs 11/21/22 Unknown Rx clotrimazole 1 % topical cream 1 applic topical BID 2 weeks #15 04/04/24 Unknown Rx grams hydrocodone-acetaminophen 5-325mg 1 tab PO Q8H PRN pain 3 days #9 04/04/24 Unknown Rx 5mg-325mg tabs Allergy/AdvReac Type Severity Reaction Status Date / Time Penicillins AdvReac Nausea/Vom/ Verified 04/04/24 16:20 Diarrhea Surgical History History of embolic filter insertion History of hernia repair Hx of colostomy Hx of ileostomy Social History Smoking Status: Current every day smoker tobacco type: cigarettes substance use type: does not use ROS <ISA Guevara - Last Filed: 04/04/24 17:32> ROS ED ROS Narrative Constitutional: Negative for fever, chills, malaise. GI: Negative for abdominal pain, nausea, vomiting, diarrhea. : Negative for dysuria. EXAM <ISA Guevara - Last Filed: 04/04/24 17:32> Physical Exam Narrative Exam Narrative: CONST: Patient sitting in no acute distress. EYES: Normal inspection. NECK: Normal inspection. RESP: No respiratory distress, CTAB. CVS: Regular rate and rhythm, no murmur, no gallop. ABD: Soft and nontender, no guarding or rebound, nondistended. Rectum: Perianal area has moist excoriated erythematous skin. No significant hemorrhoids, specifically no thrombosed hemorrhoid. Normal rectal exam. There is no involvement of the perineum. SKIN: Color normal, no rash, warm, dry, intact. EXTREMITIES: Normal appearance, no pedal edema. NEURO: Alert and answering questions appropriately. PSYCH: Normal affect. Const Vital Signs: 04/04/24 16:20 04/04/24 16:31 Temperature 97 F L Temperature Source Temporal Pulse Rate 102 H Respiratory Rate 18 Respiratory Effort Normal Respiratory Pattern Normal Blood Pressure 127/84 H Blood Pressure Mean 98 Pulse Ox 99 Oxygen Delivery Method Room Air <Dr. Rafael Alvarez DO - Last Filed: 04/04/24 17:04> Physical Exam Const Vital Signs: 04/04/24 16:20 04/04/24 16:31 Temperature 97 F L Temperature Source Temporal Pulse Rate 102 H Respiratory Rate 18 Respiratory Effort Normal Respiratory Pattern Normal Blood Pressure 127/84 H Blood Pressure Mean 98 Pulse Ox 99 Oxygen Delivery Method Room Air MDM <ISA Guevara - Last Filed: 04/04/24 17:32> [facility] Narrative Medical decision making narrative: 43-year-old female presents for evaluation of hemorrhoids and perianal discomfort. On exam there are no hemorrhoids, but she has perianal excoriation, erythema, and moisture which is tender to touch. It looks consistent with a candidal infection. She has no internal digital rectal pain. I suspect with all of the bathing and cream she has been putting on the area in order to treat a hemorrhoid that could have caused this excoriation. I recommended she switch to keeping the area dry, I prescribed an antifungal cream and [place] for breakthrough pain. She was counseled to take stool softeners if she uses this. She should follow-up with GI and was discharged in stable condition. I have personally performed a face to face assessment of the patient and have reviewed the ELISABET Note. I performed a substantive portion of the visit including all aspects of the following. My landa findings include: History is [patient presents with rectal pain and concern for hemorrhoid. States that over the last 3 to 4 days she has had aching worsening discomfort with bowel movement. She has been using giez-shc-byiumms remedies and sitz bath's and not having much relief. Patient denies any fevers or chills or sweats. She denies abdominal pain.] Exam is [HEENT-PERRLA, EOMI. Cranial nerves II through XII grossly intact. TMs clear. Mucous membranes moist. No adenopathy. Cardiovascular-regular rate and rhythm without murmur or ectopy Lungs-clear to auscultation, chest wall stable without crepitus or subcu emphysema Abdomen-normoactive bowel sounds, soft, nontender, no rebound or rigidity, no p eritoneal signs. Rectal exam-no significant hemorrhoids. There is no evidence of thrombosed hemorrhoid. She does have skin erythema and excoriation perirectally. On digital rectal exam there are no masses in the rectal vault and I do not palpate any significant internal hemorrhoids. Extremities-intact ?4, normal range of motion, normal pulses, atraumatic] Medical Decison Making [patient with erythema and excoriation perirectally and denuded skin. Concern for possible fungal infection. I recommended that she discontinue the sitz bath's and actually keep the area dry. Will start on antif ungal cream. We have a prescription for a few hydrocodone for pain and referral to GI for follow-up. Did not have significant discomfort with digital rectal exam so suspicion for proctitis is low.] Other additions or changes: [None] <Dr. Rafael Alvarez, DO - Last Filed: 04/04/24 17:04> [facility] Narrative Medical decision making narrative: I have personally performed a face to face assessment of the patient and have reviewed the ELISABET Note. I performed a substantive portion of the visit including all aspects of the following. My landa findings include: History is [patient presents with rectal pain and concern for hemorrhoid. States that over the last 3 to 4 days she has had aching worsening discomfort with bowel movement. She has been using wqtn-heh-awodbuw remedies and sitz bath's and not having much relief. Patient denies any fevers or chills or sweats. She denies abdominal pain.] Exam is [HEENT-PERRLA, EOMI. Cranial nerves II through XII grossly intact. TMs clear. Mucous membranes moist. No adenopathy. Cardiovascular-regular rate and rhythm without murmur or ectopy Lungs-clear to auscultation, chest wall stable without crepitus or subcu emphysema Abdomen-normoactive bowel sounds, soft, nontender, no rebound or rigidity, no peritoneal signs. Rectal exam-no significant hemorrhoids. There is no evidence of thrombosed hemorrhoid. She does have skin erythema and excoriation perirectally. On digital rectal exam there are no masses in the rectal vault and I do not palpate any significant internal hemorrhoids. Extremities-intact ?4, normal range of motion, normal pulses, atraumatic] Medical Decison Making [patient with erythema and excoriation perirectally and denuded skin. Concern for possible fungal infection. I recommended that she discontinue the sitz bath's and actually keep the area dry. Will start on antifungal cream. We have a prescription for a few hydrocodone for pain and referral to GI for follow-up. Did not have significant discomfort with digital rectal exam so suspicion for proctitis is low.] Other additions or changes: [None] Discharge Plan Triage Chief Complaint: Other, Pain/Inj ED Midlevel Provider: Neelam Faustin ED Provider: Rafael Alvarez Dx/Rx/DC Orders Clinical Impression: Candidiasis of anus, Anal or rectal pain Instructions: ED Juliana Skin Infection (Adult) Prescriptions: New clotrimazole 1 % cream 1 applic topical BID 14 Days Qty: 15 0RF hydrocodone-acetaminophen 5-325 mg tablet 1 tab PO Q8H PRN (Reason: pain) 3 Days Qty: 9 0RF No Action metronidazole [metronidazole] 500 mg tablet 500 mg PO Q6H Qty: 40 0RF ciprofloxacin HCl [ciprofloxacin HCl] 500 mg tablet 500 mg PO BID Qty: 20 0RF Primary Care Provider: Care Physician,No Primary Referrals: Friend,Ulises, [Med Staff - Active Staff] - Care Physician,No Primary [Primary Care Provider] - Activity Restrictions/Additional Instructions: It looks like a skin yeast infection around the rectum. Keep the area as dry as possible, after a shower gently pat the area dry. Put the antifungal cream on. While you take the pain medicine take the stool softener like docusate and MiraLAX to avoid constipation. Follow-up with a GI doctor. Print Language: Upper Sorbian Disposition Disposition: Home, Self Care Discharge Date/Time: 04/04/24 17:15
== END 2024-04-04 17:15 | disposition home or self-care (01) ==
PROVIDERS: Emergency Provider Emergency Medicine; Referring Provider Emergency Medicine; Visit Provider Emergency Medicine
DX: K62.89 Other specified diseases of anus and rectum (principal); Z93.3 Colostomy status; E11.9 Type 2 diabetes mellitus without complications; Z86.711 Personal history of pulmonary embolism; F17.210 Nicotine dependence, cigarettes, uncomplicated; B37.89 Other sites of candidiasis; Z85.41 Personal history of malignant neoplasm of cervix uteri

== ENCOUNTER 2024-06-22 13:05 | Emergency (ER) | payer BC, SELFPAY ==
[2024-06-22 13:06] VITALS: BP 102/55; PULSE 95; RESP 18; TEMP 36.2; O2SAT 100
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
[2024-06-22 13:49] LABS: Absolute Lymphocyte Count 1.47 X10^3/uL (0.83-4.51); Basophil# 0.03 X10^3/uL; Basophil% 0.5 % (0-1); Eosinophil# 0.11 X10^3/uL; Eosinophils% 1.8 % (0-5); Hematocrit 39.6 % (37-47); Lymphocyte # 1.47 X10^3/ul (0.83-4.51); Lymphocyte % 24.3 % (19-41); Mean Corp Hgb Conc 35.4 g/dL (32-36); Mean Corpuscular Volume 84.8 fL (81-99); Mean Platelet Vol. 8.9 fl (6.2-12.0); Monocyte% 6.6 % (0-10); NRBC Flagged by Analyzer 0 % (0-5); Neutrophil # 4.01 X10^3/uL (2.7-7.7); Neutrophil % 66.5 % (47-70); Platelet Count 270 K/mm3 (150-450); RBC Distribution Width CV 12.2 % (11.6-14.6); RBC Distribution Width SD 36.9 fl (35.1-43.9); Red Blood Count 4.67 M/mm3 (4.2-5.4)
[2024-06-22 13:59] LABS: Internal QC Validated? YES +Cl - CLEAR BKGD; Pregnancy, Serum, hCG Quali. NEGATIVE Negative; Record Kit Lot#, Serum Preg. 899023
[2024-06-22 14:19] LABS: ALB/GLOB Ratio 1.4 RATIO (0.9-2.4); AST(SGOT) 13 U/L (<=31); Alanine Aminotransfer ALT/SGPT 11 U/L (<=34); Alkaline Phosphatase 83 U/L (35-104); Anion Gap 11 (5-15); BUN 10 mg/dL (4-19); Carbon Dioxide 23.9 mmol/L (21.0-32.0); Chloride 101 mmol/L (98-108); Creatinine, Serum 0.54 mg/dL (0.70-1.20); EST Glomerular Filtration Rate 116 (>60); Globulin 2.8 g/dL (2.2-4.2); Glucose 365 mg/dL (70-99); Potassium 4.1 mmol/L (3.3-5.1); Protein, Total 6.8 g/dL (5.9-8.4); Sodium Level 136 mmol/L (133-145); Total Bilirubin 0.28 mg/dL (0.00-1.30)
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
[2024-06-22 14:42] VITALS: BP 128/98; PULSE 77; RESP 18; TEMP 36.8; O2SAT 98
[2024-06-22] MEDS: Morphine 4 MG/ML Syringe IV (14:42)
[2024-06-22] MEDS: Ondansetron 4 MG/2 ML Vial IV (14:42)
== END 2024-06-22 14:48 | disposition home or self-care (01) ==
PROVIDERS: Emergency Provider Emergency Medicine; PCP Family Medicine; Visit Provider Emergency Medicine
DX: S30.1XXA Contusion of abdominal wall, initial encounter (principal); E11.9 Type 2 diabetes mellitus without complications; S20.219A Contusion of unspecified front wall of thorax, initial encounter; F17.210 Nicotine dependence, cigarettes, uncomplicated; Z86.711 Personal history of pulmonary embolism; Y93.83 Activity, rough housing and horseplay; W51.XXXA Accidental striking against or bumped into by another person, initial encounter; Z85.41 Personal history of malignant neoplasm of cervix uteri
CPT/HCPCS: 74160; 80053; 84703; 85025; 96374; 96375; 99284; Q9967; A4216; J2405

== ENCOUNTER 2024-06-28 19:00 | Emergency (ER) | payer BC, SELFPAY ==
[2024-06-28 19:01] VITALS: BP 133/100; PULSE 95; RESP 19; TEMP 36.6; O2SAT 98; BMI 32.9
[2024-06-28 23:01] VITALS: RESP 16
--- NOTE | 2024-06-29 00:03 | CT_ITS ---
PROCEDURE: CTA CHEST W/WO CONTRAST 06/28/2024 REASON FOR EXAM: CHEST PAIN WITH PMHX OF PE TECHNIQUE: CTA axial imaging of the chest with intravenous contrast. Coronal and Sagittal reconstruction series were provided. 3D, 3D post processing, 3D reconstructions, Maximum intensity projection (MIPs) Volume rendering and Shaded surface rendering was provided. PATIENT PREPARATION: Per protocol CONTRAST: Isovue 370 VOLUME: 100 mL 18 gauge IV One or more dose reduction techniques were used (e.g., Automated exposure control, adjustment of the mA and/or kV according to patient size, use of iterative reconstruction technique). RADIATION DOSE SUMMARY: CTDlvol: 13.7 mGy DLP: 457 mGycm . COMPARISON: None available FINDINGS: Hardware: None available Lymph nodes: No lymphadenopathy. Heart: The heart is normal in size. The great vessels are normal in size and caliber. No pericardial effusion. RV/LV Diameter Ratio: Unremarkable Thoracic Aorta: Unremarkable Pulmonary Vessels: Unremarkable Most Proximal Level of Embolus (if embolus present): N/a Lungs and Airways: Central airways are patent. No suspicious parenchymal abnormality. No dominant masses. Streaky opacities in bilateral lung bases, likely scarring or atelectasis. Pleura: No pleural effusion or pneumothorax. Upper Abdomen: Unremarkable Bones: No aggressive osseous lesions. No acute fractures. CT/CTA Chest W/WO Contrast IMPRESSION: No evidence of pulmonary emboli up to the segmental arterial branches. More pe ripheral vessels are not well assessed. Reading Location: [facility]
[2024-06-29] MEDS: Morphine 4 MG/ML Syringe IV (00:24)
[2024-06-29] MEDS: 0.9% Normal Saline (1000mL) 1,000 ML 999 ML IV (00:24)
[2024-06-29] MEDS: Orphenadrine 60 MG/2 ML Ampul IV (00:25)
[2024-06-29] MEDS: Ondansetron 4 MG/2 ML Vial IV (00:25)
[2024-06-29 00:33] LABS: Absolute Lymphocyte Count 1.33 X10^3/uL (0.83-4.51); Basophil# 0.01 X10^3/uL; Basophil% 0.2 % (0-1); Eosinophil# 0.11 X10^3/uL; Eosinophils% 2.3 % (0-5); Hematocrit 38.4 % (37-47); Lymphocyte # 1.33 X10^3/ul (0.83-4.51); Lymphocyte % 28.2 % (19-41); Mean Corp Hgb Conc 33.9 g/dL (32-36); Mean Corpuscular Hgb 29.1 pg (27.0-32.0); Mean Corpuscular Volume 86.1 fL (81-99); Monocyte% 6.4 % (0-10); NRBC Flagged by Analyzer 0 % (0-5); Neutrophil # 2.95 X10^3/uL (2.7-7.7); Neutrophil % 62.5 % (47-70); Platelet Count 257 K/mm3 (150-450); RBC Distribution Width CV 12.3 % (11.6-14.6); RBC Distribution Width SD 38.4 fl (35.1-43.9); Red Blood Count 4.46 M/mm3 (4.2-5.4); White Blood Count 4.7 K/mm3 (4.4-11.0)
[2024-06-29 00:42] LABS: International Normalized Ratio 0.9; Partial Thromboplast Time 25.2 Seconds (24.1-36.2); Prothrombin Time (Protime)PT. 12.2 SECONDS (11.7-14.9)
[2024-06-29 02:51] LABS: Anion Gap 14 (5-15); BUN 14 mg/dL (4-19); BUN/Creat Ratio 17.6 RATIO (10-20); Calcium,Total 8.6 mg/dL (7.6-11.0); Carbon Dioxide 19.8 mmol/L (21.0-32.0); Chloride 97 mmol/L (98-108); Creatinine, Serum 0.81 mg/dL (0.70-1.20); EST Glomerular Filtration Rate 91 (>60); Estimated Creatinine Clearance 91.23 ml/min (50-250); Glucose 557 mg/dL (70-99); Potassium 4.1 mmol/L (3.3-5.1); Sodium Level 131 mmol/L (133-145)
[2024-06-29 03:00] VITALS: BP 110/68; PULSE 70; RESP 12; TEMP 36.4; O2SAT 98
--- NOTE | 2024-06-29 03:14 | EX.ED.DYSGE1 ---
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 She was seen few days ago after a reported mechanical fall causing pain/trauma to the right sided rib/abdomen. At that time she had blood work and a CT of her abdomen pelvis which revealed no acute findings. Patient states has been no repeat trauma but she states that the pain has moved now to her low back/rib cage region. She states she is concerned she may have broken a rib. Secondary to this she presents for evaluation. [facility] Medical History Former smoker Hernia FHx: chemotherapy Smoker Pulmonary embolism Jackson filter in place Hx of cervical cancer Diabetes Home Medications ?Medication ?Instructions ?Recorded ?Last Taken ?Type ciprofloxacin HCl 500 mg tablet 500 mg PO BID #20 TABLETS 11/21/22 Unknown Rx metronidazole 500 mg tablet 500 mg PO Q6H #40 tabs 11/21/22 Unknown Rx clotrimazole 1 % topical cream 1 applic topical BID 2 weeks #15 04/04/24 Unknown Rx grams hydrocodone-acetaminophen 5-325mg 1 tab PO Q8H PRN pain 3 days #9 04/04/24 Unknown Rx 5mg-325mg tabs hydrocodone-acetaminophen 5-325mg 1 tab PO Q6H PRN PRN Pain 3 days 06/22/24 Unknown Rx 5mg-325mg #10 TABLETS methocarbamol 500 mg tablet 1,000 mg (2 x 500 mg) PO 4X/DAY 06/29/24 Unknown Rx PRN Muscle pain/spasm #56 tabs oxycodone-acetaminophen 5 mg-325 1 tab PO Q6H PRN pain 3 days #12 06/29/24 Unknown Rx mg tablet (Percocet) tabs Allergy/AdvReac Type Severity Reaction Status Date / Time Penicillins AdvReac Nausea/Vom/ Verified 06/22/24 13:06 Diarrhea Surgical History History of hernia repair History of embolic filter insertion Hx of colostomy Hx of ileostomy Social History Smoking Status: Former smoker substance use type: does not use ROS ROS ED Constitutional Constitutional ED: Denies chills or fever(s) Eyes Eyes: Denies change in vision ENT ENT ED: Denies sore throat Cardiovascular Cardiovascular: Denies chest pain Respiratory/Chest Respiratory/Chest: Denies cough or dyspnea Gastrointestinal Gastrointestinal: Denies abdominal pain, diarrhea, nausea or vomiting Genitourinary Genitourinary ED: Denies dysuria or hematuria Musculoskeletal Musculoskeletal: Reports back pain and other Details: Positive right sided rib pain Integumentary Denies Abrasions or rash Neurologic Neurologic: Denies headache(s) Hematologic/Lymphatic Hematologic/Lymphatic: Denies easy bleeding or easy bruising EXAM Physical Exam Const Vital Signs: 06/28/24 19:01 06/28/24 23:01 Temperature 97.9 F Temperature Source Temporal Pulse Rate 95 Respiratory Rate 19 H 16 Blood Pressure 133/100 H Blood Pressure Mean 111 Pulse Ox 98 Oxygen Delivery Method Room Air Positive well nourished and well developed General Appearance ED: well developed; Negative for pallor HEENT HEENT Narrative: Normocephalic atraumatic Eyes PERRL and EOMs intact bilaterally Neck supple Chest Wall Chest Narrative: There is pain with palpation along the right posterior lower rib cage rib regions 8-12 without bony deformity or crepitance noted Resp normal respiratory effort and clear to auscultation bilaterally Cardio regular rate and regular rhythm GI normal to inspection, nondistended, normoactive bowel sounds, non-tender, non-distended and no masses GI Narrative: No voluntary guarding or rigidity or pulsatile mass Auscultation: normoactive bowel sounds Palpation: soft Back/Spine Back/Spine Narrative: No bony deformity or step-off of the thoracic or lumbar spine no midline tenderness to palpation Extremity normal to inspection Neuro oriented x3 and CN's II-XII intact bilaterally Sensorium / Orientation: alert Motor Exam: strength 5/5 throughout Psych mental status grossly normal Skin no rashes or lesions noted and no wounds General Skin Exam: Negative for jaundice or pallor MDM MDM MDM Narrative Medical decision making narrative: Patient arrived to the ER slightly hypertensive but otherwise with stable vitals. She reported pain initially along the abdomen after a fall/trauma but now has moved towards her back. Differential diagnosis rib contusion versus rib fracture based on patient's history of previous DVT/PE with no anticoagulation there is concern that endothelial injury is now led to a pulmonary contusion or PE. Secondary to this I did elect to perform repeat laboratory studies and a CTA of the chest. Labs revealed hyperglycemia consistent with her diabetes but no signs of DKA. CTA revealed no PE dissection pulmonary contusion or rib fracture or pneumothorax. Therefore this indicates patient has muscular strain and rib contusion. Her vital signs improved with the medication provided and she remained hemodynamically stable and therefore there is no need for further workup and he is otherwise safe for discharge History & Record Review Discussion w/independent historian: Patient Lab Data Attestation: I reviewed the patient's lab results. Labs: Laboratory Results - last 24 hr 06/29/24 00:25 WBC 4.7 RBC 4.46 Hgb 13.0 Hct 38.4 MCV 86.1 MCH 29.1 MCHC 33.9 RDW Std Deviation 38.4 RDW Coeff of Jennifer 12.3 Plt Count 257 MPV 9.0 Immature Gran % (Auto) 0.400 Neut % (Auto) 62.5 Lymph % (Auto) 28.2 [place] % (Auto) 6.4 Eos % (Auto) 2.3 Baso % (Auto) 0.2 Absolute Neuts (auto) 3.0 Absolute Lymphs (auto) 1.33 Nucleated RBC % 0 PT 12.2 INR 0.9 APTT 25.2 Sodium 131 L Potassium 4.1 Chloride 97 L Carbon Dioxide 19.8 L Anion Gap 14 BUN 14 Creatinine 0.81 Estim Creat Clear Calc 91.23 Est GFR (MDRD) Non-Af 91 BUN/Creatinine Ratio 17.6 Glucose 557 H* Calcium 8.6 Radiography Diagnostic Testing: Clinical Impression(s) from Imaging Studies Chest CTA 06/29/24 00:03 IMPRESSION: No evidence of pulmonary emboli up to the segmental arterial branches. More peripheral vessels are not well assessed. Reading Location: [facility] Discharge Plan Triage Chief Complaint: Chest Other ED Provider: [facility] Dx/Rx/DC Orders Clinical Impression: Contusion of rib on right side, Diabetes, Hyperglycemia, History of cervical cancer Instructions: ED Rib Contusion or Minor Fracture Prescriptions: New methocarbamol 500 mg tablet 1,000 mg PO 4X/DAY PRN (Reason: Muscle pain/spasm) Qty: 56 0RF oxycodone-acetaminophen [Percocet] 5-325 mg tablet 1 tab PO Q6H PRN (Reason: pain) 3 Days Qty: 12 0RF No Action metronidazole [metronidazole] 500 mg tablet 500 mg PO Q6H Qty: 40 0RF ciprofloxacin HCl [ciprofloxacin HCl] 500 mg tablet 500 mg PO BID Qty: 20 0RF clotrimazole 1 % cream 1 applic topical BID 14 Days Qty: 15 0RF hydrocodone-acetaminophen 5-325 mg tablet 1 tab PO Q8H PRN (Reason: pain) 3 Days Qty: 9 0RF hydrocodone-acetaminophen 5-325 mg tablet 1 tab PO Q6H PRN PRN (Reason: Pain) 3 Days Qty: 10 0RF Primary Care Provider: Curtis Darby Referrals: Curtis Darby MD [Primary Care Provider] - Activity Restrictions/Additional Instructions: Your CT scan showed no sign of blood clot or bleeding within the lung tissue or broken ribs indicating your muscles are strained and your ribs are bruised. Take the prescribed medication as directed to help control symptoms and return to the ER should you have any further concerns Print Language: Turkish Disposition Disposition: Home, Self Care Discharge Date/Time: 06/29/24 03:22
[2024-06-29] MEDS: oxyCODONE 5 MG Tablet PO (03:20)
== END 2024-06-29 03:22 | disposition home or self-care (01) ==
PROVIDERS: Emergency Provider Emergency Medicine; PCP Family Medicine; Visit Provider Emergency Medicine
DX: S20.211A Contusion of right front wall of thorax, initial encounter (principal); Z93.3 Colostomy status; Z93.2 Ileostomy status; E11.65 Type 2 diabetes mellitus with hyperglycemia; Z86.718 Personal history of other venous thrombosis and embolism; Z87.891 Personal history of nicotine dependence; Z86.711 Personal history of pulmonary embolism; Z85.41 Personal history of malignant neoplasm of cervix uteri; W19.XXXA Unspecified fall, initial encounter
CPT/HCPCS: 71275; 80048; 85025; 85610; 85730; 96361; 96374; 96375; 99284; Q9967; A4216; J2405

== ENCOUNTER 2024-12-07 19:03 | Emergency (ER) | payer BC, SELFPAY ==
[2024-12-07 19:06] VITALS: BP 117/82; PULSE 81; RESP 18; TEMP 36.8; O2SAT 97; BMI 32.5
[2024-12-07 19:10] VITALS: BP 117/82; PULSE 81; RESP 18; TEMP 36.8; O2SAT 97
[2024-12-07] MEDS: 0.9% Normal Saline (1000mL) 1,000 ML 1000 ML IV (19:39)
[2024-12-07 19:49] LABS: Mucous, Urine 0 SEEN /hpf (<or=2+)
[2024-12-07 19:51] LABS: Hematocrit 38.5 % (37-47); Hemoglobin 13.2 g/dL (12.0-15.0); Immature Granulocytes Count 0.010 X10^3/uL (0.0-0.0); Mean Corp Hgb Conc 34.3 g/dL (32-36); Mean Corpuscular Volume 84.6 fL (81-99); Mean Platelet Vol. 9.2 fl (6.2-12.0); NRBC Flagged by Analyzer 0 % (0-5); Platelet Count 282 K/mm3 (150-450); RBC Distribution Width CV 12.8 % (11.6-14.6); RBC Distribution Width SD 39.5 fl (35.1-43.9); Red Blood Count 4.55 M/mm3 (4.2-5.4); White Blood Count 4.9 K/mm3 (4.4-11.0)
[2024-12-07 19:56] LABS: Color, Urine Yellow (Yellow); Glucose, Dipstick 1000 mg/dl (Normal); Ketone-Dipstick Negative (Negative); Leukocyte Esterase-Dipstick 500 /ul (Negative); Nitrite-Dipstick Negative (Negative); Occult Blood-Urine 10 /ul (Negative); Protein-Dipstick 15 mg/dl (Negative); Specific Gravity, Urine 1.015 (1.002-1.030); Urine Bilirubin Dipstick Negative (Negative)
--- NOTE | 2024-12-07 20:07 | EX.ED.DYSGE1 ---
HPI History of Present Illness Chief Complaint: Hyperglycemia Narrative Narrative: Patient is a 44-year-old female presenting to the emergency department for 2 weeks of fatigue. Patient has a past medical history of cervical cancer in remission, DVT and diabetes, insulin-dependent. Patient states that for the past 2 weeks she has had urinary frequency, fatigue and brain fog. She states that this has happened before when her blood sugar is uncontrolled. She states she was also concerned about a possible urinary tract infection. She states she was having some pain in her low back over the past few days as well. She states yesterday she was having left sided abdominal pain. She reports she went to urgent care today and they noted there was glucose in her urine and sent her here for evaluation. She states she does not check her sugars at home she is on scheduled insulin. Denies fever, chills, chest pain, SOB, vomiting, dysuria or hematuria. Denies history of pyelonephritis or nephrolithiasis. [facility] Medical History Former smoker Hernia FHx: chemotherapy Smoker Pulmonary embolism Jackson filter in place Hx of cervical cancer Diabetes Home Medications ?Medication ?Instructions ?Recorded ?Last Taken ?Type ciprofloxacin HCl 500 mg tablet 500 mg PO BID #20 TABLETS 11/21/22 Unknown Rx metronidazole 500 mg tablet 500 mg PO Q6H #40 tabs 11/21/22 Unknown Rx clotrimazole 1 % topical cream 1 applic topical BID 2 weeks #15 04/04/24 Unknown Rx grams hydrocodone-acetaminophen 5-325mg 1 tab PO Q8H PRN pain 3 days #9 04/04/24 Unknown Rx 5mg-325mg tabs hydrocodone-acetaminophen 5-325mg 1 tab PO Q6H PRN PRN Pain 3 days 06/22/24 Unknown Rx 5mg-325mg #10 TABLETS methocarbamol 500 mg tablet 1,000 mg (2 x 500 mg) PO 4X/DAY 06/29/24 Unknown Rx PRN Muscle pain/spasm #56 tabs oxycodone-acetaminophen 5 mg-325 1 tab PO Q6H PRN pain 3 days #12 06/29/24 Unknown Rx mg tablet (Percocet) tabs nitrofurantoin 100 mg PO Q12H 5 days #10 caps 12/07/24 Unknown Rx monohydrate/macrocrystals 100 mg capsule (Macrobid) Allergy/AdvReac Type Severity Reaction Status Date / Time Penicillins AdvReac Nausea/Vom/ Verified 12/07/24 19:05 Diarrhea Family History no significant family his Surgical History History of hernia repair History of embolic filter insertion Hx of colostomy Hx of ileostomy Social History Smoking Status: Former smoker substance use type: does not use ROS ROS ED ROS Narrative see HPI EXAM Physical Exam Narrative Exam Narrative: Vital signs: Reviewed General: Alert and orientedx3. No acute distress HEENT: Head is normocephalic and atraumatic, sinuses nontender, pupils equal round and reactive. Nares are patent. Oropharynx and throat exams normal. Neck: Supple without lymphadenopathy nontender Cardiovascular: Regular rate and rhythm, no murmurs. No rubs or gallops. Normal S1 and S2 Respiratory: Clear to auscultation bilaterally. No wheezes, rales, rhonchi Abdominal: Soft and mildly tender suprapubically. Normal bowel sounds. No guarding or rebound. Nonsurgical abdomen. No CVA tenderness to palpation. Extremities: No tenderness. No bruising. Normal range of motion. Normal sensation. Back: No midline cervical, thoracic or lumbar spinal tenderness to palpation. No step offs or deformities. Skin: No rash or redness. Neurological: Cranial nerves II through XII are grossly intact. Normal strength and sensation. Normal cerebellar function The rest of the physical exam is unremarkable Const Vital Signs: 12/07/24 19:06 12/07/24 19:10 12/07/24 19:32 Temperature 98.2 F 98.2 F Temperature Source Oral Oral Pulse Rate 81 81 Respiratory Rate 18 18 Respiratory Effort Normal Non-Labored Blood Pressure 117/82 H 117/82 H Blood Pressure Mean 93 93 Pulse Ox 97 97 Oxygen Delivery Method Room Air Room Air 12/07/24 20:10 12/07/24 20:49 12/07/24 22:02 Temperature 98.2 F 98.2 F Temperature Source Oral Pulse Rate 77 72 72 Respiratory Rate 16 18 18 Respiratory Effort Blood Pressure 98/81 H 103/57 L 105/68 Blood Pressure Mean 86 72 80 Pulse Ox 98 98 98 Oxygen Delivery Method Room Air Room Air MDM MDM MDM Narrative Medical decision making narrative: Patient is a 44-year-old female presenting to the emergency department for 2 weeks of fatigue and concern for uncontrolled glucose. Patient was seen and examined. Vitals are stable. Patient resting in bed comfortably in no acute distress. Differential includes but is not limited to: DKA, hyperglycemia, UTI, pyelonephritis, nephrolithiasis, colitis, diverticulitis Patient started on a fluid bolus. CBC with no leukocytosis and a normal hemoglobin. CMP with no significant abnormalities other than hyperglycemia of 425. Normal bicarb, normal anion gap. Normal ketones. Normal lipase. Urinalysis with 1+ bacteria, WBCs and leukocyte esterase. There is a glucose in the urine however no ketones. Consistent with her hyperglycemia. Patient given 10 units subcu insulin. She was given first dose of antibiotics for UTI here. CT of the abdomen shows evidence of possible cystitis versus nondistention, consider correlation with urinalysis. No other acute process. Patient's [id number] glucose on recheck was in the low 300s. She has no evidence of DKA or HHS on labs or physical exam. She has no evidence of pyelonephritis on CT imaging or physical exam. She was updated on the findings. Prescribed antibiotics for her UTI for home. Urine culture was sent. I did recommend that she follow-up with her primary care doctor to monitor her glucose while she has a UTI. Patient discharged from the Emergency Department. I do not feel that the patient's evaluation reveals any acute reason for admission at this time. I instructed them to either follow-up with their primary care physician or promptly return to the Emergency Department for reevaluation should symptoms worsen or new symptoms develop. I explained what symptoms would indicate the need to return to the emergency department. Shared decision making was used. The patient voiced understanding of the treatment plan and is agreeable with it. Clinical impression Hyperglycemia UTI History & Record Review Discussion w/independent historian: Patient Lab Data Attestation: I reviewed the patient's lab results. Labs: Laboratory Results - last 24 hr 12/07/24 12/07/24 12/07/24 19:35 19:40 21:25 WBC 4.9 RBC 4.55 Hgb 13.2 Hct 38.5 MCV 84.6 MCH 29.0 MCHC 34.3 RDW Std Deviation 39.5 RDW Coeff of Jennifer 12.8 Plt Count 282 MPV 9.2 Immature Gran % (Auto) 0.200 Neut % (Auto) 58.3 Lymph % (Auto) 31.9 [place] % (Auto) 7.8 Eos % (Auto) 1.4 Baso % (Auto) 0.4 Absolute Neuts (auto) 2.8 Absolute Lymphs (auto) 1.55 Nucleated RBC % 0 Sodium 135 Potassium 3.8 Chloride 100 Carbon Dioxide 23.3 Anion Gap 11 BUN 9 Creatinine 0.49 L Estim Creat Clear Calc 148.41 Est GFR (MDRD) Non-Af 118 BUN/Creatinine Ratio 18.7 Glucose 425 H Calcium 9.0 Total Bilirubin 0.16 AST 12 ALT 10 Alkaline Phosphatase 76 Total Protein 6.4 Albumin 3.6 Globulin 2.8 Albumin/Globulin Ratio 1.3 Lipase 29 b-Hydroxybutyric mmol/L 0.1 Urine Color Yellow Urine Clarity Clear Urine pH 6.0 Ur Specific [place] 1.015 Urine Protein 15 H Urine Glucose (UA) 1000 H Urine Ketones Negative Urine Occult Blood 10 H Urine Nitrite Negative Urine Bilirubin Negative Urine Urobilinogen Normal Ur Leukocyte Esterase 500 H Urine RBC 0-5 SEEN Urine WBC 25-50 SEEN Ur Squamous Epith Cells 0-5 SEEN Urine Bacteria 1+ Urine Mucus 0 SEEN Urine Yeast RARE POC Glucose 314 H Radiography Diagnostic Testing: Clinical Impression(s) from Imaging Studies Abdomen/Pelvis CT 12/07/24 20:30 IMPRESSION: Mildly thickened urinary bladder wall which may reflect cystitis vs nondistention; consider correlation with urinalysis. Multiple bowel resections. Otherwise, no acute intra-abdominal process. Reading Location: [facility] Discharge Plan Triage Chief Complaint: Hyperglycemia ED Provider: Haleigh [facility] Dx/Rx/DC Orders Clinical Impression: UTI (urinary tract infection), Acute hyperglycemia Instructions: UTIs, ED Diabetic Hyperglycemia Prescriptions: New nitrofurantoin monohyd/m-cryst [Macrobid] 100 mg capsule 100 mg PO Q12H 5 Days Qty: 10 0RF Rx Instructions: must administer with a meal/food No Action metronidazole [metronidazole] 500 mg tablet 500 mg PO Q6H Qty: 40 0RF ciprofloxacin HCl [ciprofloxacin HCl] 500 mg tablet 500 mg PO BID Qty: 20 0RF clotrimazole 1 % cream 1 applic topical BID 14 Days Qty: 15 0RF hydrocodone-acetaminophen 5-325 mg tablet 1 tab PO Q8H PRN (Reason: pain) 3 Days Qty: 9 0RF hydrocodone-acetaminophen 5-325 mg tablet 1 tab PO Q6H PRN PRN (Reason: Pain) 3 Days Qty: 10 0RF methocarbamol 500 mg tablet 1,000 mg PO 4X/DAY PRN (Reason: Muscle pain/spasm) Qty: 56 0RF oxycodone-acetaminophen [Percocet] 5-325 mg tablet 1 tab PO Q6H PRN (Reason: pain) 3 Days Qty: 12 0RF Stand Alone Forms: ED Work / School Excuse Primary Care Provider: Curtis Darby Referrals: Curtis Darby MD [Primary Care Provider] - 2 Days Activity Restrictions/Additional Instructions: Take the antibiotic as prescribed. Please discuss glucose monitoring with your primary care doctor especially while you have an infection. Your evaluation in the Emergency Department did not reveal any acute reason for admission. However, I want to emphasize that you may be early in the course of a disease process or illness even if it is not present. For this reason you should follow-up within 24 hours for reevaluation with either your primary care physician or if necessary back here in the Emergency Department. You should return to the Emergency Department immediately if your symptoms worsen or new symptoms develop. Print Language: Pashto Disposition Disposition: Home, Self Care Discharge Date/Time: 12/07/24 22:05
[2024-12-07 20:10] VITALS: BP 98/81; PULSE 77; RESP 16; TEMP 36.8; O2SAT 98
[2024-12-07 20:16] LABS: AST(SGOT) 12 U/L (<=31); Alanine Aminotransfer ALT/SGPT 10 U/L (<=34); Albumin, Serum 3.6 g/dL (3.5-5.0); Alkaline Phosphatase 76 U/L (35-104); Anion Gap 11 (5-15); BETA-HYDROXYBUTYRATE 0.1 mmol/L (0.0-0.3); BUN 9 mg/dL (4-19); BUN/Creat Ratio 18.7 RATIO (10-20); Calcium,Total 9.0 mg/dL (7.6-11.0); Carbon Dioxide 23.3 mmol/L (21.0-32.0); Chloride 100 mmol/L (98-108); Estimated Creatinine Clearance 148.41 ml/min (50-250); Globulin 2.8 g/dL (2.2-4.2); Glucose 425 mg/dL (70-99); Lipase 29 U/L (13-75); Potassium 3.8 mmol/L (3.3-5.1)
[2024-12-07 20:30] LABS: Squamous Epithelial Cells - UA 0-5 SEEN /hpf (5-10)
--- NOTE | 2024-12-07 20:30 | CT_ITS ---
PROCEDURE: ABDOMEN/PELVIS W IV CONT ONLY 12/07/2024 REASON FOR EXAM: LLQ ABDOMINAL PAIN TECHNIQUE: Procedure Code: [id number] Modality: CT Procedure: ABDOMEN/PELVIS W IV CONT ONLY Coronal and Sagittal reconstruction series were provided. CONTRAST: 100 mL of Isovue 370 One or more dose reduction techniques were used (e.g., Automated exposure control, adjustment of the mA and/or kV according to patient size, use of iterative reconstruction technique. RADIATION DOSE SUMMARY: DLP: 1078 mGycm COMPARISON: None FINDINGS: Limited sections of the lung bases demonstrate no focal pulmonary mass or consolidations. The liver, spleen, pancreas, and both adrenal glands demonstrate no acute findings. Hepatomegaly to 18.9 cm. The gallbladder is contracted. The stomach is unremarkable. The small bowel loops are not dilated. Multiple bowel resections. The appendix is not clearly identified, although there are no secondary signs of appendicitis. No colonic obstruction. There is no free air or significant free fluid. The kidneys are unremarkable. Mildly thickened urinary bladder wall which may reflect cystitis vs nondistention; consider correlation with urinalysis. The pelvic structures are intact. There is no solid pelvic mass. No significant lymphadenopathy. The aorta and IVC demonstrate no acute findings. IVC filter with extraluminal prong extensions Visualized osseous structures demonstrate no acute abnormality. Postsurgical scar within the abdominal midline. CT/Abdomen/Pelvis W IV Cont ONLY IMPRESSION: Mildly thickened urinary bladder wall which may reflect cystitis vs nondistenti on; consider correlation with urinalysis. Multiple bowel resections. Otherwise, no acute intra-abdominal process. Reading Location: [id number]
[2024-12-07 20:34] LABS: Red Blood Cells-Urine 0-5 SEEN /hpf (0-5); Yeast-Urine RARE /hpf (None Seen)
[2024-12-07 20:49] VITALS: BP 103/57; PULSE 72; RESP 18; O2SAT 98
[2024-12-07] MEDS: Insulin NPH Human 100 UNITS/ML PEN 10 UNITS SC (20:49)
[2024-12-07 22:02] VITALS: BP 105/68; PULSE 72; RESP 18; TEMP 36.8; O2SAT 98
== END 2024-12-07 22:05 | disposition home or self-care (01) ==
PROVIDERS: Emergency Provider Student in an Organized Health Care Education/Training Program; PCP Family Medicine; Visit Provider Student in an Organized Health Care Education/Training Program
DX: N39.0 Urinary tract infection, site not specified (principal); Z93.3 Colostomy status; E11.65 Type 2 diabetes mellitus with hyperglycemia; Z79.4 Long term (current) use of insulin; Z83.3 Family history of diabetes mellitus; R53.83 Other fatigue; Z87.891 Personal history of nicotine dependence; Z86.711 Personal history of pulmonary embolism; Z85.41 Personal history of malignant neoplasm of cervix uteri
CPT/HCPCS: 74177; 80053; 81001; 82010; 82962; 83690; 85025; 87077; 87086; 87088; 87186; 96360; 99283; Q9967; A4216